=== PATIENT | female | born 1935 | race Caucasian/White ===

== ENCOUNTER → 2017-03-03 | Outpatient (CLI) | payer MEDICARE ==
[~2017-03-03] MED LIST: ASCO500T PO; ASPI1TAB PO; ASPI1TAB15 PO; BUSP5TA PO; CODCAP PO; COLA100C5 PO; COUM2.5T17 PO; COUM7.5T PO; CRAN500C2 PO; FERR32TA PO; GEMF600T PO; GLUC750T22 PO; GLUCTAB6 PO; IRBE300T10 PO; KRIL300C PO; LEVO112T2 PO; LIDO5TD TD; MAPA325T2 PO; MELO7.5T7 PO; METO1TAB7 PO; OMEP40CA2 PO; PEG1POW PO; PERC5TAB12 PO; POTA99TA PO; PRAV40TA2 PO; SENN1TAB2 PO; SERT25TA88 PO; SERT50TA PO; VITA100072 PO; WELLTAB38 PO
--- NOTE | 2017-03-03 11:00 | REPMRS ---
Patient History The patient states she has not had a clinical breast exam in over a year. Patient is postmenopausal. Family history of breast cancer in sister at age 78, breast cancer in sister at age 72, and unknown cancer in brother at age 67. Benign radio exam breast specimen of the left breast, April 04, 2016. Benign stereotatic loc for ea lesion of the left breast, April 04, 2016. Digital Mammo Screening Bilat: March 03, 2017 - Exam #: [id number] Bilateral CC and MLO view(s) were taken. Technologist: Ashley Garcia, Technologist Prior study comparison: March 08, 2016, left breast digital mammo diagnostic unilateral performed at [facility]. February 28, 2016, bilateral digital mammo screening bilat performed at [facility]. FINDINGS: There are scattered fibroglandular densities. There is a needle biopsy marker clip in the left breast. There is a moderate amount of residual fibroglandular tissue which is fairly symmetric. There is no interval development of dominant mass, architectural distortion, or clustered microcalcification typical of malignancy. There has been no change in the appearance of the mammogram from the prior studies. ASSESSMENT: BI-RADS/ACR category 2 mammogram. Benign finding(s). Recommendation Routine screening mammogram of both breasts in 1 year (for women over age 40). This mammogram was interpreted with the aid of an FDA-approved computer-aided dectection system. Electronically Signed By: Hector Mcfarland MD 03/03/17 1100
== END ==
LOC: M RAD 09:56
PROVIDERS: ATTEND Nurse Practitioner Adult Health
DX: Z12.31 Encounter for screening mammogram for malignant neoplasm of breast (principal)

== ENCOUNTER → 2017-03-10 | Outpatient (REF) | payer MEDICARE ==
[2017-03-10 14:08] LABS: BASO % 0.8 % (0.0-1.0); EOS # 0.1 K/mm3 (0.0-0.50); EOS % 1.4 % (0.0-3.0); LYMPH # 0.8 K/mm3 (1.5-4.5); MEAN CORPUSCULAR HGB CONC 33.5 g/dl (32.0-36.5); MEAN CORPUSCULAR VOLUME 92.6 fl (80.0-96.0); MONO # 0.3 K/mm3 (0.0-0.8); MONO % 5.6 % (0.0-5.0); NEUTROPHILS % 76.9 % (36.0-66.0); RED CELL DISTRIBUTION WIDTH 12.5 % (11.5-14.5); WHITE BLOOD COUNT 5.2 K/mm3 (4.0-10.0)
[2017-03-10 14:59] LABS: ALBUMIN/GLOBULIN RATIO 1.29 (1.00-1.93); ALKALINE PHOSPHATASE 58 U/L (45-117); ALT/SGPT 17 U/L (12-78); ANION GAP 7 MEQ/L (8-16); AST/SGOT 18 U/L (15-37); BILIRUBIN,TOTAL 0.5 MG/DL (0.2-1.0); BLOOD UREA NITROGEN 23 MG/DL (7-18); CALCIUM LEVEL 10.5 MG/DL (8.8-10.2); CARBON DIOXIDE LEVEL 29 MEQ/L (21-32); CHLORIDE LEVEL 101 MEQ/L (98-107); CHOLESTEROL LEVEL 146 MG/DL (<200); FREE T4 1.16 NG/DL (0.76-1.46); GLOMERULAR FILTRATION RATE > 60.0 (>32); GLUCOSE, FASTING 86 MG/DL (83-110); POTASSIUM SERUM 4.1 MEQ/L (3.5-5.1); SODIUM LEVEL 137 MEQ/L (136-145); TOTAL PROTEIN 7.1 GM/DL (6.4-8.2); TRIGLYCERIDES LEVEL 77 MG/DL (<150)
== END ==
LOC: M LABDRAW1 13:21
PROVIDERS: ATTEND Nurse Practitioner Adult Health
DX: Z51.81 Encounter for therapeutic drug level monitoring (principal); Z79.899 Other long term (current) drug therapy; E78.00 Pure hypercholesterolemia, unspecified; I49.9 Cardiac arrhythmia, unspecified; R55 Syncope and collapse; E55.9 Vitamin D deficiency, unspecified; E03.9 Hypothyroidism, unspecified; E78.1 Pure hyperglyceridemia

== ENCOUNTER 2017-03-12 06:36 | Inpatient (IN) | payer MEDICARE, BC ==
[~2017-03-12] VITALS: Ht 160 cm; Wt 61.1 kg
[~2017-03-12 06:36] MED LIST changes: -ASPI1TAB15 PO; -BUSP5TA PO; -GLUCTAB6 PO; -KRIL300C PO; -SERT25TA88 PO
[2017-03-12] MEDS ORDERED: MORPHINE 2 MG/ML 1ML SYRINGE IV ONE (07:30)
[2017-03-12] MEDS ORDERED: ONDANSETRON 4MG/2ML VIAL (J2405) IV ONE (07:30)
[2017-03-12 07:51] LABS: BASO % 0.5 % (0.0-1.0); EOS % 0.3 % (0.0-3.0); LARGE UNSTAINED CELL # 0.1 K/mm3 (0.0-0.4); LARGE UNSTAINED CELL % 1.2 % (0.0-4.0); LYMPH # 0.8 K/mm3 (1.5-4.5); LYMPH % 8.9 % (24.0-44.0); MEAN CORPUSCULAR HEMOGLOBIN 30.7 pg (27.0-33.0); MEAN CORPUSCULAR HGB CONC 34.6 g/dl (32.0-36.5); MEAN CORPUSCULAR VOLUME 88.7 fl (80.0-96.0); MONO # 0.5 K/mm3 (0.0-0.8); NEUTROPHILS % 83.1 % (36.0-66.0); PLATELET COUNT, AUTOMATED 241 k/mm3 (150-450); RED CELL DISTRIBUTION WIDTH 12.1 % (11.5-14.5); WHITE BLOOD COUNT 8.4 K/mm3 (4.0-10.0)
[2017-03-12 08:05] LABS: ANION GAP 8 MEQ/L (8-16); BLOOD UREA NITROGEN 26 MG/DL (7-18); CALCIUM LEVEL 10.4 MG/DL (8.8-10.2); CARBON DIOXIDE LEVEL 25 MEQ/L (21-32); CHLORIDE LEVEL 100 MEQ/L (98-107); CREATININE FOR GFR 0.94 MG/DL (0.55-1.02); GLOMERULAR FILTRATION RATE > 60.0 (>32); GLUCOSE, FASTING 93 MG/DL (83-110); POTASSIUM SERUM 3.8 MEQ/L (3.5-5.1); SODIUM LEVEL 133 MEQ/L (136-145)
--- NOTE | 2017-03-12 08:58 | REP ---
Lumbar spine five views: There are no comparison studies. There is diffuse demineralization. Vertebral body heights are normal. No compression deformities. There is disc space narrowing and degenerative disc disease at L1-2, L4-5 and L5 S1. There is a degenerative calcification within the intervertebral disc annulus anteriorly at L4-5. No spondylolysis is identified. There is grade 1 anterolisthesis of L4-5, likely degenerative. 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 There is mild lumbar scoliosis convex left. The pedicles and sacroiliac articulations are unremarkable. There is internal fixation of the left hip. There is questionably a calcification superimposed over the left kidney. Impression: Multilevel degenerative disc disease. Mild scoliosis. Degenerative grade 1 anterolisthesis of L4. Demineralization. No vertebral body compression deformities. There is question of a calcification superimposed over the left kidney. Signed by Pablito Bar MD 03/12/2017 08:48 A
[2017-03-12 09:10] LABS: ERYTHROCYTE SEDIMENTATION RATE 41 mm/hr (0-30)
[2017-03-12] MEDS ORDERED: MORPHINE 2 MG/ML 1ML SYRINGE IV PRN ×2 (12:30→18:45)
--- NOTE | 2017-03-12 16:44 | REP ---
MRI LUMBAR BEFORE AND AFTER THE ADMINISTRATION OF INTRAVENOUS GADOLINIUM. Gadolinium utilized: 12 mL of ProHance. HISTORY: Possible discitis. The patient has severe pain and difficulty ambulating. COMPARISON: 01/20/2012 There is disc space hydrational signal loss at every level, status quo with disc space height loss universally at L4-5 and L5-S1, status quo. More mild posterior disc space narrowing is seen at all other levels. The marrow signal is again seen to be within normal limits. There is no abnormal signal seen in the imaged portion of the spinal cord. At the L1-2 level, there is a broad-based annular bulge which is unchanged. The small right paracentral disc protrusion seen on the prior exam has dessicated. Degenerative facet joint changes are again seen bilaterally with thickening of the ligamentum flava and the factors in concert are again seen to cause mild central canal stenosis. There is no foraminal narrowing or acute disc extrusion. At the L2-3 level, there is a broad based annular bulge seen in conjunction with degenerative facet joint changes bilaterally and thickening of the ligamentum flava. The anterior surface of the thecal sac is flattened and straightened by the discogenic change and the factors in concert are causing mild central canal stenosis, status quo. There is no foraminal stenosis or disc extrusion. At the L3-4 level, there is a large asymmetric broad-based annular bulge with a prominent left posterolateral component which impinges upon the left foraminal L3 nerve. The right L3 foraminal nerve exits freely. Hypertrophic degenerative facet joint changes are seen bilaterally with thickening of the ligamentum flava and all factors in concert are again seen to cause moderate central canal stenosis which has increased somewhat from the prior exam. There is no evidence of an acute disc extrusion. At the L4-5 level, there is a broad-based annular bulge seen in conjunction with degenerative facet joint changes bilaterally and thickening of the ligamentum flava. The factors in concert are again seen to cause moderate central canal stenosis and right L4 foraminal nerve compression. The left L4 foraminal nerve is non-compressed. No acute disc extrusion has developed. Note is again made of a 4 mm spondylolisthesis of L4 upon L5, status quo. At the L5-S1 level, an asymmetric broad-based annular bulge is again noted which mildly compresses the anterior thecal sac causing a slight concave anterior deformity which has increased minimally from the prior exam. No acute disc extrusion has developed. Degenerative facet joint changes are present bilaterally with thickening of the ligamentum flava again seen to cause mild compression of the right L5 foraminal nerve. Note is made of T2 hypersignal and enhancement involving the soft tissues surrounding the L3-4 and L5 facet joints. There is a small amount of fluid within the L3-4 facet joints and a minimal amount of fluid in the L2-3 facet joints. The small amount of fluid has increased from the prior exam. There is no evidence of abnormal enhancement involving any of the discs and there is no abnormal paraspinal vertebral body enhancement. IMPRESSION: Multilevel discogenic changes and facet joint degenerative changes as described above and with evidence of posterior soft tissue edema of uncertain etiology which should be correlated clinically with appropriate followup if necessary. No well-defined abscess is noted. Signed by Bonilla Sorensen DO 03/12/2017 05:07 P
[2017-03-12] MEDS ORDERED: BUSP5TA PO (17:59)
[2017-03-12] MEDS ORDERED: GLUCTAB6 PO (17:59)
[2017-03-12] MEDS ORDERED: MELO7.5T7 PO (17:59)
[2017-03-12] MEDS ORDERED: ASPI1TAB15 PO (17:59)
[2017-03-12] MEDS ORDERED: POTA99TA PO (17:59)
[2017-03-12] MEDS ORDERED: SERT25TA88 PO (17:59)
[2017-03-12] MEDS ORDERED: METO1TAB7 PO (17:59)
[2017-03-12] MEDS ORDERED: IRBE300T10 PO (17:59)
[2017-03-12] MEDS ORDERED: NS 1,000 ML IV SCH (18:45)
[2017-03-12] MEDS ORDERED: ONDANSETRON 4MG/2ML VIAL (J2405) IV PRN (18:45)
--- NOTE | 2017-03-12 19:38 | HPEPDOC ---
Medical History and Physical Date of Admission Mar 12, 2017 at 18:38 History and Physical PRIMARY CARE PROVIDER: ATTENDING: Dr. Naseem Hua CHIEF COMPLAINT: Back pain HISTORY OF PRESENT ILLNESS: This 81-year-old female past medical history of hypertension, GERD, hypothyroidism, hyperlipidemia who presents with intractable back pain. Patient states that patient had developed right buttock and lumbar pain since last night. States it happened suddenly. No precipitating events. No trauma or falls. No fevers or chills. No lower extremity weakness or numbness. States she' s having difficulty lifting her right leg and maintaining it elevated secondary to the pain. Does note right buttock as well as lumbar pain however no radiculopathy down her lower extremities. Patient denies any prior episodes. In the ED patient had an MRI of the lumbar spine with results noted below. Dr. Rodriguez evaluated the patient in the ED, and has reviewed the images of the MRI of the lumbar spine with recommendations for admission for pain control and further workup. Pain management consultation for possible trigger point injections, as well as a CT-guided biopsy of the right L4 paraspinal lesion. He also notes that if no improvement is noted, neurosurgery will be considered for decompression and fusion. PAST MEDICAL HISTORY: As per HPI PAST SURGICAL HISTORY: History of left hip fracture status post repair May 2016, hysterectomy, tonsillectomy, foot surgery SOCIAL HISTORY: Denies tobacco, alcohol, illicit drug use. Lives with family FAMILY HISTORY: Noncontributory ALLERGIES: Please see below. REVIEW OF SYSTEMS: HEENT: Denies sore throat/headache CARDIOVASCULAR: Denies chest pain/palpitations RESPIRATORY: Denies shortness of breath/cough GASTROINTESTINAL: denies nausea/vomiting GENITOURINARY: Denies dysuria/urinary urgency. MUSCULOSKELETAL: Denies myalgias/arthralgias NEUROLOGICAL: Denies any focal weakness. Increased pain with raising RLE. HOME MEDICATIONS: Please see below. PHYSICAL EXAMINATION: Vitals: (see below) General: No acute distress, laying comfortably in bed. HEENT: Moist mucous membranes. Neck: No JVD or lymphadenopathy Cardiac: RRR, No murmurs Pulm: Clear to auscultation b/l. No wheezing, rhonchi Abd: NT/ND + BS Ext: No edema or cyanosis. Back - Tender to palpation R paraspinal region. Neuro: Strength 5/5 BUE. 5/5 strength LLE. 4/5 strength RLE. Negative Babinki. Sensation to fine touch/pinprick BLE intact. LABORATORY DATA: See below. IMAGING: MRI lumbar spine 03/12/17 There is disc space hydrational signal loss at every level, status quo with disc space height loss universally at L4-5 and L5-S1, status quo. More mild posterior disc space narrowing is seen at all other levels. The marrow signal is again seen to be within normal limits. There is no abnormal signal seen in the imaged portion of the spinal cord. At the L1-2 level, there is a broad-based annular bulge which is unchanged. The small right paracentral disc protrusion seen on the prior exam has dessicated. Degenerative facet joint changes are again seen bilaterally with thickening of the ligamentum flava and the factors in concert are again seen to cause mild central canal stenosis. There is no foraminal narrowing or acute disc extrusion. At the L2-3 level, there is a broad based annular bulge seen in conjunction with degenerative facet joint changes bilaterally and thickening of the ligamentum flava. The anterior surface of the thecal sac is flattened and straightened by the discogenic change and the factors in concert are causing mild central canal stenosis, status quo. There is no foraminal stenosis or disc extrusion. At the L3-4 level, there is a large asymmetric broad-based annular bulge with a prominent left posterolateral component which impinges upon the left foraminal L3 nerve. The right L3 foraminal nerve exits freely. Hypertrophic degenerative facet joint changes are seen bilaterally with thickening of the ligamentum flava and all factors in concert are again seen to cause moderate central canal stenosis which has increased somewhat from the prior exam. There is no evidence of an acute disc extrusion. At the L4-5 level, there is a broad-based annular bulge seen in conjunction with degenerative facet joint changes bilaterally and thickening of the ligamentum flava. The factors in concert are again seen to cause moderate central canal stenosis and right L4 foraminal nerve compression. The left L4 foraminal nerve is non-compressed. No acute disc extrusion has developed. Note is again made of a 4 mm spondylolisthesis of L4 upon L5, status quo. At the L5-S1 level, an asymmetric broad-based annular bulge is again noted which mildly compresses the anterior thecal sac causing a slight concave anterior deformity which has increased minimally from the prior exam. No acute disc extrusion has developed. Degenerative facet joint changes are present bilaterally with thickening of the ligamentum flava again seen to cause mild compression of the right L5 foraminal nerve. Note is made of T2 hypersignal and enhancement involving the soft tissues surrounding the L3-4 and L5 facet joints. There is a small amount of fluid within the L3-4 facet joints and a minimal amount of fluid in the L2-3 facet joints. The small amount of fluid has increased from the prior exam. There is no evidence of abnormal enhancement involving any of the discs and there is no abnormal paraspinal vertebral body enhancement. IMPRESSION: Multilevel discogenic changes and facet joint degenerative changes as described above and with evidence of posterior soft tissue edema of uncertain etiology which should be correlated clinically with appropriate followup if necessary. No well-defined abscess is noted. Lumbar X ray 03/12/17 Impression: Multilevel degenerative disc disease. Mild scoliosis. Degenerative grade 1 anterolisthesis of L4. Demineralization. No vertebral body compression deformities. There is question of a calcification superimposed over the left kidney. MICROBIOLOGY: Please see below. ASSESSMENT/PLAN: 1. Intractable back pain with MRI noting Lumbar spine with posterior soft tissue edema of unknown etiology as well as degenerative joint disease. Neurosurgery does not recommend steroids or antibiotics at this time. Patient does have mild elevations of her ESR/CRP. No leukocytosis. No fevers. Patient will be started on a pain regimen and pain management has been consulted. CT- guided biopsy has been ordered as recommended by neurosurgery. We'll follow closely with neurosurgery for further recommendations. Neuro checks every 4 hours. 2. History of GERD- continue home meds 3. History of hypertension- continue home meds 4. Hyperlipidemia- continue home meds 5. Mild hypercalcemia- we'll repeat in the a.m. Asymptomatic. Started on IV fluids. ? Need for skeletal survey given current lumbar pathology. DVT prophylaxis SCDs. Consider Lovenox after CT-guided biopsy is obtained. Patient will be followed by Dr. Naseem Hua starting 03/13/17 at 7 AM. Vital Signs Vital Signs Date Time Temp Pulse Resp B/P (MAP) Pulse Ox O2 Delivery O2 Flow Rate FiO2 03/12/17 15:11 18 03/12/17 15:09 93 03/12/17 14:53 98.1 84 Room Air 127/60 (82) Laboratory Data Labs 24H Laboratory Tests 2 03/12/17 07:39: White Blood Count 8.4, Red Blood Count 4.09, Hemoglobin 12.6, Hematocrit 36.3, Mean Corpuscular Volume 88.7, Mean Corpuscular Hemoglobin 30.7, Mean Corpuscular Hemoglobin Concent 34.6, Red Cell Distribution Width 12.1, Platelet Count 241, Neutrophils (%) (Auto) 83.1H, Lymphocytes (%) (Auto) 8.9L, Monocytes (%) (Auto) 6.0H, Eosinophils (%) (Auto) 0.3, Basophils (%) (Auto) 0.5, Neutrophils # (Auto) 7.0, Lymphocytes # (Auto) 0.8L, Monocytes # (Auto) 0.5, Eosinophils # (Auto) 0.0, Basophils # (Auto) 0.0, Large Unclassified Cells % 1.2 , Large Unclassified Cells # 0.1, Erythrocyte Sedimentation Rate 41H, Anion Gap 8, Glomerular Filtration Rate > 60.0, Blood Urea Nitrogen 26H, Creatinine 0.94, Sodium Level 133L, Potassium Level 3.8, Chloride Level 100, Carbon Dioxide Level 25, Calcium Level 10.4H, C-Reactive Protein, Quantitative 1.78H CBC/BMP Laboratory Tests 03/12/17 07:39 Red Blood Count 4.09, Mean Corpuscular Volume 88.7, Mean Corpuscular Hemoglobin 30.7, Mean Corpuscular Hemoglobin Concent 34.6, Red Cell Distribution Width 12.1 , Neutrophils (%) (Auto) 83.1 H, Lymphocytes (%) (Auto) 8.9 L, Monocytes (%) ( Auto) 6.0 H, Eosinophils (%) (Auto) 0.3, Basophils (%) (Auto) 0.5, Neutrophils # (Auto) 7.0, Lymphocytes # (Auto) 0.8 L, Monocytes # (Auto) 0.5, Eosinophils # (Auto) 0.0, Basophils # (Auto) 0.0, Calcium Level 10.4 H Home Medications Scheduled (Sertraline HCl) 25 Mg Tab, 25 MG PO QHS (Glucosamine Chondroitin) 1 Tab Tab, 1 TAB PO DAILY Ascorbic Acid (Ascorbic Acid) 500 Mg Tab, 500 MG PO DAILY Aspirin (Aspirin) 81 Mg Tab, 81 MG PO QHS Bupropion HCl (Wellbutrin Xl) 150 Mg Tab, 150 MG PO DAILY Buspirone HCl (Buspirone HCl) 5 Mg Tab, 5 MG PO BID Cod Liver Oil (Cod Liver Oil) 1 Cap Cap, 1 CAP PO DAILY Cranberry Extract (Cranberry) 500 Mg Cap, 500 MG PO DAILY Cyanocobalamin (Vitamin B12) 1,000 Mcg Tab, 1,000 MCG PO DAILY Gemfibrozil (Gemfibrozil) 600 Mg Tab, 600 MG PO QPM Irbesartan (Irbesartan) 300 Mg Tab, 300 MG PO DAILY Levothyroxine Sodium (Synthroid) 112 Mcg Tab, 112 MCG PO QAM Meloxicam (Meloxicam) 7.5 Mg Tab, 7.5 MG PO DAILY Metoprolol Succinate (Metoprolol Succinate ER) 50 Mg Tab, 50 MG PO QHS Omeprazole (Omeprazole) 40 Mg Cap, 40 MG PO DAILY Potassium (Potassium) 99 Mg Tab, 99 MG PO QPM Pravastatin Sod (Pravastatin Sodium) 40 Mg Tab, 40 MG PO QHS Allergies Coded Allergies: Magnesium (Verified Allergy, Severe, vomit, 03/12/17) Hydrocodone (Unverified Allergy, Unknown, HALLUCINATIONS, 03/12/17) Penicillins (Verified Allergy, Unknown, 11/23/12) Penicillins Cross Reactors (Verified Allergy, Unknown, 11/23/12) Sulfa Drugs (Verified Allergy, Unknown, 11/23/12) Sulfa Drugs Cross Reactors (Verified Allergy, Unknown, 11/23/12) Tetracycline (Verified Allergy, Unknown, 11/23/12) JUNG RIOS MD Mar 12, 2017 19:38
[2017-03-12 22:25] VITALS: BP 153/70
[2017-03-13] MEDS: SERTRALINE HCL 25 MG TABLET PO SCH ×2 (00:07→21:38)
[2017-03-13] MEDS: PERCOCET 5MG/325MG TAB PO PRN ×2 (00:07→09:48)
[2017-03-13] MEDS: ASPIRIN 81 MG ENTERIC TAB PO SCH ×2 (00:08→21:38)
[2017-03-13] MEDS: GEMFIBROZIL 600 MG TAB PO SCH ×2 (00:08→21:38)
[2017-03-13] MEDS: PRAVASTATIN 20 MG TAB PO SCH ×2 (00:08→21:37)
[2017-03-13] MEDS: METOPROLOL SUCC (TopROL XL) 50MG **XL** TAB PO SCH ×2 (00:08→21:38)
[2017-03-13] MEDS: busPIRone 5 MG TAB PO SCH ×3 (00:08→21:38)
[2017-03-13 02:00] VITALS: BP 124/61
[2017-03-13] MEDS: LEVOTHYROXINE 112MCG TABLET (0.112MG) PO SCH (05:53)
[2017-03-13 06:00] VITALS: BP 131/59
[2017-03-13 07:35] LABS: IONIZED CALCIUM 5.3 MG/DL (4.5-5.3)
[2017-03-13 07:40] LABS: MEAN CORPUSCULAR HEMOGLOBIN 30.2 pg (27.0-33.0); MEAN CORPUSCULAR HGB CONC 33.3 g/dl (32.0-36.5); MEAN CORPUSCULAR VOLUME 90.9 fl (80.0-96.0); RED CELL DISTRIBUTION WIDTH 12.2 % (11.5-14.5)
[2017-03-13 08:08] LABS: ALBUMIN 3.4 GM/DL (3.2-5.2); ALBUMIN/GLOBULIN RATIO 1.21 (1.00-1.93); ALKALINE PHOSPHATASE 56 U/L (45-117); ALT/SGPT 14 U/L (12-78); ANION GAP 7 MEQ/L (8-16); AST/SGOT 12 U/L (15-37); BILIRUBIN,TOTAL 0.6 MG/DL (0.2-1.0); BLOOD UREA NITROGEN 24 MG/DL (7-18); CALCIUM LEVEL 9.9 MG/DL (8.8-10.2); CARBON DIOXIDE LEVEL 28 MEQ/L (21-32); CHLORIDE LEVEL 100 MEQ/L (98-107); CREATININE FOR GFR 0.89 MG/DL (0.55-1.02); GLOMERULAR FILTRATION RATE > 60.0 (>32); GLUCOSE, FASTING 92 MG/DL (83-110); POTASSIUM SERUM 4.4 MEQ/L (3.5-5.1); SODIUM LEVEL 135 MEQ/L (136-145); TOTAL PROTEIN 6.2 GM/DL (6.4-8.2)
[2017-03-13] MEDS: OMEPRAZOLE 20 MG CAP PO SCH (09:46)
[2017-03-13] MEDS: CYANOCOBALAMIN 500 MCG TAB PO SCH (09:46)
[2017-03-13] MEDS: ASCORBIC ACID 500 MG TAB PO SCH (09:47)
[2017-03-13] MEDS: IRBESARTAN 150 MG TAB PO SCH (09:47)
[2017-03-13] MEDS: MELOXICAM (MOBIC) 7.5 MG TAB PO SCH (09:47)
[2017-03-13] MEDS: buPROPion **XL** TABLET 150MG (WELLBUTRIN XL) PO SCH (09:47)
--- NOTE | 2017-03-13 12:52 | IPN ---
DATE: 03/13/2017 SUBJECTIVE: Today, the patient tells me she feels significant better this morning. She tells me that she is able to get up and walk to the bathroom this morning, which she was unable to do yesterday. She tells me that she still has some soreness and pain in her low back into the right buttock, but it is significantly improved. She denies chest pain, paresthesias, bladder or bladder incontinence, weakness. OBJECTIVE: VITAL SIGNS: Temperature 97.6, pulse 50, respiratory rate 18, blood pressure 131/59, oxygen saturation 94% on room air. GENERAL: She is a frail elderly female laying flat in bed. She is accompanied by her daughter and her . She does not appear to be in any acute distress whatsoever. HEENT: Cranial nerves II through XII are grossly intact. She has moist mucous membranes. No elevation of central venous pressure. CARDIOVASCULAR EXAM: S1, S2 regular. RESPIRATORY EXAM: Clear. ABDOMINAL EXAM: Benign. EXTREMITIES: No clubbing, cyanosis, or edema. She is able to pass a straight leg test on both sides. She does have tenderness in her L5 midline area as well as her right sacroiliac joint. Her pain is reproducible to palpation. LABORATORY STUDIES: WBC 6.0, hemoglobin 11.6, platelet count 237. She has an ESR of 41. Chemistry panel: Sodium 135, potassium 4.4, chloride 100, bicarb 28, BUN 24, creatinine 0.8. Calcium is 9.9. Ionized calcium is within normal limits. CRP yesterday was 1.7. No microbiology has been drawn. Lumbar spine MRI reveals multilevel discogenic changes in the fossa joint. Degenerative change with evidence of posterior soft tissue edema of uncertain etiology. No ill defined abscess is noted. ASSESSMENT/PLAN: This is an 81-year-old female with low back pain and right SI joint pain. PROBLEMS: 1. Intractable back pain. The patient's back pain is no longer intractable. It started Friday evening with an ache in the right SI joint area and as of Friday was intractable. This morning easily controlled. She has not required any IV narcotics since yesterday afternoon. She has received two tablets of Percocet since midnight and her pain is well controlled. I have had the chance to speak with Dr. Rodriguez of neurosurgery who previously had recommended not using steroids or antibiotics. He did suggest pain management consult and CT guided biopsy. I cannot appreciate any clear well defined mass that would require surgical intervention and given that her symptoms are improved, we will proceed with biopsy, but I suspect that she may have some SI joint inflammation and may benefit from a steroid injection from the pain clinic. Consult has been placed. Will have the patient work with physical therapy, up and ambulate. Continue with meloxicam and Percocet as needed. 2. Mood disorder. Continue with Wellbutrin, buspirone, Zoloft. 3. B12 deficiency. Continue with supplementation. 4. Hypertension, controlled. Continue with irbesartan. The patient is on Toprol XL. 5. Gastroesophageal reflux disease (GERD). Continue with omeprazole. 6. Hypothyroidism. Continue with Synthroid. 7. Dyslipidemia. Continue with gemfibrozil and pravastatin. 8. Hypercalcemia, resolved. 9. Deep vein thrombosis (DVT) prophylaxis. Will consider following CT guided biopsy. For the time being, she is up and able to ambulated with sequential and thromboembolic deterrent stockings (TEDS). Will continue to follow this patient closely. At this time, I see no need for any operative intervention.
[2017-03-13 14:00] VITALS: BP 127/66
--- NOTE | 2017-03-13 20:32 | CR ---
DATE OF CONSULTATION: 03/13/2017 CHIEF COMPLAINT: Low back pain. HISTORY OF PRESENT ILLNESS: Wendy is a pleasant 81-year-old female who had acute onset of low back pain and right leg pain approximately 2 days ago and was admitted yesterday for intractable back pain. She is doing much better today. She has been up walking with family without much distress. She has only required a couple of doses of Percocet. Imaging studies of her lumbosacral (LS) spine are revealing, mainly arthritic changes. She has never had chronic low back pain or back pain issues in the past. Denies recent fever, illness, or weight loss. Denies bowel or bladder incontinence. Has supportive family. She is hoping to go home tomorrow. PAST MEDICAL HISTORY: 1. Hypertension. 2. Gastroesophageal reflux disease (GERD). 3. Hypothyroidism. 4. Hyperlipidemia. PAST SURGICAL HISTORY: 1. Left hip fracture status post repair May 2016. 2. Hysterectomy. 3. Tonsillectomy. 4. Foot surgery. SOCIAL HISTORY: Lives with her . Supportive family nearby. Denies use of alcohol, tobacco, or illicit drugs. FAMILY HISTORY: Noncontributory. ALLERGIES: HYDROCODONE, MAGNESIUM, PENICILLINS, PENICILLIN CROSS-REACTORS, SULFA DRUGS, SULFA DRUG CROSS-REACTORS, TETRACYCLINE. REVIEW OF SYSTEMS: An 11-point review of systems negative except for reports in history of present illness (HPI). PHYSICAL EXAMINATION: Awake, alert, pleasant. Normal affect. VITAL SIGNS: 97.8, 73, 20, blood pressure (BP) 127/66, oxygen saturation 99% on room air. CARDIAC: S1, S2. Normal rate and rhythm. RESPIRATORY: Lung sounds clear. Respirations nonlabored. Inspection of spine: Mild tenderness with palpation over the LS axis and lumbar facet area. Specific point tenderness noted over sacroiliac joint (SIJ) area with deep palpation. left greater than right. NEUROMUSCULAR: Able to move all four extremities. Normal sensation to light touch, upper and lower extremities. No edema. ASSESSMENT: 1. Lumbosacral spondylosis. 2. Sacroiliac joint pain. 3. Lumbar spinal stenosis. PLAN: Discussed with the patient and family options of injections for pain, mainly, to start with, sacroiliac joint injection. Potential risks and benefits were reviewed. At this point, the patient is doing much better and really does not want to take on any risks associated with the procedure, and she is aware that if this becomes a chronic issue for her, she could see us as an outpatient per referral of her primary care provider. Continue with efforts with physical therapy. Hopefully she will be able to be discharged soon. If you have any questions or concerns, please do not hesitate to contact us.
[2017-03-13 22:00] VITALS: BP 148/76
[2017-03-14 04:00] VITALS: BP 127/60
[2017-03-14] MEDS: LEVOTHYROXINE 112MCG TABLET (0.112MG) PO SCH (05:51)
[2017-03-14 06:29] LABS: MEAN CORPUSCULAR HEMOGLOBIN 30.9 pg (27.0-33.0); MEAN CORPUSCULAR HGB CONC 34.2 g/dl (32.0-36.5); MEAN CORPUSCULAR VOLUME 90.3 fl (80.0-96.0); RED CELL DISTRIBUTION WIDTH 12.2 % (11.5-14.5); WHITE BLOOD COUNT 8.4 K/mm3 (4.0-10.0)
[2017-03-14 06:41] LABS: ANION GAP 9 MEQ/L (8-16); BLOOD UREA NITROGEN 19 MG/DL (7-18); CALCIUM LEVEL 9.9 MG/DL (8.8-10.2); CARBON DIOXIDE LEVEL 27 MEQ/L (21-32); CHLORIDE LEVEL 100 MEQ/L (98-107); CREATININE FOR GFR 0.89 MG/DL (0.55-1.02); GLOMERULAR FILTRATION RATE > 60.0 (>32); GLUCOSE, FASTING 109 MG/DL (83-110); POTASSIUM SERUM 4.2 MEQ/L (3.5-5.1); SODIUM LEVEL 136 MEQ/L (136-145)
--- NOTE | 2017-03-14 08:31 | REP ---
Chest, single PA view, 08:08 a.m.: Comparison is 2014. There are no focal infiltrates. No pleural effusions. No masses. The lung caballero are clear. Cardiac size is normal. The paulo, mediastinum, and bony thorax are unremarkable. Impression: Negative single PA view of the chest. Signed by Pablito Bar MD 03/14/2017 08:23 A
[2017-03-14] MEDS: MELOXICAM (MOBIC) 7.5 MG TAB PO SCH (09:28)
[2017-03-14] MEDS: busPIRone 5 MG TAB PO SCH (09:28)
[2017-03-14 09:29] VITALS: BP 127/60
[2017-03-14] MEDS: CYANOCOBALAMIN 500 MCG TAB PO SCH (09:29)
[2017-03-14] MEDS: IRBESARTAN 150 MG TAB PO SCH (09:29)
[2017-03-14] MEDS: OMEPRAZOLE 20 MG CAP PO SCH (09:30)
[2017-03-14] MEDS: ASCORBIC ACID 500 MG TAB PO SCH (09:30)
[2017-03-14] MEDS: buPROPion **XL** TABLET 150MG (WELLBUTRIN XL) PO SCH (09:30)
[2017-03-14 10:00] VITALS: BP 132/67
[2017-03-14 14:00] VITALS: BP 126/63
--- NOTE | 2017-03-15 16:08 | DSES ---
DATE OF ADMISSION: 03/12/2017 DATE OF DISCHARGE: 03/14/2017 DISCHARGE DIAGNOSES: 1. Sacroiliac joint pain. 2. Lumbosacral spondylosis. 3. Acute on chronic back pain. 4. MRI abnormality. 5. Mood disorder. 6. B12 deficiency. 7. Hypertension. 8. Gastroesophageal reflux disease. 9. Hypothyroidism. 10. Dyslipidemia. CONSULTATIONS: 1. Xenia Gunter, pain clinic. 2. Dr. Rodriguez, neurosurgery. HOSPITAL COURSE: The patient is an 71-year-old female who went to bed Friday evening with some aching pain in her right sacroiliac region. She woke up on Friday with this pain but she was unable to walk. She presented to the emergency room. She was treated with non-steroidal anti-inflammatory drugs (NSAIDS), Percocet, intravenous (IV) morphine and physical therapy. Within 24 hours, her pain did significantly improve. She was reportedly seen by Dr. Rodriguez on the day of admission. A consult was placed to him formally, and I did have a chance to speak with him regarding her care. He felt as long as she was able to ambulate, no neurosurgical intervention was necessary. At the time of my dictation, there is still no documentation from neurosurgery available in the chart. The patient herself reports that her symptoms are markedly improved. She has been working with and cleared by physical therapy today. SUBJECTIVE: The patient feels great and would like to go home. She denies chest pain, shortness of breath, fever, chills, nausea, vomiting or diarrhea, saddle paresthesias, bladder or bowel incontinence. OBJECTIVE: VITAL SIGNS: Temperature 99, pulse 61, respiratory rate 20, blood pressure 127/60, oxygen saturation 94% on room air. GENERAL: She is a pleasant, frail elderly female who sits up to greet me in bed as I enter the room. She does not appear to be in any acute distress. HEENT: Cranial nerves II through XII are grossly intact. She is wearing hearing aids. She is wearing bifocal lenses. She has moist mucous membranes. No elevation of central venous pressure (CVP). CARDIOVASCULAR: S1, S2 regular. RESPIRATORY: Clear. ABDOMEN: Benign. EXTREMITIES: No clubbing, cyanosis or edema. Still has tenderness over her right sacroiliac joint; however, is markedly decreased even from yesterday's exam. LABORATORY DATA: WBC 8.4, hemoglobin 11.6, hematocrit 33.8, platelet count 250. Chemistry panel: Sodium 136, potassium 4.2, chloride 100, bicarbonate 27, BUN 19, creatinine 0.8. MICROBIOLOGY: Blood cultures are thus far negative. IMAGING: The patient did have a chest x-ray which was a negative PA view of the chest. She did have a lumbar spine MRI which revealed evidence of posterior soft tissue edema of uncertain etiology. No well-defined abscess noted. The patient also had a lumbar spine x-ray that revealed multilevel degenerative disc disease, mild scoliosis. Degenerative grade one anterolisthesis of L4. No vertebral body compression deformities. ASSESSMENT AND PLAN: This is an 81-year-old female with sacroiliac joint pain and degenerative disc disease. 1. Back pain secondary to sacroiliac (SI) joint pain and degenerative disc disease. The patient was admitted for intractable back pain, but it did resolve within 24 hours. Well localizing, easily reproducible at the right SI joint area. Pain management did see the patient, and their help is greatly appreciated. The patient was offered a joint injection; however, she felt as though her symptoms were improving and in weighing the risks and benefits, this was deferred. The patient. The patient was also seen by Dr. Rodriguez who, as mentioned above, recommended not using steroids or antibiotics, though he did suggest possibly a CT-guided biopsy, however, due to some posterior soft tissue edema noted on the radiology report. However, when discussed with radiology, there was no mass or clearly delineated lesion which was amenable for any potential biopsy. Given that her symptoms improved, I suspect that this likely had little to do with her presentation and pain. At this time, I would recommend she could repeat MRI of the lumbar spine without contrast in 4-6 weeks. No indication for any neurosurgical interventions at this time. The patient will be discharged with her home pain regimen, meloxicam. She is not requiring any significant narcotics in the 24 hours. 2. Mood disorder. Continue with Wellbutrin, buspirone and Zoloft. 3. B12 deficiency. Continue with supplementation. 4. Hypertension. Controlled with irbesartan and Toprol XL. 5. Gastroesophageal reflux disease. Continue with omeprazole. 6. Hypothyroidism. Continue with Synthroid. 7. Dyslipidemia. Continue with gemfibrozil and pravastatin. 8. Deep venous thrombosis (DVT) prophylaxis with sequentials, thromboembolism deterrent stockings (TEDs) and early ambulation. The patient has been cleared by physical therapy. DISPOSITION: At this time, the patient is being discharged home to the care of her family. She has been cleared by physical therapy. Her clinical status is resolved. She is to followup with her primary care provider (PCP) in seven days. Her activity is as tolerated. Her diet is as prior to admission. She has been advised to return to the emergency room (ER) if her symptoms worsen, and to consider a repeat outpatient MRI in 4-6 weeks. DISCHARGE MEDICATIONS: - ascorbic acid 500 mg as per the patient daily - aspirin 81 mg at bedtime - Wellbutrin XL 150 mg daily - buspirone 5 mg twice a day - cod liver oil as per the patient one capsule daily - cranberry extract as per the patient 500 mg daily - vitamin B12 1000 mcg daily - gemfibrozil 600 mg every evening - glucosamine chondroitin as per the patient one tablet daily - irbesartan 300 mg daily - Synthroid 112 mcg every morning - meloxicam 7.5 mg daily - metoprolol succinate 50 mg at bedtime - omeprazole 40 mg daily - potassium 99 mg every evening - pravastatin 40 mg at bedtime - sertraline 25 mg at bedtime Greater than 30 minutes were spent organizing disposition.
[2017-05-12] MEDS ORDERED: KRIL300C PO (17:33)
== END 2017-03-14 15:10 | disposition home or self-care (01) | DRG 552 ==
LOC: M ED 06:36 → EDBD 06:36 → M ED INP 18:38 → M MS5PR 22:20
PROVIDERS: ADMIT Internal Medicine; ATTEND Internal Medicine
DX: M53.3 Sacrococcygeal disorders, not elsewhere classified (principal); Z79.899 Other long term (current) drug therapy; E03.9 Hypothyroidism, unspecified; E78.5 Hyperlipidemia, unspecified; K21.9 Gastro-esophageal reflux disease without esophagitis; I10 Essential (primary) hypertension; M47.817 Spondylosis without myelopathy or radiculopathy, lumbosacral region; E53.8 Deficiency of other specified B group vitamins; F39 Unspecified mood [affective] disorder; Z79.82 Long term (current) use of aspirin; E83.52 Hypercalcemia; Z88.0 Allergy status to penicillin; Z88.5 Allergy status to narcotic agent; Z88.2 Allergy status to sulfonamides; Z88.8 Allergy status to other drugs, medicaments and biological substances

== ENCOUNTER → 2017-05-06 | Outpatient (CLI) | payer MEDICARE, BC ==
[~2017-05-06] MED LIST changes: +ASPI1TAB15 PO; +BUSP5TA PO; +GLUCTAB6 PO; +KRIL300C PO; +SERT25TA88 PO
--- NOTE | 2017-05-06 22:21 | ECGEPIP ---
Stationary ECG Study 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
== END ==
LOC: M EKG 10:27
PROVIDERS: ATTEND Nurse Practitioner Adult Health
DX: I77.9 Disorder of arteries and arterioles, unspecified (principal); I25.10 Atherosclerotic heart disease of native coronary artery without angina pectoris; R94.31 Abnormal electrocardiogram [ECG] [EKG]; R55 Syncope and collapse; R07.9 Chest pain, unspecified; I49.5 Sick sinus syndrome; I47.1 Supraventricular tachycardia; E78.00 Pure hypercholesterolemia, unspecified; E07.9 Disorder of thyroid, unspecified

== ENCOUNTER → 2017-05-06 | Outpatient (REF) | payer MEDICARE, BC ==
[2017-05-06 12:21] LABS: BASO % 0.6 % (0.0-1.0); EOS # 0.1 K/mm3 (0.0-0.50); EOS % 1.6 % (0.0-3.0); LYMPH # 0.6 K/mm3 (1.5-4.5); LYMPH % 12.1 % (24.0-44.0); MEAN CORPUSCULAR HEMOGLOBIN 31.2 pg (27.0-33.0); MEAN CORPUSCULAR HGB CONC 34.4 g/dl (32.0-36.5); MEAN CORPUSCULAR VOLUME 90.7 fl (80.0-96.0); MONO # 0.3 K/mm3 (0.0-0.8); MONO % 5.9 % (0.0-5.0); NEUTROPHILS # 3.8 K/mm3 (1.8-7.7); NEUTROPHILS % 78.2 % (36.0-66.0); RED CELL DISTRIBUTION WIDTH 12.5 % (11.5-14.5); WHITE BLOOD COUNT 4.9 K/mm3 (4.0-10.0)
[2017-05-06 12:44] LABS: ALBUMIN/GLOBULIN RATIO 1.43 (1.00-1.93); BILIRUBIN,TOTAL 0.4 MG/DL (0.2-1.0); CALCIUM LEVEL 9.6 MG/DL (8.8-10.2); CREATININE FOR GFR 0.96 MG/DL (0.55-1.02); FREE T4 1.01 NG/DL (0.76-1.46); GLOMERULAR FILTRATION RATE 59.1 (>32); POTASSIUM SERUM 4.5 MEQ/L (3.5-5.1); TOTAL PROTEIN 6.8 GM/DL (6.4-8.2)
== END ==
LOC: M LABDRAW1 10:21
PROVIDERS: ATTEND Nurse Practitioner Adult Health
DX: I47.1 Supraventricular tachycardia (principal); I49.5 Sick sinus syndrome; E78.00 Pure hypercholesterolemia, unspecified; E07.9 Disorder of thyroid, unspecified; I49.9 Cardiac arrhythmia, unspecified; R55 Syncope and collapse; R94.31 Abnormal electrocardiogram [ECG] [EKG]; Z51.81 Encounter for therapeutic drug level monitoring; Z79.899 Other long term (current) drug therapy; E55.9 Vitamin D deficiency, unspecified; I25.10 Atherosclerotic heart disease of native coronary artery without angina pectoris

== ENCOUNTER 2017-05-22 11:59 | Day surgery (SDC) | payer MEDICARE, BC ==
[~2017-05-22] VITALS: Ht 157.5 cm; Wt 61.2 kg
[~2017-05-22 11:59] MED LIST changes: +OFLOXACIN 0.3 % (OCUFLOX) OPTH SOL 5ML OS ONE; +PHENYLEPHRINE 2.5% OPHTH SOL 2ML OS ONE; +PROPARACAINE 0.5% OPHTH SOL 15ML OS ONE; +TROPICAMIDE 1% OPHTH SOLN 2ML OS ONE
[2017-05-22] MEDS ORDERED: DILUENT IV ONE ×2 (12:15→12:30)
[2017-05-22] MEDS ORDERED: MANNITOL IV ONE ×2 (12:15→12:30)
[2017-05-22] MEDS ORDERED: FILTER 1.2 MICRON EXT SET (ADULT TPN & MANNITOL) XX ONE (12:30)
[2017-05-22] MEDS ORDERED: fentaNYL 100 MCG/2 ML INJECTION (J3010) As Ordered ONE (13:01)
[2017-05-22] MEDS ORDERED: MIDAZOLAM INJ 2 MG/2 ML VIAL (J2250) As Ordered ONE (13:01)
[2017-05-22] MEDS ORDERED: POVIDONE-IODINE 5% OPHTH PREP SOL 30ML As Ordered ONE (13:10)
[2017-05-22] MEDS ORDERED: ACETYLCHOLINE OPHTH SOLN 1% 2ML (MIOCHOL-E) As Ordered ONE (13:10)
[2017-05-22] MEDS ORDERED: LIDOCAINE 0.75%/EPINEPHRINE 0.025% IN BSS 1ML SYR INTRACAMERAL (OR ONLY) As Ordered ONE (13:11)
[2017-05-22] MEDS ORDERED: CEFUROXIME 1MG/0.1ML INTRACAMERAL INJ As Ordered ONE (13:11)
[2017-05-22] MEDS ORDERED: DUOVISC (0.50ML VISCOAT/0.55ML PROVISC) OPHTH KIT As Ordered ONE (13:11)
[2017-05-22] MEDS ORDERED: BALANCED SALT IRRIGATION SOLUTION 500ML BAG (FOR OR EYE MACHINE) As Ordered ONE (13:11)
[2017-05-22 14:35] VITALS: BP 166/76
--- NOTE | 2017-05-23 09:25 | RO ---
DATE OF PROCEDURE: 05/22/2017 PREOPERATIVE DIAGNOSIS: Visually significant nuclear sclerotic cataract left eye. POSTOPERATIVE DIAGNOSIS: Visually significant nuclear sclerotic cataract left eye. PROCEDURE: Cataract extraction with use of phacoemulsification, and placement of intraocular lens, SN60WF, 30.0 diopter, left eye. SURGEON: Milad Holley DO DOVETAIL MACHINE OPERATOR: ANESTHESIA: Local with monitored anesthesia care (MAC). COMPLICATIONS: None. POSTOPERATIVE CONDITION: Stable. INDICATION FOR SURGERY: Blurred vision left eye affecting patient's activities of daily living. DESCRIPTION OF PROCEDURE: The patient was seen in the preoperative area and properly identified. The correct operative eye was identified and marked. Attention was turned to that eye. The patient received topical antibiotics in the preoperative area. The patient then received topical dilating drops consisting of Tropicamide and Phenylephrine. The patient was then transferred to the operating room. The correct side was re-identified. The patient received topical anesthetics and antibiotics on the surface of the eye. The eye was prepped and draped in a sterile fashion. The upper and lower eyelids were isolated with Tegaderm tape, and the lids were held open with an adjustable speculum. Using a sideport blade, a paracentesis incision was made. Intraocular preservative-free lidocaine was then injected into the anterior chamber. Viscoelastic was then injected into the anterior chamber through the paracentesis. Using a 2.4 mm sharp-tipped keratome, the anterior chamber was entered via a temporal clear corneal incision. A continuous curvilinear capsulorrhexis was created with the aid of a 26g cystotome and Utrata forceps. Hydrodissection was performed with balanced salt solution (BSS) on a blunt cannula until the nucleus was freely mobile. The crystalline lens was phacoemulsified and aspirated. Additional cohesive viscoelastic was placed into the capsular bag to deepen it. A SN60WF 30.0 diopter lens was placed into the capsular bag and confirmed by visualizing the continuous curvilinear capsulorrhexis. Additional irrigation and aspiration was used to remove cortical material and remaining viscoelastic. The clear corneal incision was hydrated with BSS on a blunt cannula. The lens was well positioned. The incisions were then tested for leaks and found to be negative. The eye was then palpated for appropriate pressure and adjusted accordingly with BSS. The eyelid speculum was carefully removed. A shield was placed. The patient tolerated the procedure well and was discharged to the recovery unit in a stable condition. LUIS
== END 2017-05-22 14:46 | disposition home or self-care (01) ==
LOC: M SDC 11:59
PROVIDERS: ATTEND Ophthalmology
DX: H25.12 Age-related nuclear cataract, left eye (principal); I10 Essential (primary) hypertension; E78.5 Hyperlipidemia, unspecified; E03.9 Hypothyroidism, unspecified; K21.9 Gastro-esophageal reflux disease without esophagitis; F32.9 Major depressive disorder, single episode, unspecified; F41.9 Anxiety disorder, unspecified; K57.32 Diverticulitis of large intestine without perforation or abscess without bleeding; Z88.0 Allergy status to penicillin; Z88.2 Allergy status to sulfonamides; Z88.8 Allergy status to other drugs, medicaments and biological substances; Z79.82 Long term (current) use of aspirin; Z79.899 Other long term (current) drug therapy
CPT/HCPCS: 66984; J2250; J3010; V2632

== ENCOUNTER 2017-06-12 09:55 | Day surgery (SDC) | payer MEDICARE, BC ==
[~2017-06-12] VITALS: Ht 154.9 cm; Wt 60.7 kg
[~2017-06-12 09:55] MED LIST changes: +ACETAMINOPHEN 325 MG TAB PO PRN; +OFLOXACIN 0.3 % (OCUFLOX) OPTH SOL 5ML OD ONE; -OFLOXACIN 0.3 % (OCUFLOX) OPTH SOL 5ML OS ONE; +PHENYLEPHRINE 2.5% OPHTH SOL 2ML OD ONE; -PHENYLEPHRINE 2.5% OPHTH SOL 2ML OS ONE; +PROPARACAINE 0.5% OPHTH SOL 15ML OD ONE; -PROPARACAINE 0.5% OPHTH SOL 15ML OS ONE; +TROPICAMIDE 1% OPHTH SOLN 2ML OD ONE; -TROPICAMIDE 1% OPHTH SOLN 2ML OS ONE
[2017-06-12] MEDS ORDERED: TRIMETHOBENZAMIDE 300 MG CAP PO PRN (10:15)
[2017-06-12] MEDS ORDERED: fentaNYL 100 MCG/2 ML INJECTION (J3010) As Ordered ONE (10:47)
[2017-06-12] MEDS ORDERED: MIDAZOLAM INJ 2 MG/2 ML VIAL (J2250) As Ordered ONE (10:48)
[2017-06-12] MEDS ORDERED: BALANCED SALT IRRIGATION SOL 500ML GLASS BOTTLE (FOR OR EYE COMPOUND) As Ordered ONE (11:03)
[2017-06-12] MEDS ORDERED: DUOVISC (0.50ML VISCOAT/0.55ML PROVISC) OPHTH KIT As Ordered ONE (11:03)
[2017-06-12] MEDS ORDERED: LIDOCAINE 0.75%/EPINEPHRINE 0.025% IN BSS 1ML SYR INTRACAMERAL (OR ONLY) As Ordered ONE (11:04)
[2017-06-12] MEDS ORDERED: ACETYLCHOLINE OPHTH SOLN 1% 2ML (MIOCHOL-E) As Ordered ONE (11:04)
[2017-06-12] MEDS ORDERED: POVIDONE-IODINE 5% OPHTH PREP SOL 30ML As Ordered ONE (11:08)
[2017-06-12] MEDS ORDERED: OFLOXACIN 0.3 % (OCUFLOX) OPTH SOL 5ML As Ordered ONE (11:15)
[2017-06-12 12:00] VITALS: BP 185/81
--- NOTE | 2017-06-16 18:37 | RO ---
DATE OF PROCEDURE: 06/12/2017 PREOPERATIVE DIAGNOSIS: Visually significant nuclear sclerotic cataract right eye. POSTOPERATIVE DIAGNOSIS: Visually significant nuclear sclerotic cataract right eye. PROCEDURE: Cataract extraction with use of phacoemulsification and placement of intraocular lens, AU00T0, 25.5, right eye. SURGEON: Milad Holley DO PLASTER PATTERNMAKER: ANESTHESIA: Local with monitored anesthesia care (MAC). COMPLICATIONS: None. POSTOPERATIVE CONDITION: Stable. INDICATION FOR SURGERY: Blurred vision right eye affecting patient's activities of daily living. DESCRIPTION OF PROCEDURE: The patient was seen in the preoperative area and properly identified. The correct operative eye was identified and marked. Attention was turned to that eye. The patient received topical antibiotics in the preoperative area. The patient then received topical dilating drops consisting of tropicamide and phenylephrine. The patient was then transferred to the operating room. The correct side was re-identified. The patient received topical anesthetics and antibiotics on the surface of the eye. The eye was prepped and draped in a sterile fashion. The upper and lower eyelids were isolated with Tegaderm tape, and the lids were held open with an adjustable speculum. Using a sideport blade, a paracentesis incision was made. Intraocular preservative-free lidocaine was then injected into the anterior chamber. Viscoelastic was then injected into the anterior chamber through the paracentesis. Using a 2.4 mm sharp-tipped keratome, the anterior chamber was entered via a temporal clear corneal incision. A continuous curvilinear capsulorrhexis was created with the aid of a 26-gauge cystotome and Utrata forceps. Hydrodissection was performed with balanced salt solution (BSS) on a blunt cannula until the nucleus was freely mobile. The crystalline lens was phacoemulsified and aspirated. Additional cohesive viscoelastic was placed into the capsular bag to deepen it. An AU00T0, 25.5 lens was placed into the capsular bag and confirmed by visualizing the continuous curvilinear capsulorrhexis. Additional irrigation and aspiration was used to remove cortical material and remaining viscoelastic. The clear corneal incision was hydrated with BSS on a blunt cannula. A small corneal abrasion was noted that was most likely secondary to patient squeezing excessively during the placement of the wire lid speculum. At that time, a collagen contact lens was placed over the cornea that was previously soaked in ofloxacin antibiotic drops. The wire lid speculum and Tegaderm were removed. A shield was placed. The patient was discharged to the post-anesthesia care unit (PACU) in stable condition. LUIS
== END 2017-06-12 12:05 | disposition home or self-care (01) ==
LOC: M SDC 09:55
PROVIDERS: ATTEND Ophthalmology
DX: H25.11 Age-related nuclear cataract, right eye (principal); I10 Essential (primary) hypertension; E78.5 Hyperlipidemia, unspecified; Z79.82 Long term (current) use of aspirin; Z79.899 Other long term (current) drug therapy; G47.30 Sleep apnea, unspecified; Z88.0 Allergy status to penicillin; Z88.2 Allergy status to sulfonamides; Z88.8 Allergy status to other drugs, medicaments and biological substances
CPT/HCPCS: 66984; J2250; J3010; V2632

== ENCOUNTER → 2018-01-06 | Outpatient (CLI) | payer MEDICARE, BC | LOC: M RAD 09:49 | DX: M25.561 Pain in right knee (principal); M25.562 Pain in left knee ==

== ENCOUNTER → 2018-01-19 | Outpatient (CLI) | payer MEDICARE, BC | LOC: M RAD 06:35 | DX: S00-T88 Injury, poisoning and certain other consequences of external causes (principal) | CPT/HCPCS: 93923 ==

== ENCOUNTER → 2018-02-02 | Outpatient (CLI) | payer MEDICARE, BC | LOC: M RAD 10:15 | DX: S72.002D Fracture of unspecified part of neck of left femur, subsequent encounter for closed fracture with routine healing (principal); X58.XXXD Exposure to other specified factors, subsequent encounter; Y92.9 Unspecified place or not applicable | CPT/HCPCS: 78315 ==

== ENCOUNTER → 2018-09-29 | Outpatient (REF) | payer MEDICARE, BC ==
[~2018-09-29] MED LIST changes: -ACETAMINOPHEN 325 MG TAB PO PRN; -CODCAP PO; +CODCAP4 PO; -GEMF600T PO; +GEMF600T5 PO; -OFLOXACIN 0.3 % (OCUFLOX) OPTH SOL 5ML OD ONE; -PHENYLEPHRINE 2.5% OPHTH SOL 2ML OD ONE; -PROPARACAINE 0.5% OPHTH SOL 15ML OD ONE; -TROPICAMIDE 1% OPHTH SOLN 2ML OD ONE
[2018-09-29 12:35] LABS: BASO % 0.9 % (0.0-1.0); EOS # 0.1 10^3/uL (0.0-0.50); EOS % 1.4 % (0.0-3.0); HEMOGLOBIN 10.9 g/dl (12.0-15.5); LYMPH # 0.6 10^3/uL (1.5-4.5); LYMPH % 13.6 % (24.0-44.0); MEAN CORPUSCULAR HEMOGLOBIN 31.2 pg (27.0-33.0); MEAN CORPUSCULAR VOLUME 94.6 fl (80.0-96.0); MONO # 0.3 10^3/uL (0.0-0.8); MONO % 7.8 % (0.0-5.0); NEUTROPHILS # 3.3 10^3/uL (1.8-7.7); NEUTROPHILS % 76.1 % (36.0-66.0); PLATELET COUNT, AUTOMATED 196 10^3/uL (150-450); RED BLOOD COUNT 3.49 10^6/uL (4.00-5.40); WHITE BLOOD COUNT 4.4 10^3/uL (4.0-10.0)
[2018-09-29 12:39] LABS: ALBUMIN 4.1 GM/DL (3.2-5.2); ALT/SGPT 16 U/L (12-78); BILIRUBIN,TOTAL 0.4 MG/DL (0.2-1.0); BLOOD UREA NITROGEN 22 MG/DL (7-18); CALCIUM LEVEL 10.1 MG/DL (8.8-10.2); CARBON DIOXIDE LEVEL 32 MEQ/L (21-32); CHLORIDE LEVEL 101 MEQ/L (98-107); CHOLESTEROL LEVEL 145 MG/DL (<200); CHOLESTEROL RISK RATIO 2.788 (<5); CREATININE FOR GFR 0.88 MG/DL (0.55-1.30); FREE T4 1.15 NG/DL (0.76-1.46); GLOMERULAR FILTRATION RATE > 60.0 (>32); GLUCOSE, FASTING 97 MG/DL (70-100); HDL CHOLESTEROL 52 MG/DL (>40); LDL CHOLESTEROL 74 MG/DL (<100); NON-HDL-C 93 MG/DL; POTASSIUM SERUM 4.2 MEQ/L (3.5-5.1); SODIUM LEVEL 138 MEQ/L (136-145); THYROID STIMULATING HORMONE 0.227 uIU/ML (0.358-3.740); TOTAL PROTEIN 6.5 GM/DL (6.4-8.2); TRIGLYCERIDES LEVEL 93 MG/DL (<150)
[2018-09-29 12:41] LABS: TOTAL 25(OH) VITAMIN D 44.3 NG/ML (30.0-100.0)
== END ==
LOC: M LABDRAW1 11:40
PROVIDERS: ATTEND Physician Assistant Medical
DX: R53.83 Other fatigue (principal); I10 Essential (primary) hypertension; E78.2 Mixed hyperlipidemia; E03.9 Hypothyroidism, unspecified

== ENCOUNTER 2018-11-27 11:32 | Emergency (ER) | payer MEDICARE, BC ==
[~2018-11-27] VITALS: Ht 160 cm; Wt 61.4 kg
[~2018-11-27 11:32] MED LIST changes: -ASPI1TAB PO; +ASPI81TA26 PO; -SENN1TAB2 PO; +SENN1TAB40 PO; +SERT-141 PO; -SERT50TA PO; +VITA100018 PO; -VITA100072 PO
--- NOTE | 2018-11-27 12:07 | REP ---
CT of the brain without IV contrast: There is right periorbital soft tissue edema. There is no subdural or epidural hematoma. There is no hemorrhage, edema, mass effect or midline shift. The ventricles are enlarged and the sulci are mildly enlarged compatible with diffuse volume loss. The cortical stripe is unremarkable. The visualized paranasal sinuses and mastoid air cells are clear. Impression: No subdural or epidural hematoma. No hemorrhage, mass effect or midline shift. Diffuse volume loss. No acute infarct. Electronically Signed by Pablito Bar MD 11/27/2018 11:59 A
--- NOTE | 2018-11-27 12:13 | REP ---
CT study of the cervical spine without contrast: History: Trauma. No comparison study. Technique: Helical scanning is acquired and overlapping 2 mm high resolution axial images were generated and reviewed at bone and soft tissue window settings. Coronal and sagittal multiplanar re-formations images are generated. CT findings: There is no evidence of cervical spine element fracture. No skull base fracture is seen. Cervical vertebral body heights are preserved. Alignment is normal. There is a levoconvex curvature in the cervical spine on coronal reformatted scans. There is fairly advanced osteoarthritic facet hypertrophy on the right and to a lesser extent on the left. The left C3-4 and C4-5 facet joints appear to be ankylosed. No bony destructive lesion is seen. No fracture or collapse is noted. No prevertebral soft tissue swelling is seen. No intraspinal abnormality. Mild vascular calcification is noted. There is no evidence of intraspinal or paraspinal hematoma. No extra vertebral abnormality is seen. Impression: Fairly advanced degenerative spondylosis changes. No traumatic abnormality noted. Otherwise negative CT study of the cervical spine without contrast. Electronically Signed by Yovany Mcfarland MD 11/27/2018 12:05 P
--- NOTE | 2018-11-27 12:23 | REP ---
MAXILLOFACIAL CT STUDY WITHOUT CONTRAST: HISTORY: Trauma. CT FINDINGS: There is a right pre-septal periorbital soft tissue swelling. No intraorbital hematoma is seen. No intraorbital abnormality is noted. Bony orbital margins are intact bilaterally. There is no evidence of orbital floor or medial wall orbital fracture. Zygomatic arches are intact bilaterally. No mandibular fracture is seen. There is some vascular calcification. No skull base fracture is noted. The nasal bone and inferior maxillary spine appear intact. IMPRESSION: There is right pre-septal periorbital soft tissue swelling. No fracture is seen. Otherwise negative. Electronically Signed by Yovany Mcfarland MD 11/27/2018 08:01 P
[2018-11-27 12:41] LABS: BASO % 0.6 % (0.0-1.0); EOS % 0.8 % (0.0-3.0); HEMATOCRIT 33.6 % (36.0-47.0); HEMOGLOBIN 11.4 g/dl (12.0-15.5); LYMPH # 0.7 10^3/uL (1.5-4.5); LYMPH % 15.4 % (24.0-44.0); MEAN CORPUSCULAR HEMOGLOBIN 30.8 pg (27.0-33.0); MEAN CORPUSCULAR HGB CONC 33.9 g/dl (32.0-36.5); MEAN CORPUSCULAR VOLUME 90.8 fl (80.0-96.0); MONO # 0.4 10^3/uL (0.0-0.8); MONO % 9.1 % (0.0-5.0); NEUTROPHILS # 3.6 10^3/uL (1.8-7.7); NEUTROPHILS % 73.9 % (36.0-66.0); PLATELET COUNT, AUTOMATED 160 10^3/uL (150-450); WHITE BLOOD COUNT 4.8 10^3/uL (4.0-10.0)
[2018-11-27 13:11] LABS: ALBUMIN 4.5 GM/DL (3.2-5.2); ALT/SGPT 16 U/L (12-78); BILIRUBIN,DIRECT 0.2 MG/DL (0.0-0.2); BILIRUBIN,TOTAL 0.5 MG/DL (0.2-1.0); BLOOD UREA NITROGEN 24 MG/DL (7-18); CALCIUM LEVEL 10.3 MG/DL (8.8-10.2); CARBON DIOXIDE LEVEL 22 MEQ/L (21-32); CHLORIDE LEVEL 104 MEQ/L (98-107); CPK CREATINE PHOSPHOKINASE 122 U/L (26-192); CREATININE FOR GFR 0.94 MG/DL (0.55-1.30); GLOMERULAR FILTRATION RATE > 60.0 (>32); GLUCOSE, FASTING 97 MG/DL (70-100); POTASSIUM SERUM 4.6 MEQ/L (3.5-5.1); SODIUM LEVEL 137 MEQ/L (136-145); THYROID STIMULATING HORMONE 0.585 uIU/ML (0.358-3.740); TROPONIN I < 0.02 NG/ML (< 0.10)
[2018-11-27] MEDS ORDERED: ONDANSETRON 4MG/2ML VIAL (J2405) IV ONE (13:30)
[2018-11-27 13:31] LABS: INR 0.98; PROTHROMBIN TIME 13.1 SECONDS (12.1-14.4)
[2018-11-27 13:32] LABS: PARTIAL THROMBOPLASTIN TIME 23.7 SECONDS (25.4-37.6)
[2018-11-27] MEDS ORDERED: NS 500 ML IV ONE (13:45)
[2018-11-27] MEDS ORDERED: CIPR-249 PO (15:11)
[2018-11-27 15:15] VITALS: BP 156/77
--- NOTE | 2018-11-27 21:58 | ECGEPIP ---
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
== END 2018-11-27 15:40 | disposition home or self-care (01) ==
LOC: M ED 11:32 → EDBD 11:32 → M ED 15:40
DX: S00.11XA Contusion of right eyelid and periocular area, initial encounter (principal); S06.0X0A Concussion without loss of consciousness, initial encounter; W18.39XA Other fall on same level, initial encounter; Y92.018 Other place in single-family (private) house as the place of occurrence of the external cause; N39.0 Urinary tract infection, site not specified; I10 Essential (primary) hypertension; E03.9 Hypothyroidism, unspecified; K21.9 Gastro-esophageal reflux disease without esophagitis; E78.5 Hyperlipidemia, unspecified; M51.9 Unspecified thoracic, thoracolumbar and lumbosacral intervertebral disc disorder
CPT/HCPCS: 70450; 70486; 72125; 80048; 80076; 81001; 82550; 82553; 84443; 84484; 85025; 85610; 85730; 87088; 87186; 93005; 93041; 94760; 96361; 96374; 97161; 99285; J2405

== ENCOUNTER 2019-04-01 20:52 | Emergency (ER) | payer MEDICARE, BC ==
[~2019-04-01] VITALS: Ht 160 cm; Wt 54.5 kg
[~2019-04-01 20:52] MED LIST changes: +CIPR-249 PO
[2019-04-01] MEDS ORDERED: COQ-100C5 PO (21:05)
[2019-04-01] MEDS ORDERED: TRAZ-163 PO (21:05)
[2019-04-01] MEDS ORDERED: CHILCHW27 PO (21:05)
[2019-04-01 21:47] LABS: BASO % 0.9 % (0.0-1.0); EOS # 0.1 10^3/uL (0.0-0.50); EOS % 1.7 % (0.0-3.0); HEMATOCRIT 30.6 % (36.0-47.0); LYMPH # 1.2 10^3/uL (1.5-4.5); LYMPH % 25.4 % (24.0-44.0); MEAN CORPUSCULAR HEMOGLOBIN 30.6 pg (27.0-33.0); MEAN CORPUSCULAR HGB CONC 32.7 g/dl (32.0-36.5); MEAN CORPUSCULAR VOLUME 93.6 fl (80.0-96.0); MONO # 0.5 10^3/uL (0.0-0.8); MONO % 9.7 % (0.0-5.0); NEUTROPHILS # 2.9 10^3/uL (1.8-7.7); NEUTROPHILS % 61.9 % (36.0-66.0); PLATELET COUNT, AUTOMATED 150 10^3/uL (150-450); RED BLOOD COUNT 3.27 10^6/uL (4.00-5.40); WHITE BLOOD COUNT 4.7 10^3/uL (4.0-10.0)
[2019-04-01 22:06] LABS: BLOOD UREA NITROGEN 23 MG/DL (7-18); CALCIUM LEVEL 8.8 MG/DL (8.8-10.2); CARBON DIOXIDE LEVEL 27 MEQ/L (21-32); CHLORIDE LEVEL 111 MEQ/L (98-107); CK-MB VALUE MASS 1.1 NG/ML (<3.6); CPK CREATINE PHOSPHOKINASE 65 U/L (26-192); CREATININE FOR GFR 0.96 MG/DL (0.55-1.30); FREE T4 1.19 NG/DL (0.76-1.46); GLOMERULAR FILTRATION RATE 58.9 (>32); GLUCOSE, FASTING 81 MG/DL (70-100); MB/CK RELATIVE INDEX 1.69 (< OR =4); POTASSIUM SERUM 3.4 MEQ/L (3.5-5.1); SODIUM LEVEL 144 MEQ/L (136-145); TROPONIN I < 0.02 NG/ML (< 0.10)
--- NOTE | 2019-04-01 22:41 | REPVR ---
EXAM: CT Head Without Contrast EXAM DATE/TIME: 04/01/2019 9:42 PM CLINICAL HISTORY: 83 years old, female; Syncope and collapse TECHNIQUE: Imaging protocol: Computed tomography images of the head without contrast. Radiation optimization: All CT scans at this facility use at least one of these dose optimization techniques: automated exposure control; mA and/or kV adjustment per patient size (includes targeted exams where dose is matched to clinical indication); or iterative reconstruction. COMPARISON: CT Head without contrast 11/27/2018 11:32 AM FINDINGS: Brain: No acute intracranial hemorrhage or mass effect. No discrete geographic area of hypoattenuation to suggest large vessel territorial infarct identified at this time. Mild to moderate generalized involutional and deep white matter microvascular ischemic changes. Ventricles: No ventriculomegaly. Bones/joints: No acute fracture. Sinuses: Visualized sinuses are unremarkable. No fluid levels. Mastoid air cells: Visualized mastoid air cells are well aerated. No mastoid effusion. Soft tissues: Unremarkable. IMPRESSION: No acute intracranial abnormality. Electronically signed by: German Benitez On 04/01/2019 22:40:59 PM
--- NOTE | 2019-04-01 22:45 | REPVR ---
EXAM: CT Cervical Spine Without Contrast EXAM DATE/TIME: 04/01/2019 9:42 PM CLINICAL HISTORY: 83 years old, female; Injury or trauma; Fall; Initial encounter; Blunt trauma; Other: Syncope TECHNIQUE: Imaging protocol: Computed tomography images of the cervical spine without contrast. Coronal and sagittal reformatted images were created and reviewed. Radiation optimization: All CT scans at this facility use at least one of these dose optimization techniques: automated exposure control; mA and/or kV adjustment per patient size (includes targeted exams where dose is matched to clinical indication); or iterative reconstruction. COMPARISON: CT Spine,cervical w/o contrast 11/27/2018 11:32 AM FINDINGS: Vertebrae: No grossly displaced fractures or subluxations. Grossly stable advanced multilevel degenerative changes characterized by varying degrees of disc space narrowing/desiccation, endplate osteophytosis and facet hypertrophy. Alignment is otherwise preserved. Discs/Spinal canal/Neural foramina: The bony spinal canal is grossly patent. Soft tissues: Unremarkable. Lungs: Lung apices are normal. IMPRESSION: No grossly displaced fractures or subluxations. Stable appearing multilevel degenerative changes. Electronically signed by: German Benitez On 04/01/2019 22:45:49 PM
[2019-04-02 00:22] VITALS: BP 186/77
[2019-04-02] MEDS ORDERED: TOPR25TA PO (00:24)
--- NOTE | 2019-04-02 07:19 | ECGEPIP ---
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
--- NOTE | 2019-04-02 09:03 | REP ---
Portable chest x-ray: Single view. History: Syncope. Comparison study: March 14, 2017. Findings: EKG monitoring electrodes overlie the chest. Heart is not felt to be enlarged. Lungs are well inflated and clear. Pulmonary vasculature is not increased. No significant bony abnormality. Impression: No active disease. Electronically Signed by Yovany Mcfarland MD 04/02/2019 08:55 A
== END 2019-04-02 00:51 | disposition home or self-care (01) ==
LOC: M ED 20:52
DX: R00.1 Bradycardia, unspecified (principal); I44.0 Atrioventricular block, first degree; K21.9 Gastro-esophageal reflux disease without esophagitis; I10 Essential (primary) hypertension; M51.9 Unspecified thoracic, thoracolumbar and lumbosacral intervertebral disc disorder; E78.5 Hyperlipidemia, unspecified; Z79.82 Long term (current) use of aspirin; Z79.899 Other long term (current) drug therapy; Z88.0 Allergy status to penicillin; Z88.2 Allergy status to sulfonamides; Z88.5 Allergy status to narcotic agent; Z88.8 Allergy status to other drugs, medicaments and biological substances; Z88.1 Allergy status to other antibiotic agents

== ENCOUNTER 2019-10-16 19:25 | Inpatient (IN) | payer MEDICARE, BC ==
[~2019-10-16] VITALS: Ht 160 cm; Wt 75.5 kg
[~2019-10-16 19:25] MED LIST changes: +CHILCHW27 PO; -CODCAP4 PO; +CODCAP5 PO; +COQ-100C5 PO; -IRBE300T10 PO; +IRBE300T7 PO; -OMEP40CA2 PO; +OMEP40CA97 PO; +SENN-53 PO; -SENN1TAB40 PO; +SERT25TA21 PO; -SERT25TA88 PO; +TOPR25TA PO; +TRAZ-257 PO
[2019-10-16 20:15] LABS: BASO # 0.1 10^3/uL (0.0-0.2); BASO % 0.6 % (0.0-1.0); EOS # 0.1 10^3/uL (0.0-0.5); EOS % 0.8 % (0.0-3.0); HEMATOCRIT 37.7 % (36.0-47.0); HEMOGLOBIN 12.9 g/dl (12.0-15.5); LYMPH % 12.4 % (24.0-44.0); MEAN CORPUSCULAR HEMOGLOBIN 30.7 pg (27.0-33.0); MEAN CORPUSCULAR HGB CONC 34.2 g/dl (32.0-36.5); MEAN CORPUSCULAR VOLUME 89.8 fl (80.0-96.0); MONO # 0.6 10^3/uL (0.0-0.8); MONO % 7.1 % (0.0-5.0); NEUTROPHILS # 6.2 10^3/uL (1.5-8.5); NEUTROPHILS % 78.6 % (36.0-66.0); PLATELET COUNT, AUTOMATED 183 10^3/uL (150-450); WHITE BLOOD COUNT 7.8 10^3/uL (4.0-10.0)
[2019-10-16] MEDS ORDERED: ROSU5TAB5 PO (20:29)
[2019-10-16 20:42] LABS: INFLUENZA A AMPLIFICATION NEGATIVE (NEGATIVE); INFLUENZA B AMPLIFICATION NEGATIVE (NEGATIVE)
[2019-10-16 20:51] LABS: BLOOD UREA NITROGEN 25 MG/DL (7-18); CALCIUM LEVEL 9.5 MG/DL (8.8-10.2); CARBON DIOXIDE LEVEL 27 MEQ/L (21-32); CHLORIDE LEVEL 99 MEQ/L (98-107); CK-MB VALUE MASS 1.6 NG/ML (<3.6); CPK CREATINE PHOSPHOKINASE 123 U/L (26-192); CREATININE FOR GFR 1.17 MG/DL (0.55-1.30); GLOMERULAR FILTRATION RATE 46.8 (>32); GLUCOSE, FASTING 119 MG/DL (70-100); MAGNESIUM LEVEL 2.3 MG/DL (1.8-2.4); POTASSIUM SERUM 4.1 MEQ/L (3.5-5.1); SODIUM LEVEL 134 MEQ/L (136-145); TROPONIN I < 0.02 NG/ML (< 0.10)
[2019-10-16] MEDS: DOCUSATE SODIUM 100 MG CAP PO SCH (21:00)
--- NOTE | 2019-10-16 21:08 | REPVR ---
PROCEDURE INFORMATION: Exam: CT Head Without Contrast Exam date and time: 10/16/2019 8:29 PM Age: 84 years old Clinical indication: Syncope and collapse TECHNIQUE: Imaging protocol: Computed tomography of the head without contrast. Radiation optimization: All CT scans at this facility use at least one of these dose optimization techniques: automated exposure control; mA and/or kV adjustment per patient size (includes targeted exams where dose is matched to clinical indication); or iterative reconstruction. COMPARISON: CT Head without contrast 04/01/2019 9:39 PM FINDINGS: Brain: There is moderate patchy cerebral white matter hypodensity, likely representing small vessel ischemic disease in a patient this age. The acuity of the white matter disease is indeterminate. The white-gillespie differentiation is preserved demonstrating no acute territorial type infarct. No acute intracranial hemorrhage is visualized. Midline shift: There is no midline shift. Ventricles: There is mild prominence of the ventricles and sulci, compatible with atrophy. Bones/joints: The calvarium demonstrates no evidence for a depressed fracture. Hyperostosis frontalis interna. Sinuses: Visualized sinuses are unremarkable. No fluid levels. Mastoid air cells: No mastoid effusion. Orbits: A right orbital lens implant is visualized. Soft tissues: Unremarkable. Vasculature: Intracranial atherosclerosis visualized. IMPRESSION: 1. No acute intracranial hemorrhage or acute territorial type infarct. 2. There is moderate patchy cerebral white matter hypodensity, likely representing small vessel ischemic disease in a patient this age. 3. Mild stable atrophy. Electronically signed by: Nolan Davis On 10/16/2019 21:07:55 PM
[2019-10-16 21:18] LABS: PROTHROMBIN TIME > 150.0 SECONDS (11.8-14.0)
[2019-10-16 21:21] LABS: PARTIAL THROMBOPLASTIN TIME > 240.0 SECONDS (25.0-38.4)
[2019-10-16 22:02] LABS: INR 1.06; PARTIAL THROMBOPLASTIN TIME 25.4 SECONDS (25.0-38.4); PROTHROMBIN TIME 13.5 SECONDS (11.8-14.0)
--- NOTE | 2019-10-16 22:16 | HPEPDOC ---
[facility] Medical History & Physical Date of Admission Oct 16, 2019 Date of Service: Oct 16, 2019 Primary Care Physician: Bonnie Chamorro Attending Physician: LUZ MARIA DUKE MD History and Physical TIME OF SERVICE: 10:50 AM CHIEF COMPLAINT: Loss of consciousness HISTORY OF PRESENT ILLNESS: The patient is a poor historian the majority of the history is obtained from the ER staff. This is an 84-year-old female who presented to the hospital for evaluation after having a syncopal episode after having a bowel movement. The patient denies having prodromal shortness of breath, palpitations, chest pain, fever, or chills. She denies missing any doses of her medications recently and ate breakfast and lunch prior to coming to the ER. According to the ER, RN the patient was initially weak, shaky and anxious on arrival. REVIEW OF SYSTEMS: 12 point review of systems negative except as listed in HPI PAST MEDICAL/ SURGICAL HISTORY: Chronic hypertension Hypothyroidism Dyslipidemia. Small vessel ischemic disease. B12 deficiency. Lumbar sacral spondylosis. She denies having CAD, CVA or DM SOCIAL HISTORY: She does not smoke. She lives with her . Her daughter lives with them FAMILY HISTORY: She denies having a family history of CAD ALLERGIES: Please see below. HOME MEDICATIONS: Please see below. PHYSICAL EXAMINATION: Vital Signs Date Time Temp Pulse Resp B/P (MAP) Pulse Ox O2 Delivery O2 Flow Rate FiO2 10/16/19 19:30 97.4 87 22 214/97 97 Room Air GEN: well-nourished / well developed/ NAD INTEGUMENT: not flushed/ not jaundice HEENT: NCAT / lips acyanotic /mucus membranes moist and pink CVS: RRR/NMRG/ radial pulses intact / no lower extremity edema LUNGS: able to speak full sentences without stopping to take a breath / clear to auscultation bilaterally on room air ABDOMEN: Contour (flat) / soft & not tender with palpation MSK/EXTREMITIES: range of motion intact in all 4 extremities NEURO: speech is not dysarthric / strength is 5/5 at upper extremities and 4/5 and lower extremities PSYCH: alert and oriented / able to understand and follow all commands LABORATORY DATA: IMAGING: CT head " IMPRESSION: 1. No acute intracranial hemorrhage or acute territorial type infarct. 2. There is moderate patchy cerebral white matter hypodensity, likely representing small vessel ischemic disease in a patient this age. 3. Mild stable atrophy. " Chest x-ray appears unremarkable but the final read is pending MICROBIOLOGY: Please see below. ASSESSMENT: Ms. Eli is an 84-year-old with a past medical history of HTN, small vessel ischemic disease, B12 deficiency, GERD, hypothyroidism, and dyslipidemia who is admitted for evaluation of syncope. PLAN: 1. Syncope It is currently unclear if this is cardiogenic vasovagal or neurogenic in nature. EKG showed first-degree AV block The troponin was unremarkable CT of the head showed small vessel ischemic disease Plan: Admit to medical floor/Telemetry / f/u orthostats /pending CTA head and neck, the daytime team and consider ordering MRI of the brain and/or echo / trend troponins/follow up BMP/fall precautions/ 2. Uncontrolled HTN - Plan: c/w Irbesartan & add amlodipine / stop Ibuprofen 3. BLE weakness - Plan: PT eval to determine if she is a candidate for home PT and or cane 4. Small vessel ischemic disease likely 2/2 uncontrolled HTN - Plan: control BP c/w ASA and rosuvastatin 5. Hypothyroidism - Plan: c/w Levothyroxine 6. Dyslipidemia - Plan: rosuvastatin DVT PROPHYLAXIS: Lovenox DISPOSITION: Home after more than 2 midnight's stay Home Medications Scheduled Acetaminophen (Acetaminophen) 325 Mg Tablet, 325 MG PO BID TAKES AT NOON AND HS Bupropion HCl (Wellbutrin Xl) 150 Mg Tab, 150 MG PO QHS Ergocalciferol (Vitamin D2) (Vitamin D2) 400 Unit Tablet, 400 UNIT PO DAILY Ibuprofen (Advil) 100 Mg Tablet, 200 MG PO BID Irbesartan (Irbesartan) 150 Mg Tablet, 150 MG PO QHS Levothyroxine Sodium (Levothyroxine Sodium) 112 Mcg Tab, 112 MCG PO QAM Magnesium (Magnesium) 250 Mg Tablet, 250 MG PO DAILY Mirtazapine (Mirtazapine) 7.5 Mg Tablet, 7.5 MG PO QHS Omeprazole (Omeprazole) 40 Mg Cap, 40 MG PO QHS Rosuvastatin Calcium (Rosuvastatin Calcium) 5 Mg Tablet, 5 MG PO DAILY Sertraline Hcl (Sertraline HCl) 50 Mg Tablet, 75 MG PO DAILY Ubidecarenone (Coq-10) 100 Mg Capsule, 100 MG PO DAILY Miscellaneous Medications Multivitamin with Iron (Children's Vitamins with Iron) 1 Each Tab.chew, 1 CHW PO Allergies Coded Allergies: Penicillins (Verified Allergy, Unknown, 04/01/19) Sulfa (Sulfonamide Antibiotics) (Verified Allergy, Unknown, 04/01/19) tetracycline (Verified Allergy, Unknown, 04/01/19) hydrocodone (Verified Adverse Reaction, Intermediate, hallucinations, 04/01/19) magnesium sulfate (Verified Adverse Reaction, Mild, vomiting, 04/01/19) A-FIB/CHADSVASC A-FIB History Current/History of A-Fib/PAF?: No Current PO Anticoag Therapy: No LUZ MARIA DUKE MD Oct 16, 2019 22:16
[2019-10-16] MEDS ORDERED: ISOVUE-370 76% 100ML VIAL (Q9967) As Ordered ONE (22:33)
[2019-10-16 22:42] LABS: NT-PRO BNP 242 PG/ML (<450)
[2019-10-16] MEDS ORDERED: HM M250T PO (22:52)
[2019-10-16] MEDS ORDERED: VITA400T15 PO (22:52)
[2019-10-16] MEDS ORDERED: ACET1TAB55 PO (22:56)
[2019-10-16] MEDS ORDERED: ADVI100T PO (22:56)
[2019-10-16] MEDS ORDERED: IRBE150T7 PO (23:12)
[2019-10-16] MEDS ORDERED: SERT-141 PO (23:12)
[2019-10-16] MEDS ORDERED: MIRT1TAB PO (23:12)
--- NOTE | 2019-10-16 23:25 | REPVR ---
PROCEDURE INFORMATION: Exam: CT Angiography Neck With Contrast Exam date and time: 10/16/2019 10:49 PM Age: 84 years old Clinical indication: Syncope and collapse TECHNIQUE: Imaging protocol: Computed tomography angiography of the neck with intravenous contrast. 3D rendering: MIP and/or 3D reconstructed images were created by the technologist. Radiation optimization: All CT scans at this facility use at least one of these dose optimization techniques: automated exposure control; mA and/or kV adjustment per patient size (includes targeted exams where dose is matched to clinical indication); or iterative reconstruction. Contrast material: ISOVUE 370; Contrast volume: 100 ml; Contrast route: IV; COMPARISON: No relevant prior studies available. FINDINGS: VASCULATURE: Right common carotid artery: No significant stenosis. No dissection or occlusion. Right internal carotid artery: Mild atherosclerosis of the proximal right internal carotid artery, without stenosis using NASCET criteria. Irregular contour of the mid internal carotid artery, suggestive of fibromuscular dysplasia. Right external carotid artery: No occlusion or significant stenosis. Right vertebral artery: No significant stenosis. No dissection or occlusion. Left common carotid artery: No significant stenosis. No dissection or occlusion. Left internal carotid artery: Increased tortuosity of the left internal carotid artery. Mild atherosclerosis of the proximal left internal carotid artery, without stenosis using NASCET criteria. Irregular contour of the mid internal carotid artery, suggestive of fibromuscular dysplasia. Left external carotid artery: No occlusion or significant stenosis. Left vertebral artery: No significant stenosis. No dissection or occlusion. Subclavian arteries: Venous enhancement and artifact limit evaluation of the right subclavian artery. Atherosclerosis and mild stenosis of the proximal left subclavian artery. NECK: Hypopharynx: There is near effacement of the right pyriform sinus. Thyroid: Nonspecific hypodensity of the thyroid gland. Bones/joints: Spondylosis visualized within the cervical and upper thoracic spine. Grade 1 anterolisthesis of C4 on C5 and C7 on T1. Slight anterolisthesis of C5 on C6. Soft tissues: No significant soft tissue swelling. IMPRESSION: 1. There is irregular contour of the bilateral mid internal carotid arteries, suggestive of fibromuscular dysplasia. 2. Atherosclerosis and mild stenosis of the proximal left subclavian artery. 3. There is near effacement of the right pyriform sinus. Clinical correlation is recommended. 4. Additional findings described above. COMMENTS: 1. Using NASCET method for measuring degree of carotid artery stenosis: Mild is less than 50% stenosis. Moderate is 50-69% stenosis. Severe is 70-94% stenosis. Near occlusion is 95-99% stenosis. 2. Consistent with the [employer]'s Incidental Findings Committee white paper (J Am Carlos Alberto Radiol 2015): In patients aged 35 years and older with an incidental thyroid nodule equal to or greater than 1.[address], MRI or extrathyroidal US, further evaluation with dedicated thyroid US is recommended for patients with normal life expectancy and without comorbidities. For smaller nodules without suspicious features, no further evaluation or follow up is recommended. Electronically signed by: Nolan Davis On 10/16/2019 23:25:21 PM
[2019-10-16 23:30] VITALS: BP 141/74
--- NOTE | 2019-10-16 23:33 | REPVR ---
PROCEDURE INFORMATION: Exam: CT Angiography Head With Contrast Exam date and time: 10/16/2019 10:49 PM Age: 84 years old Clinical indication: Syncope and collapse TECHNIQUE: Imaging protocol: Computed tomography angiography of the head with intravenous contrast. 3D rendering: MIP and/or 3D reconstructed images were created by the technologist. Radiation optimization: All CT scans at this facility use at least one of these dose optimization techniques: automated exposure control; mA and/or kV adjustment per patient size (includes targeted exams where dose is matched to clinical indication); or iterative reconstruction. Contrast material: ISOVUE 370; Contrast volume: 100 ml; Contrast route: IV; COMPARISON: CT Head without contrast 10/16/2019 8:25 PM FINDINGS: Right internal carotid artery: Intracranial segment is patent with no significant stenosis. No aneurysm. Right anterior cerebral artery: No occlusion or significant stenosis. No aneurysm. Right middle cerebral artery: No occlusion or significant stenosis. No aneurysm. Right posterior cerebral artery: No occlusion or significant stenosis. No aneurysm. Right vertebral artery: No occlusion or significant stenosis. No aneurysm. Left internal carotid artery: Minimal atherosclerosis of the left internal carotid artery, without significant stenosis or occlusion. No aneurysm. Left anterior cerebral artery: No occlusion or significant stenosis. No aneurysm. Left middle cerebral artery: No occlusion or significant stenosis. No aneurysm. Left posterior cerebral artery: Persistence of the origin of the left posterior cerebral artery. 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 No significant stenosis or occlusion of the remaining left SUBGRADE TESTER. No aneurysm. Left vertebral artery: No occlusion or significant stenosis. No aneurysm. Basilar artery: No occlusion or significant stenosis. No aneurysm. IMPRESSION: 1. No significant arterial stenosis or occlusion on this CTA head. 2. Additional findings described above. Electronically signed by: Nolan Davis On 10/16/2019 23:32:49 PM
[2019-10-17] MEDS: MIRTAZAPINE 7.5MG PER 1/2 TABLET PO SCH ×2 (00:15→20:28)
[2019-10-17] MEDS: OMEPRAZOLE 20 MG CAP PO SCH ×2 (01:22→20:27)
[2019-10-17] MEDS: buPROPion **XL** TABLET 150MG (WELLBUTRIN XL) PO SCH ×2 (01:22→20:27)
[2019-10-17] MEDS: IRBESARTAN 150 MG TAB PO SCH ×2 (01:24→20:28)
[2019-10-17 01:39] VITALS: BP_SYST 157; BP_SYST 170; BP_SYST 172; BP_DIAS 67; BP_DIAS 77; BP_DIAS 82
[2019-10-17 04:00] VITALS: BP_SYST 142; BP_SYST 144; BP_SYST 149; BP_DIAS 73; BP_DIAS 81; BP_DIAS 85
[2019-10-17] MEDS: ACETAMINOPHEN TAB 650MG DOSE (2X325MG) PO PRN ×2 (07:51→20:28)
[2019-10-17 08:00] VITALS: BP_SYST 153; BP_SYST 174; BP_SYST 181; BP_DIAS 83; BP_DIAS 84; BP_DIAS 88
[2019-10-17] MEDS ORDERED: NS 1,000 ML IV SCH (09:30)
[2019-10-17] MEDS: LEVOTHYROXINE 112MCG TABLET (0.112MG) PO SCH (09:52)
[2019-10-17] MEDS: ROSUVASTATIN 10 MG TAB (CRESTOR) PO SCH (09:52)
[2019-10-17] MEDS: VITAMIN D (CHOLECALCIFEROL) 400 INTERNATIONAL UNITS TAB PO SCH (09:52)
[2019-10-17] MEDS: DOCUSATE SODIUM 100 MG CAP PO SCH ×2 (09:53→20:27)
[2019-10-17] MEDS: SERTRALINE HCL 50 MG TAB PO SCH (09:53)
[2019-10-17] MEDS: ENOXAPARIN 30 MG/0.3 ML SYR (J1650) SC SCH (09:54)
[2019-10-17 10:00] LABS: BASO % 0.5 % (0.0-1.0); EOS % 0.7 % (0.0-3.0); HEMATOCRIT 35.4 % (36.0-47.0); HEMOGLOBIN 11.9 g/dl (12.0-15.5); LYMPH # 0.6 10^3/uL (1.5-5.0); LYMPH % 10.9 % (24.0-44.0); MEAN CORPUSCULAR HEMOGLOBIN 30.4 pg (27.0-33.0); MEAN CORPUSCULAR HGB CONC 33.6 g/dl (32.0-36.5); MEAN CORPUSCULAR VOLUME 90.5 fl (80.0-96.0); MONO # 0.5 10^3/uL (0.0-0.8); NEUTROPHILS # 4.5 10^3/uL (1.5-8.5); NEUTROPHILS % 79.5 % (36.0-66.0); PLATELET COUNT, AUTOMATED 172 10^3/uL (150-450); RED BLOOD COUNT 3.91 10^6/uL (4.00-5.40); WHITE BLOOD COUNT 5.6 10^3/uL (4.0-10.0)
[2019-10-17 10:23] LABS: CALCIUM LEVEL 9.1 MG/DL (8.8-10.2); CREATININE FOR GFR 1.04 MG/DL (0.55-1.30); GLOMERULAR FILTRATION RATE 53.6 (>32); MAGNESIUM LEVEL 2.3 MG/DL (1.8-2.4)
--- NOTE | 2019-10-17 10:28 | REP ---
CHEST, SINGLE VIEW: Single view of the chest is performed. There is no acute infiltrate. Heart is normal in size. There is some tortuosity of the thoracic aorta. The mediastinal silhouette is unchanged. There are degenerative changes of the spine. IMPRESSION: No active pulmonary disease. Electronically Signed by Pablito Phan MD 10/17/2019 06:33 P
--- NOTE | 2019-10-17 11:26 | IPNPDOC ---
Text Note Date of Service The patient was seen on 10/17/19. NOTE Subjective: Patient is an 84-year-old female with a PMHx HTN, DLP, Hypothyroidism, B12 deficiency, Lumbar Sacral spondylosis who presented to the emergency room after she had passed out at home while having a bowel movement. Patient reports that her daughter is usually home taking care of her. However, she was there at the the event. Patient reported that she was anxious. The patient denies having prodromal shortness of breath, palpitations, chest pain, fever, or chills. She denies missing any doses of her medications recently and ate breakfast and lunch prior to coming to the ER. According to the ER, RN the patient was initially weak, shaky and anxious on arrival. Upon arrival to emergency room, patient was found to have a significantly elevated blood pressure with systolics greater than 200. Patient was admitted to hospital service for further evaluation and treatment. Patient was seen and examined at the bedside. Currently, patient was that she's experiencing a mild headache. She denies any nausea, vomiting, chest pain, shortness breath, palpitations, cough, abdominal pain, diarrhea, or urinary discomfort. Patient is already work with physical therapy today and has been functioning well; they've reported that she is at her baseline level of activity currently. Objective: Vitals (See below) General: Lying in bed, no acute distress, comfortable, AAOx3 HEENT: NC, AT CVS: +S1S2 Lungs: Fair air entry b/l, -w/r/r Abdomen: Soft, ND, NT Extremities: - Edema, - Calf tenderness Assessment and plan: Syncope - likely 2/2 vasovagal episode, possibly 2/2 HTN - Patient reported that she was anxious at the time of the event and was on the toilet - Denies having prodromal shortness of breath, palpitations, chest pain, fever, or chills - CT head : 1. No acute intracranial hemorrhage or acute territorial type infarct. 2. There is moderate patchy cerebral white matter hypodensity, likely representing small vessel ischemic disease in a patient this age. 3. Mild stable atrophy. - CTA Neck : 1. There is irregular contour of the bilateral mid internal carotid arteries, suggestive of fibromuscular dysplasia. 2. Atherosclerosis and mild stenosis of the proximal left subclavian artery. 3. There is near effacement of the right pyriform sinus. Clinical correlation is recommended. 4. Additional findings described above. - CTA Chest : 1. No significant arterial stenosis or occlusion on this CTA head. 2. Additional findings described above. - CXR : No active pulmonary disease. - Will check MRI brain - c/w ASA and Rosuvastatin - Will optimize BP control (See below) - c/w PT and OT Hypertensive urgency - possibly 2/2 non-comliance, possibly 2/2 anxiety, possi louis 2/2 NSAID use - Presented to the ER with significantly elevated BP (SBPs >200) - Reported mild headache - Imaging noted above - s/p NSAIDs - Will c/w Irbesartan from outpatient setting; Have added Amlodipine in the morning DLP - c/w Rosuvastatin Hypothyroidism - c/w Levothyroxine GI prophylaxis - c/w DVT prophylaxis - c/w Lovenox Disposition: - Anticipate DC tomorrow VS,Anatoly, I+O VS, Daxe, I+O Laboratory Tests 10/16/19 19:59 10/16/19 20:11 10/17/19 09:38 Vital Signs Date Time Temp Pulse Resp B/P (MAP) Pulse Ox O2 Delivery O2 Flow Rate FiO2 10/17/19 09:53 78 153/88 10/17/19 04:00 98.8 17 96 Room Air I&O- Last 24 Hours up to 6 AM 10/17/19 06:00 Intake Total 150 ml Output Total 600 ml Balance -450 ml DI SOLARES MD Oct 17, 2019 11:26
[2019-10-17] MEDS: ACYCLOVIR 200 MG CAPSULE PO SCH ×3 (11:44→20:27)
[2019-10-17 12:00] VITALS: BP_SYST 165; BP_SYST 189; BP_SYST 191; BP_DIAS 77; BP_DIAS 86; BP_DIAS 87
--- NOTE | 2019-10-17 12:14 | REPVR ---
PROCEDURE INFORMATION: Exam: MR Head Without Contrast Exam date and time: 10/17/2019 10:51 AM Age: 84 years old Clinical indication: Syncope and collapse; Patient HX: PT states frequent falls and syncopal episodes, nki, no prior mris TECHNIQUE: Imaging protocol: MR of the head without contrast. COMPARISON: CT Head without contrast 10/16/2019 8:25 PM FINDINGS: Brain: There is hyperintense signal in the white matter consistent with chronic microvascular disease. DWI image 25 demonstrates a 5 mm focus of restricted diffusion in the right frontal white matter. This is consistent with an acute to subacute lacunar infarct, confirmed on ADC. No cortical infarct. Gradient echo images demonstrate no evidence of hemorrhage. There is no extra-axial collection. There is no mass. There are no abnormal flow voids. Ventricles: There is no hydrocephalus. Bones/joints: Unremarkable. Soft tissues: Unremarkable. Sinuses: Normal as visualized. No acute sinusitis. Mastoid air cells: Normal as visualized. No mastoid effusion. Orbits: Unremarkable. IMPRESSION: 1. There is chronic microvascular disease. 2. 5 mm acute to subacute right frontal white matter lacunar infarct. Electronically signed by: Dennis Lepe On 10/17/2019 12:14:23 PM
[2019-10-17] MEDS ORDERED: ASPIRIN 325 MG TAB PO ONE (12:45)
--- NOTE | 2019-10-17 14:00 | REPVR ---
PROCEDURE INFORMATION: Exam: MR Angiogram Head Without Contrast, Arteries Exam date and time: 10/17/2019 1:05 PM Age: 84 years old Clinical indication: Syncope and collapse; Patient HX: PT states frequent falls and syncopal episodes, nki, mri brain on pacs from 1 hour ago, ; additional info: R frontal stroke TECHNIQUE: Imaging protocol: MR angiogram head without contrast. Exam focused on the arteries. 3D rendering: MIP and/or 3D reconstructed images were created by the technologist. COMPARISON: MRI-Brain without Contrast 10/17/2019 10:[address] ANGIO HEAD 10/16/2019 10:47:38 PM FINDINGS: Right internal carotid artery: Unremarkable. Intracranial segment is patent with no significant stenosis. No aneurysm. Right anterior cerebral artery: Unremarkable. No occlusion or significant stenosis. No aneurysm. Right middle cerebral artery: Unremarkable. No occlusion or significant stenosis. No aneurysm. Right posterior cerebral artery: Unremarkable. No occlusion or significant stenosis. No aneurysm. Right vertebral artery: Unremarkable. No occlusion or significant stenosis. No aneurysm. Left internal carotid artery: Unremarkable. Intracranial segment is patent with no significant stenosis. No aneurysm. Left anterior cerebral artery: Unremarkable. No occlusion or significant stenosis. No aneurysm. Left middle cerebral artery: Unremarkable. No occlusion or significant stenosis. No aneurysm. Left posterior cerebral artery: Unremarkable. No occlusion or significant stenosis. No aneurysm. Left vertebral artery: Unremarkable. No occlusion or significant stenosis. No aneurysm. Basilar artery: Unremarkable. No occlusion or significant stenosis. No aneurysm. IMPRESSION: No major proximal vessel branch occlusion seen. Electronically signed by: Shu Pittman On 10/17/2019 14:00:13 PM
[2019-10-17 14:46] LABS: CK-MB VALUE MASS 1.6 NG/ML (<3.6); CPK CREATINE PHOSPHOKINASE 181 U/L (26-192); MB/CK RELATIVE INDEX 0.88 (< OR =4); TROPONIN I < 0.02 NG/ML (< 0.10)
[2019-10-17 16:00] VITALS: BP 150/72
[2019-10-17] MEDS ORDERED: amLODIPine 5 MG TAB PO ONE (16:00)
[2019-10-17] MEDS ORDERED: SLF 3 ML SYR IV PRN (16:15)
[2019-10-17 20:00] VITALS: BP 150/72
[2019-10-17] MEDS: SLF 3 ML SYR IV SCH (20:28)
--- NOTE | 2019-10-17 20:29 | ECGEPIP ---
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
[2019-10-18] VITALS: BP 150/70
[2019-10-18 04:00] VITALS: BP 141/74
[2019-10-18] MEDS: SLF 3 ML SYR IV SCH ×2 (06:03→12:44)
[2019-10-18 08:00] VITALS: BP 157/87
[2019-10-18] MEDS: DOCUSATE SODIUM 100 MG CAP PO SCH (08:05)
[2019-10-18] MEDS: ACYCLOVIR 200 MG CAPSULE PO SCH (08:05)
[2019-10-18] MEDS: ROSUVASTATIN 10 MG TAB (CRESTOR) PO SCH (08:05)
[2019-10-18] MEDS: LEVOTHYROXINE 112MCG TABLET (0.112MG) PO SCH (08:05)
[2019-10-18] MEDS: VITAMIN D (CHOLECALCIFEROL) 400 INTERNATIONAL UNITS TAB PO SCH (08:05)
[2019-10-18 08:06] VITALS: BP 157/87
[2019-10-18] MEDS: ENOXAPARIN 30 MG/0.3 ML SYR (J1650) SC SCH (08:06)
[2019-10-18] MEDS: ACETAMINOPHEN TAB 650MG DOSE (2X325MG) PO PRN (08:06)
[2019-10-18] MEDS: SERTRALINE HCL 50 MG TAB PO SCH (08:06)
[2019-10-18] MEDS ORDERED: ASPIRIN 81 MG ENTERIC TAB PO SCH (09:00)
[2019-10-18 09:48] LABS: HEMATOCRIT 37.4 % (36.0-47.0); HEMOGLOBIN 11.7 g/dl (12.0-15.5); MEAN CORPUSCULAR HEMOGLOBIN 30.5 pg (27.0-33.0); MEAN CORPUSCULAR HGB CONC 31.3 g/dl (32.0-36.5); MEAN CORPUSCULAR VOLUME 97.7 fl (80.0-96.0); PLATELET COUNT, AUTOMATED 147 10^3/uL (150-450); RED BLOOD COUNT 3.83 10^6/uL (4.00-5.40)
[2019-10-18 10:13] LABS: CREATININE FOR GFR 0.98 MG/DL (0.55-1.30); GLOMERULAR FILTRATION RATE 57.4 (>32); POTASSIUM SERUM 4.4 MEQ/L (3.5-5.1)
[2019-10-18 10:30] VITALS: BP_SYST 127; BP_SYST 139; BP_SYST 156; BP_DIAS 66; BP_DIAS 72; BP_DIAS 74
--- NOTE | 2019-10-18 10:32 | CR ---
DATE OF CONSULTATION: 10/18/2019 REFERRING PROVIDER: Dr. Alex Benitez REASON FOR CONSULTATION: Acute versus subacute stroke. HISTORY OF PRESENT ILLNESS: The patient is an 84-year-old female with past medical history significant for past episodes of syncope. The patient had an episode where she collapsed and fainted while having a bowel movement on the toilet. The patient ended up coming out of it without any postictal phase. The patient was brought to the hospital. She was quite tremulous, anxious and shaky. Head CT initially was negative. MRI of the brain revealed acute versus subacute small right 5 mm focus of frontal lobe ischemia. The patient does not have any deficits from the stroke. She was placed on aspirin. She will remain on 81 mg aspirin daily. The patient also uses Crestor 5 mg daily. During the hospitalization, she will have an echocardiogram and carotid ultrasound. MR angiography was completed of the head which revealed mid intracranial artery, possible fibromuscular dysplasia. The patient does not have any prior history of strokes. PAST MEDICAL HISTORY: Chronic hypertension, hypothyroidism, dyslipidemia, small vessel ischemic disease of brain, B12 deficiency, lumbosacral spondylosis, recurring episodes of syncope. SOCIAL HISTORY: The patient denies use of any tobacco, alcohol or illicit drugs. FAMILY HISTORY: Noncontributory. ALLERGIES: SULFA, PENICILLIN, TETRACYCLINE, HYDROCODONE, MAGNESIUM. HOME MEDICATIONS: Acetaminophen, buproprion, ergoclciferol, ibuprofen, irbesartan, levothyroxine, mirtazapine, omeprazole, rosuvastatin, sertraline, Coenzyme Q10, multivitamin. PHYSICAL EXAMINATION: Blood pressure is 157/87, pulse rate 63, respiratory rate is 18, temperature is 98.1 degrees Fahrenheit, oxygenation 99% on room air. The patient is awake, alert, oriented to person, place and time. Speech, language, comprehension and repetition are intact. Pupils are 2.5 mm, round, reactive to light - both are postsurgical. Sensation V1, V2, and V3 is intact to light touch. No facial asymmetry to activation. Palate elevates symmetrically. Tongue is midline. No weakness of sternocleidomastoids bilaterally. Hearing is subjectively present to finger rub. There is no pronator drift. Strength is 5/5 including bilateral deltoids, biceps, iliopsoas, quadriceps, anterior tibialis. Deep tendon reflexes are reduced in the lower extremities and 2s in the upper extremities. Sensory is intact to light touch in all four extremities. Coordination: Normal [id number] without any signs of gross ataxia or dysmetria. Romberg testing is negative. ASSESSMENT: Incidental acute versus subacute small cerebral infarction in the right frontal lobe in the setting of hypertensive emergency with blood pressures on admission as high as 228/107. PLAN: 1. Agree with aspirin 81 mg daily and Crestor 5 mg daily to optimize hypertension. Physical therapy (PT) and occupational therapy (OT) evaluations. No intervention needed for irregular internal carotid artery aneurysms without any measurable stenosis. History obtained from both the patient and the patient's daughter. The patient to follow up in the [facility] in 6-8 weeks. 2. Episode of vasovagal syncope. Recommend wearing compression stockings at all times.
[2019-10-18] MEDS ORDERED: ACYC400T PO (11:28)
[2019-10-18] MEDS ORDERED: AMLO5TAB6 PO (11:28)
[2019-10-18] MEDS ORDERED: ASPI81TAEC PO (11:28)
[2019-10-18 12:00] VITALS: BP 143/77
--- NOTE | 2019-10-18 13:52 | DS.PDOC ---
Discharge Summary General Date of Admission Oct 16, 2019 at 22:16 Date of Discharge October 18, 2019 Discharge Summary DISCHARGE DIAGNOSIS / SECONDARY DIAGNOSIS: Hypertensive Emergency w/ subacute R frontal infarct. Syncope Dyslipidemia Hypothyroidism Lip lesion, HSV panel still pending. PROCEDURES PERFORMED DURING STAY: None. CONSULTANTS: Dr. Antonio, neurology. HOSPITAL COURSE: This is an 84 year old female who presented to the ED for evaluation of a syncopal episode after a bowel movement. According to ER staff patient was weak, shaky and anxious on arrival but during admission patient denied chest pain, shortness of breath, palpations, fever or chills. She had not missed any doses of her medication and had eaten both lunch and dinner that day. On admission patients systolic blood pressure was >200 and she was admitted to the hospitalist service for further evaluation. Initial head ct, chest xray, ct angiography, neck cta, and brain MRA were all negative. Brain MRI showed a 5 mm acute to subacute right frontal white matter lacunar infarct. Patient was treated with Aspirin, Rosuvastatin, Irbesartan and Amlodipine and neurology was consulted. Patient cleared PT and her blood pressure stabilized and she was discharged. She will follow up with her PCP in 5-7 days. She will also follow up with [facility] outpatient in 6-8 weeks. DISCHARGE MEDICATIONS: Please see below. ALLERGIES: Please see below. SUBJECTIVE: Patient was seen and examined this morning bedside. She has a mild headache but otherwise feels better today. Patient denies chest pain, shortness of breath, cough, nausea, vomiting, fevers, chills, abdominal pain, diarrhea and constipation. OBJECTIVE: PHYSICAL EXAMINATION: VITAL SIGNS: Please see below. GENERAL: Pleasant 84 year old female sitting on the side of her bed, in no acute distress. HEENT: Normocephalic, atraumatic, moist mucus membrnaes, EOMI, erythematous small lesion on R side of mouth. CARDIOVASCULAR: Normal S1 S2 regular rate and rhythm with no murmurs, gallops or rubs. RESPIRATORY: Clear to auscultation bilaterally with no wheezes, rhonchi or rales. ABDOMINAL: Bowel sounds present abdomen soft and nontender. EXTREMITIES: No lower extremity edema. NEUROLOGICAL: AOx3, CN II-XII intact, spontaneously moves all 4 extremities, no facial droop, no gross focal deficits. PSYCHOLOGICAL: Appropriate. LABORATORY DATA: Please see below. IMAGING STUDIES: Chest XRay 10/16/19 impression: No active pulmonary disease. Head CT 10/16/19- impression: 1. No acute intracranial hemorrhage or acute territorial type infarct. 2. There is moderate patchy cerebral white matter hypodensity, likely representing small vessel ischemic disease in a patient this age. 3. Mild stable atrophy. CT angiography 10/16/19- impression: 1. No significant arterial stenosis or occlusion on this CTA head. 2. Additional findings described above. Neck CTA 10/16/19- impression: 1.There is irregular contour of the bilateral mid internal carotid arteries, suggestive of fibromuscular dysplasia. 2. Atherosclerosis and mild stenosis of the proximal left subclavian artery. 3. There is near effacement of the right pyriform sinus. Clinical correlation is recommended. 4. Additional findings described above. MRI Brain 10/17/19- impression: 1.There is chronic microvascular disease. 2. 5 mm acute to subacute right frontal white matter lacunar infarct. MRA Brain 10/17/19- impression: No major proximal vessel branch occlusion seen. ECHOCARDIOGRAM: Pending. DVT prophylaxis ordered: Lovenox DISPOSITION: Home. DISCHARGE CONDITION: Improved and Stable. FOLLOW UP: 1. Follow up with PCP in 5-7 days. 2. Follow up with [facility] outpatient in 6-8 weeks. 3. If symptoms return or worsen please call your PCP or return to the ED. ACTIVITY: As prior to admission. DIET: As prior to admission. TIME SPENT ON DISCHARGE: 50 minutes. Vital Signs/I&Os Vital Signs Date Time Temp Pulse Resp B/P (MAP) Pulse Ox O2 Delivery O2 Flow Rate FiO2 10/18/19 12:00 98.3 61 18 143/77 (99) 98 Room Air I&O- Last 24 Hours up to 6 AM 10/18/19 05:59 Intake Total 890 ml Output Total 100 ml Balance 790 ml Laboratory Data Labs 24H Laboratory Tests 2 10/17/19 14:05: Total Creatine Kinase 181, Creatine Kinase MB 1.6, Creatine Kinase MB Relative Index 0.88, Troponin I < 0.02 10/18/19 09:22: Nucleated Red Blood Cells % (auto) 0.0, Anion Gap 6L, Glomerular Filtration Rate 57.4, Calcium Level 9.0 CBC/BMP Laboratory Tests 10/18/19 09:22 Discharge Medications Scheduled Acetaminophen (Acetaminophen) 325 Mg Tablet, 325 MG PO BID, (Reported) TAKES AT NOON AND HS Acyclovir (Acyclovir) 400 Mg Tablet, 1 TAB PO TID Amlodipine Besylate (Amlodipine Besylate) 5 Mg Tablet, 1 TAB PO DAILY Aspirin (Aspirin EC) 81 Mg Tablet.dr, 81 MG PO DAILY Bupropion HCl (Wellbutrin Xl) 150 Mg Tab, 150 MG PO QHS, (Reported) Ergocalciferol (Vitamin D2) (Vitamin D2) 400 Unit Tablet, 400 UNIT PO DAILY, (Reported) Irbesartan (Irbesartan) 150 Mg Tablet, 150 MG PO QHS, (Reported) Levothyroxine Sodium (Levothyroxine Sodium) 112 Mcg Tab, 112 MCG PO QAM, (Reported) Magnesium (Magnesium) 250 Mg Tablet, 250 MG PO DAILY, (Reported) Mirtazapine (Mirtazapine) 7.5 Mg Tablet, 7.5 MG PO QHS, (Reported) Omeprazole (Omeprazole) 40 Mg Cap, 40 MG PO QHS, (Reported) Rosuvastatin Calcium (Rosuvastatin Calcium) 5 Mg Tablet, 5 MG PO DAILY, (Reporte d) Sertraline Hcl (Sertraline HCl) 50 Mg Tablet, 75 MG PO DAILY, (Reported) Ubidecarenone (Coq-10) 100 Mg Capsule, 100 MG PO DAILY, (Reported) Miscellaneous Medications Multivitamin with Iron (Children's Vitamins with Iron) 1 Each Tab.chew, 1 CHW PO, (Reported) Allergies Coded Allergies: Penicillins (Verified Allergy, Unknown, 04/01/19) Sulfa (Sulfonamide Antibiotics) (Verified Allergy, Unknown, 04/01/19) tetracycline (Verified Allergy, Unknown, 04/01/19) hydrocodone (Verified Adverse Reaction, Intermediate, hallucinations, 04/01/19) magnesium sulfate (Verified Adverse Reaction, Mild, vomiting, 04/01/19) GME ATTESTATION GME ATTESTATION My faculty preceptor for this patient encounter was physically present during the encounter and was fully available. All aspects of the patient interview, examination, medical decision making process, and medical care plan development were reviewed and approved by the faculty preceptor. The faculty preceptor is aware and concurs with the plan as stated in the body of this note and will attest to such by his/her cosignature. ATTENDING NOTE I, Alex Solares, have independently examined this patient and performed my own physical exam, as well as reviewed the documentation and edited where necessary. I have discussed in detail with the resident / student the findings and plan of treatment as documented by the resident / student and edited their note. I agree with their findings and treatment plan and have edited their documentation. I will continue to follow the patient during this hospital stay. Time spent on discharge 35 minutes CHARLA FERGUSON OMS-3 Oct 18, 2019 13:52 ALEX SOLARES MD Oct 18, 2019 14:40
[2019-10-21 00:06] LABS: HSV TYPE I IgM AB <1:10 titer (<1:10); HSV TYPE II IgG SPECIFIC <0.91 index (0.00-0.90); HSV TYPE II IgM ABY <1:10 titer (<1:10)
== END 2019-10-18 14:10 | disposition home or self-care (01) | DRG 304 ==
LOC: M ED 19:25 → M PCU 22:16 → ENRESERVDT 22:42 → ENRESERVTM 22:42 → M ED 23:25
PROVIDERS: ADMIT Internal Medicine; ATTEND Internal Medicine
DX: I16.1 Hypertensive emergency (principal); I63.9 Cerebral infarction, unspecified; R55 Syncope and collapse; E78.5 Hyperlipidemia, unspecified; E03.9 Hypothyroidism, unspecified; Z79.82 Long term (current) use of aspirin; Z79.899 Other long term (current) drug therapy; Z88.0 Allergy status to penicillin; Z88.2 Allergy status to sulfonamides; Z88.5 Allergy status to narcotic agent; Z88.8 Allergy status to other drugs, medicaments and biological substances; E53.8 Deficiency of other specified B group vitamins; M47.816 Spondylosis without myelopathy or radiculopathy, lumbar region; I44.0 Atrioventricular block, first degree

== ENCOUNTER → 2019-10-26 | Outpatient (CLI) | payer MEDICARE, BC ==
[~2019-10-26] MED LIST changes: +ACET1TAB55 PO; +ACYC400T PO; +ADVI100T PO; +AMLO5TAB6 PO; +ASPI81TAEC PO; +HM M250T PO; +IRBE150T7 PO; +MIRT1TAB PO; +ROSU5TAB5 PO; +VITA400T15 PO
--- NOTE | 2019-10-26 13:29 | REP ---
CT brain without contrast: History: Headache. Comparison head CT study October 16, 2019. CT findings: Digital preliminary design drafter chief radiograph is unremarkable. Vascular calcification is noted in the distal internal carotid arteries. Visualized paranasal sinuses are clear. Bone window settings show no bony calvarial defect. There is mild small vessel change in the periventricular white matter of the frontal lobes. Minimal generalized atrophy is present. There is no evidence of intracranial hemorrhage. No infarct, mass, extra-axial fluid collection, or midline shift is seen. No change from comparison CT study is observed. Impression: Vascular calcification and minimal diffuse atrophy. Small vessel changes. No acute intracranial abnormality. Electronically Signed by Yovany Mcfarland MD 10/26/2019 03:44 P
== END ==
LOC: M RAD 12:16
PROVIDERS: ATTEND Nurse Practitioner Adult Health
DX: R51 Headache (principal)

== ENCOUNTER → 2019-12-22 | Outpatient (REF) | payer MEDICARE, BC ==
[~2019-12-22] MED LIST changes: -MAPA325T2 PO; +MAPA325T8 PO
== END ==
LOC: M LAB REF 16:13
PROVIDERS: ATTEND Nurse Practitioner Adult Health
DX: M10.061 Idiopathic gout, right knee (principal)

== ENCOUNTER 2020-03-09 10:34 | Emergency (ER) | payer MEDICARE, BC ==
[~2020-03-09] VITALS: Ht 160 cm; Wt 58.4 kg
[~2020-03-09 10:34] MED LIST changes: +AMLO1TAB24 PO; -AMLO5TAB6 PO; +ASPI-546 PO; -ASPI1TAB15 PO; -CHILCHW27 PO; +CHILCHW28 PO; -COUM7.5T PO; +COUM7.5T6 PO
[2020-03-09] MEDS ORDERED: NS 1,000 ML IV SCH (11:02)
[2020-03-09 11:27] LABS: BASO % 0.6 % (0.0-1.0); EOS # 0.1 10^3/uL (0.0-0.5); EOS % 1.1 % (0.0-3.0); HEMATOCRIT 38.1 % (36.0-47.0); HEMOGLOBIN 12.5 g/dl (12.0-15.5); LYMPH # 0.9 10^3/uL (1.5-5.0); LYMPH % 13.7 % (24.0-44.0); MEAN CORPUSCULAR HEMOGLOBIN 31.5 pg (27.0-33.0); MEAN CORPUSCULAR HGB CONC 32.8 g/dl (32.0-36.5); MONO # 0.6 10^3/uL (0.0-0.8); MONO % 9.7 % (0.0-5.0); NEUTROPHILS # 4.7 10^3/uL (1.5-8.5); NEUTROPHILS % 74.4 % (36.0-66.0); PLATELET COUNT, AUTOMATED 226 10^3/uL (150-450); RED BLOOD COUNT 3.97 10^6/uL (4.00-5.40); WHITE BLOOD COUNT 6.3 10^3/uL (4.0-10.0)
[2020-03-09 11:42] LABS: INR 0.91
[2020-03-09 11:44] VITALS: BP 172/78
[2020-03-09 11:50] LABS: ALBUMIN 4.8 GM/DL (3.2-5.2); BILIRUBIN,DIRECT 0.1 MG/DL (0.0-0.2); BILIRUBIN,TOTAL 0.5 MG/DL (0.2-1.0); CALCIUM LEVEL 9.8 MG/DL (8.8-10.2); CREATININE FOR GFR 1.04 MG/DL (0.55-1.30); GLOMERULAR FILTRATION RATE 53.6 (>32); POTASSIUM SERUM 4.4 MEQ/L (3.5-5.1); TOTAL PROTEIN 7.7 GM/DL (6.4-8.2)
== END 2020-03-09 12:50 | disposition home or self-care (01) ==
LOC: M ED 10:34
DX: R10.9 Unspecified abdominal pain (principal); I10 Essential (primary) hypertension; E78.5 Hyperlipidemia, unspecified; E07.9 Disorder of thyroid, unspecified; Z86.73 Personal history of transient ischemic attack (TIA), and cerebral infarction without residual deficits; Z79.82 Long term (current) use of aspirin; Z79.899 Other long term (current) drug therapy; Z88.0 Allergy status to penicillin; Z88.2 Allergy status to sulfonamides; Z88.5 Allergy status to narcotic agent; Z88.8 Allergy status to other drugs, medicaments and biological substances; Z88.1 Allergy status to other antibiotic agents

== ENCOUNTER → 2020-07-19 | Outpatient (CLI) | payer MEDICARE, BC ==
[~2020-07-19] MED LIST changes: +ADVI200C8 PO
== END ==
LOC: M LABSMTC 09:39
PROVIDERS: ATTEND Anesthesiology
DX: Z01.812 Encounter for preprocedural laboratory examination (principal); Z20.828 Contact with and (suspected) exposure to other viral communicable diseases

== ENCOUNTER 2020-07-24 06:14 | Day surgery (SDC) | payer MEDICARE, BC ==
[~2020-07-24] VITALS: Ht 154.9 cm; Wt 59.4 kg
[2020-07-24] MEDS ORDERED: CLINDAMYCIN 600 MG in IV 1 EA IV ONE (07:00)
[2020-07-24] MEDS ORDERED: LR 1,000 ML IV ONE (07:00)
[2020-07-24] MEDS ORDERED: MIDAZOLAM INJ 2MG/2ML VIAL (J2250 PER 1MG) As Ordered ONE (07:03)
[2020-07-24] MEDS ORDERED: fentaNYL 100 MCG/2 ML INJECTION (J3010) As Ordered ONE (07:05)
[2020-07-24] MEDS ORDERED: dexameTHASONE 4 MG/ML 1ML VIAL (J1100 PER 1MG) As Ordered ONE (07:07)
[2020-07-24] MEDS ORDERED: CLINDAMYCIN 600 MG/50 ML PREMIX BAG As Ordered ONE (07:14)
[2020-07-24] MEDS ORDERED: CLINDAMYCIN INJ 900MG/6ML VIAL As Ordered ONE (07:15)
[2020-07-24] MEDS ORDERED: KETAMINE HCL 200 MG/20 ML VIAL As Ordered ONE (07:34)
[2020-07-24] MEDS ORDERED: ONDANSETRON 4MG/2ML VIAL As Ordered ONE (07:51)
[2020-07-24] MEDS ORDERED: METOCLOPRAMIDE INJ 10MG/2ML VIAL (J2765 PER 1) As Ordered ONE (08:12)
[2020-07-24] MEDS ORDERED: fentaNYL 100 MCG/2 ML INJECTION (J3010) IV PRN (09:30)
[2020-07-24] MEDS ORDERED: LR 1,000 ML IV SCH ×2 (09:30→09:45)
[2020-07-24] MEDS ORDERED: ONDANSETRON 4MG/2ML VIAL IV PRN (09:30)
[2020-07-24] MEDS ORDERED: oxyCODONE 5MG TAB PO PRN (09:30)
--- NOTE | 2020-07-24 09:34 | RO ---
OPERATIVE NOTE DATE OF OPERATION: 07/24/2020 PREOPERATIVE DIAGNOSIS: Retained painful hardware, left hip. POSTOPERATIVE DIAGNOSIS: Retained painful hardware, left hip. PROCEDURE: Removal of three 7.3 mm cannulated screws with two washers, left hip. SURGEON: Yifan Pelayo M.D. KERFER MACHINE OPERATOR: None. ANESTHESIA: Spinal anesthetic. COMPLICATIONS: None. ESTIMATED BLOOD LOSS: Less than 20 mL. FINDINGS: The screws were well-fixed and difficult to remove. DESCRIPTION OF PROCEDURE: After antibiotics were given intravenously preoperatively, a successful spinal anesthetic was induced. She was placed on a regular table with a bump under the left hip. The left hip area was then carefully prepped and draped in the usual sterile fashion. Then after appropriate time-out, the previous incision in the skin was made and Bovee cautery was used to coagulate crossing vessels down to the tensor fascia, which was then divided in line with the skin incision. This exposed the underlying vastus lateralis tendons. The screws were actually out of plane compared to the incision; so this required manipulation of the left in rotation, flexion, and abduction to allow us to access the screws. However, I still could not get the screwdriver into the screw heads. Thus, a secondary small stab incision was made more posterior. I made a small incision with a scalpel just superficially in the skin and then, I used a small hemostat to penetrate through the tensor fascia exiting into the depth of the wound right over the screw heads. Once that plane had been established, a screwdriver was able to be placed into the region where the screw heads were. I first attempted to remove the inferior and anterior screw. The screwdriver was introduced and the screw started to back out; however, once it got to the shank thread junction, the screw would no longer back out. Thus, I had to use a pair of pliers with significant extraction force combined with the screwdriver to eventually try to get the screw removed; however, it still would not move and thus, I had to make the Bovee cautery cut down to the bone actually to expose the underlying washer and then, I had to elevate the washer up over the shank of the screwdriver and thus, after that, the screw would start back out again. It was as if the washer held tight by the soft tissues were not allowing the screw to back out; but once that had happened, the screw did back out, and I was able to extract the washer. I then addressed the next screw, which was the superior and the posterior screw. This screw was very difficult to turn in counterclockwise fashion because it was very well fixed into her bone, but the screw did back out up until again the screw thread shaft interface and then would not back out further. Thus at this point, we turned our attention to the more superior anterior screw to get that out of our way so we could access the other posterior screw. This screw was removed without difficulty. I did have to dissect down to the bone again to identify the washer and then remove the washer. Then, we turned our attention back to the posterior screw, we then removed that, and it came out quite easily. It was noteworthy that there was no washer associated with this posterior screw. We copiously irrigated out the wounds. I then closed the tensor fascia rent that I had to make in order to expose the screw heads and the washers back with a #1 interrupted PDS suture. I then irrigated between layers and closed the tensor fascia with several interrupted #1 PDS sutures. Irrigated again and then closed the deep subdermal sutures with interrupted 2-0 PDS sutures. Skin was closed with juju covered by Optifoam and dry sterile bulky dressing. She was then turned supine and transferred to the recovery room in stable condition. There were no intraoperative complications.
[2020-07-24] MEDS ORDERED: NORCO, ANEXSIA 5/325MG TABLET (HYDROcodone/ACETAMINOPHEN) PO PRN ×2 (09:45)
[2020-07-24] MEDS ORDERED: MORPHINE 2 MG/ML 1ML VIAL (J2270) IV PRN (09:45)
[2020-07-24 13:30] VITALS: BP 140/71
== END 2020-07-24 13:49 | disposition home or self-care (01) ==
LOC: M SDC 06:14
PROVIDERS: ATTEND Orthopaedic Surgery
DX: T84.84XA Pain due to internal orthopedic prosthetic devices, implants and grafts, initial encounter (principal); M25.552 Pain in left hip; I10 Essential (primary) hypertension; E78.00 Pure hypercholesterolemia, unspecified; E03.9 Hypothyroidism, unspecified; K21.9 Gastro-esophageal reflux disease without esophagitis; D64.9 Anemia, unspecified; K57.92 Diverticulitis of intestine, part unspecified, without perforation or abscess without bleeding; F41.9 Anxiety disorder, unspecified; F32.9 Major depressive disorder, single episode, unspecified; Z88.0 Allergy status to penicillin; Z88.2 Allergy status to sulfonamides; Z88.8 Allergy status to other drugs, medicaments and biological substances; Z88.5 Allergy status to narcotic agent; Z79.899 Other long term (current) drug therapy
CPT/HCPCS: 20680; J1100; J2250; J2405; J2765; J3010

== ENCOUNTER → 2020-09-19 | Outpatient (REF) | payer MEDICARE, BC | LOC: M LAB REF 16:06 | PROVIDERS: ATTEND Nurse Practitioner Adult Health | DX: D64.9 Anemia, unspecified (principal) ==

== ENCOUNTER → 2021-03-28 | Outpatient (REF) | payer MEDICARE, BC ==
[~2021-03-28] MED LIST changes: +ACYC1TAB PO; -ACYC400T PO; +ASPI-569 PO; -ASPI81TAEC PO; +OMEP40CA4 PO; -OMEP40CA97 PO; -PEG1POW PO; +POLY17PO18 PO
== END ==
LOC: M LAB REF 13:28
PROVIDERS: ATTEND Nurse Practitioner Adult Health
DX: 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 chronic kidney disease, or unspecified chronic kidney disease (principal)

== ENCOUNTER 2021-07-09 23:06 | Emergency (ER) | payer MEDICARE, BC ==
[~2021-07-09] VITALS: Ht 152.4 cm; Wt 54.5 kg
--- OUTSIDE RECORDS SUMMARY | 2021-07-09 23:15 | CCD | Continuity of Care Document ---
Author Author Wendy GORDON PA Organization Unknown Address [address] [place] [address], [address] [place] [address] Phone [phone] Care Team Providers Care Catalog Librarian Name Role Phone Ayleen Cabrera DENITRATOR AUTM [phone] Bonnie Thomas ANP AUTM [phone] Problems Active Problems Provider Date Essential hypertension Onset: 06/12/2016 Pure hypercholesterolemia Onset: 016 Social History Type Date Description Comments Sex Unknown ETOH Use Denies alcohol use Tobacco Use Start: Unknown Denies Smoking Allergies, Adverse Reactions, Alerts Active Allergies Criticality Reaction | Severity Comments Date Penicillin Unable to assess criticality 06/12/2016 Tetracycline Unable to assess criticality 06/12/2016 Sulfamethoxazole Unable to assess criticality 06/12/2016 Magnesium Unable to assess criticality 06/12/2016 Hydrocodone Unable to assess criticality 06/12/2016 Medications Active Medications SIG Qnty Indications Ordering Provide r Date Hydrocodone Bitartrate/Acetaminophen 5-325mg Tablets 1 tab by mouth every 6 hours prn/pain af ter surgery(Please DO Not Fill Until 07/24/2020) 30tabs DRoque Felder MD 2019 Euflexxa 20mg/2ML Soln Prefill Syr cheryl emile knee #2 klf/hd 11/22/20 emile knee #2 11/22/2020 KLF/Ag emile knee #3 KLF/Ag 11/29/2020. Sebastian Callahan MD 04/28/2020 Hydrocortisone Cream 10% (Aquasonic Base ) 10% Cream as directed by physical therapy 4Oz M17.0 Sebastian Callahan MD 06/10/[address] 1 by mouth every day Unknown Cranberry 500mg Capsules Unknown Vitamin B12 1000mcg Tablets ER Unknown Cod Liver Oil Capsules Unknown Vitamin C 500mg Capsules 1 by mouth twice a day Unknown Glucosamine Chondroitin 1500 Complex 1500Com Capsules Unknown Pravastatin Sodium 40mg Tablets take one tablet by mouth every day at bedtime Unknown Toprol XL 50mg Tablets ER 24HR twice a day Unknown Gemfibrozil 600mg Tablets Unknown Omeprazole 40mg Capsules DR 1 by mouth every day Unknown Potassium 99mg Tablets 1 by mouth every day Unknown Sertraline HCL 50mg Tablets 1 by mouth every day Unknown Bupropion HCL ER (SR) 150mg Tablets ER 12HR Unknown Meloxicam 7.5mg Tablets 1 by mouth every day Unknown Avapro 300mg Tablets 1 by mouth every day Unknown Levothyroxine Sodium 112mcg Tablet s 1 by mouth every day Unknown Immunizations Description No Information Available Vital Signs Date Vital Result Comment 11/13/2020 8:20am Body Temperature 96.8 F Height 61.5 inches 5'1.50" Weight 123.50 lb BMI (Body Mass Index) 23.0 kg/m2 09/19/2020 2:54pm Body Temperature 97.1 F Results Description No Information Available Procedures Date Code Description Status 03/12/2021 39987 X-Ray Knee Complete W/Obliques & Tunnel And/Or Standing Views Completed 03/12/202119457 Inject/Drain Joint/Bursa Major C ompleted 03/12/2021 35440 Office/Outpatient Established Mo d MDM 30-39 Min Completed 01/26/2021 74775 Office/Outpatient Established Lo w MDM 20-29 Min Completed 12/28/2020 04942 Manual Therapy Each 15 Minutes C ompleted 12/25/2020 14681 Manual Therapy Each 15 Minutes C ompleted 12/25/2020 94230 Therapeutic Procedure, Each 15 M inutes Completed 12/21/2020 93202 Office/Outpatient Established Lo w MDM 20-29 Min Completed 12/21/2020 36619 Ultrasound, Each 15 Min, Constan t Attendance Completed 12/21/2020 82105 X-Ray Femur Minimum 2 Views Comp leted 12/18/2020 66694 Manual Therapy Each 15 Minutes C ompleted 12/18/2020 10906 Therapeutic Procedure, Each 15 M inutes Completed 12/14/2020 92675 Therapeutic Procedure, Each 15 M inutes Completed 12/14/2020 54784 Manual Therapy Each 15 Minutes C ompleted 12/11/2020 10813 Manual Therapy Each 15 Minutes C ompleted 12/11/2020 89073 Therapeutic Procedure, Each 15 M inutes Completed 12/01/2020 75686 Manual Therapy Each 15 Minutes C ompleted 12/01/2020 78520 Therapeutic Procedure, Each 15 M inutes Completed 11/29/2020 18394 Inject/Drain Joint/Bursa Major C ompleted 11/27/2020 47310 Manual Therapy Each 15 Minutes C ompleted 11/27/2020 61730 Therapeutic Procedure, Each 15 M inutes Completed 11/22/2020 45585 Inject/Drain Joint/Bursa Major C ompleted 11/21/2020 20768 Physical Therapy Eval - Low Comp lexity Completed 11/13/2020 42536 Inject/Drain Joint/Bursa Major C ompleted 11/08/2020 11347 Office/Outpatient Established Lo w MDM 20-29 Min Completed 11/08/2020 13037 X-Ray Hip Unilateral With Pelvis 2-3 Views Completed Medical Devices Description No Information Available Encounters Type Date Location Provider Dx Diagnosis Office Visit 03/12/2021 10:30a ELIZABETH Stout M17.0 Bilateral primary osteoarthritis of knee M70.62 Trochanteric bursitis, left hip Office Visit 01/26/2021 10:45a ELIZABETH Stout S70.02xD Contusion of left hip, subsequent encounter M70.62 Trochanteric bursitis, left hip Office Visit 12/21/2020 11:00a Nayely Felder MD S7 0.02xA Contusion of left hip, initial encounter Z87.81 Personal history of (healed) traumatic fracture Office Visit 11/08/2020 1:00p Nayely Felder, MD Z4 7.89 Encounter for other orthopedic aftercare Assessments Date Code Description Provider 03/12/2021 M17.0 Bilateral primary osteoarthritis of knee ELIZABETH Donnelly 03/12/2021 M70.62 Trochanteric bursitis, left hip ELIZABETH Donnelly 01/26/2021 S70.02xD Contusion of left hip, subsequen t encounter ELIZABETH Donnelly 01/26/2021 M70.62 Trochanteric bursitis, left hip ELIZABETH Donnelly 12/28/2020 Z47.89 Encounter for other orthopedic a ftercare Danamarie Ortolano, [employer]ISS[employer] OFFICER 12/25/2020 Z47.89 Encounter for other orthopedic a ftercare Chapito Pollack PT, DPT 12/21/2020 S70.02xA Contusion of left hip, initial e ncounter Yifan Felder MD 12/21/2020 Z87.81 Personal history of (healed) tra umatic fracture Yifan Felder MD 12/21/2020 Z47.89 Encounter for other orthopedic a ftercare Rosario Scee P.T.A. 12/18/2020 Z47.89 Encounter for other orthopedic a ftercare Danamarie Ortolano, COMMISS[employer] FIRE OFFICER 12/14/2020 Z47.89 Encounter for other orthopedic a ftercare Danamarie Ortolano, COMMISSIONED FIRE OFFICER 12/11/2020 Z47.89 Encounter for other orthopedic a ftercare Danamarie Ortolano, COMMISS[employer]ED FIRE OFFICER 12/01/2020 Z47.89 Encounter for other orthopedic a ftercare Chapito Pollack, PT, DPT 11/29/2020 M17.0 Bilateral primary osteoarthritis of knee Ena L. SHARON DillardC 11/27/2020 Z47.89 Encounter for other orthopedic a ftercare Rosario Scee P.T.A. 11/22/2020 M17.0 Bilateral primary osteoarthritis of knee Ena L. SHARON DillardC 11/21/2020 Z47.89 Encounter for other orthopedic a ftercare Chapito Pollack, PT, DPT 11/13/2020 M17.0 Bilateral primary osteoarthritis of knee Ena Dillard PA-C 11/08/2020 Z47.89 Encounter for other orthopedic a moose Felder MD Plan of Treatment Future Appointment(s):* 05/04/2021 4:30 pm - ELIZABETH Donnelly at [place] 03/12/2021 - ELIZABETH Donnelly* M17.0 Bilateral primary osteoarthritis of knee * Follow up:* in 12 weeks for emile knee recheck with iid * M70.62 Trochanteric bursitis, left hip Functional Status Description No Information Available Mental Status Description No Information Available Referrals Refer to Dr Reason for Referral Status Appt Date Abelardo Gordon Pac 03/12/21 Gel-One Emile Knee, pe r medicare no auth req based on medical necessity, seconday bcbr is supplementary no auth req, passed to saranya to order sw. Created [address] [place] [phone] Ena Dillard PA-C Bilateral knee Euflexxa- No authorization req. Patient is here already. Created [address] [place] [phone] Asha Felder MD PT BASED ON MED. [facility] TO PT DEPT. NT C reated [facility], [address] [place] [phone]
--- OUTSIDE RECORDS SUMMARY | 2021-07-09 23:15 | CCD | Continuity of Care Document ---
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 Sebastian Callahan MD [...] Information Available Procedures Date Code Description Status 05/29/2021 Inject/Drain Joint/Bursa Major C ompleted 05/29/2021 15754 Office/Outpatient Established Lo w MDM 20-29 Min Completed 03/12/2021 73753 Office/Outpatient Established Mo d MDM 30-39 Min Completed 03/12/2021 21614 X-Ray Knee Complete W/Obliques & Tunnel And/Or Standing Views Completed 03/12/2021 Inject/Drain Joint/Bursa Major C ompleted 01/26/2021 88029 Office/Outpatient Established Lo w MDM 20-29 Min Completed 12/28/2020 90843 Manual Therapy Each 15 Minutes C ompleted 12/25/2020 47856 Manual Therapy Each 15 Minutes C ompleted 12/25/2020 37489 Therapeutic Procedure, Each 15 M inutes Completed 12/21/2020 31016 Ultrasound, Each 15 Min, Constan t Attendance Completed 12/21/2020 02774 X-Ray Femur Minimum 2 Views Comp leted 12/21/2020 26482 Office/Outpatient Established Lo w MDM 20-29 Min Completed 12/18/2020 03602 Manual Therapy Each 15 Minutes C ompleted 12/18/2020 51141 Therapeutic Procedure, Each 15 M inutes Completed 12/14/2020 63100 Manual Therapy Each 15 Minutes C ompleted 12/14/2020 68080 Therapeutic Procedure, Each 15 M inutes Completed 12/11/2020 89323 Manual Therapy Each 15 Minutes C ompleted 12/11/2020 78460 Therapeutic Procedure, Each 15 M inutes Completed 12/01/2020 88777 Manual Therapy Each 15 Minutes C ompleted 12/01/2020 01864 Therapeutic Procedure, Each 15 M inutes Completed 11/29/2020 03633 Inject/Drain Joint/Bursa Major C ompleted Medical Devices Description No Information Available Encounters Type Date Location Provider Dx Diagnosis Office Visit 05/29/2021 9[facility]a [facility] M17.0 Bilateral primary osteoarthritis of knee M25.461 Effusion, right knee Office Visit 03/12/2021 10:30a [facility] M17.0 Bilateral primary osteoarthritis of knee M70.62 Trochanteric bursitis, left hip Office Visit 01/26/2021 10:45a [facility] S70.02xD Contusion of left hip, subsequent encounter M70.62 Trochanteric bursitis, left hip Office Visit 12/21/2020 11:00a Nayely Felder MD S7 0.02xA Contusion of left hip, initial encounter Z87.81 Personal history of (healed) traumatic fracture Assessments Date Code Description Provider 05/29/2021 M17.0 Bilateral primary osteoarthritis of knee ELIZABETH Donnelly 05/29/2021 M25.461 Effusion, right knee ELIZABETH Dao 03/12/2021 M17.0 Bilateral primary osteoarthritis of knee ELIZABETH Donnelly 03/12/2021 M70.62 Trochanteric bursitis, left hip ELIZABETH Donnelly 01/26/2021 S70.02xD Contusion of left hip, subsequen t encounter ELIZABETH Donnelly 01/26/2021 M70.62 Trochanteric bursitis, left hip ELIZABETH Donnelly 12/28/2020 Z47.89 Encounter for other orthopedic a ftercare Danamarie Ortolano, RUG MEASURER 12/25/2020 Z47.89 Encounter for other orthopedic a ftercare Chapito Pollack, PT, DPT 12/21/2020 S70.02xA Contusion of left hip, initial e ncounter Yifan Felder MD 12/21/2020 Z87.81 Personal history of (healed) tra umatic fracture Yifan Felder MD 12/21/2020 Z47.89 Encounter for other orthopedic a ftercare Rosario Scee P.T.A. 12/18/2020 Z47.89 Encounter for other orthopedic a ftercare Danamarie Ortolano, RUG MEASURER 12/14/2020 Z47.89 Encounter for other orthopedic a ftercare Danamarie Ortolano, RUG MEASURER 12/11/2020 Z47.89 Encounter for other orthopedic a ftercare Danamarie Ortolano, RUG MEASURER 12/01/2020 Z47.89 Encounter for other orthopedic a ftercare Chapito Pollack, PT, DPT 11/29/2020 M17.0 Bilateral primary osteoarthritis of knee Ena iDllard PA-C Plan of Treatment Future Appointment(s):* 06/06/2021 11:00 am - ELIZABETH Donnelly at [facility] 05/29/2021 - ELIZABETH Donnelly* M17.0 Bilateral primary osteoarthritis of knee * Follow up:* in 12 weeks for genevieve shot with IID. * M25.461 Effusion, right knee Functional Status Description No Information Available Mental Status Description No Information Available Referrals Refer to Dr Reason for Referral Status Appt Date Abelardo Gordon Pac 03/12/21 Gel-One Ludy Knee, pe r medicare no auth req based on medical necessity, seconday bcbr is supplementary no auth req, passed to saranya to order sw. Created [facility] [address] [place] [address] [phone]
--- OUTSIDE RECORDS SUMMARY | 2021-07-09 23:15 | CCD ---
Continuity of Care Document (CCD) Created on: 06/14/2021 Wendy Eli External Reference #: [id number] : [id number] Sex: Female Author Author Wendy YAÑEZ DPM-PC Organization Unknown Address [address] [place] [address] Phone [phone] Care Team Providers Care Otc Clerk Name Role Phone LeandraJuan Jose Jr. AUTM Problems Active Problems Provider Date Essential hypertension Meera Yañez DPM-pc Onset: 019 Hypercholesterolemia Meera Yañez DPM-pc Onset: 9 Dystrophia unguium Meera Yañez DPM-pc Onset: 10/05/2019 Atherosclerosis of arteries of the extremities Meera thompson DPM-pc Onset: 10/05/2019 Pain in limb Meera Yañez DPM-pc Onset: 10/05/2019 Corns and callosities Meera Yañez DPM-pc Onset: 07/06/20 19 Acquired deformity of toe Meera Yañez DPM-pc Onset: 06/18 Hammer toe Meera Yañez DPM-pc Onset: 07/06/2019 Peripheral vascular disease Meera Yañez DPM-pc Onset: Social History Type Date Description Comments Sex Unknown Tobacco Use Start: Unknown Never Smoked Cigarettes Tobacco Use Start: Unknown Never Smoked Cigars Tobacco Use Start: Unknown Never Smoked A Pipe Smoking Status Reviewed: 03/14/21 Never Smoked A Pipe Tobacco Use Start: Unknown Never Used Smokeless Tobacco Tobacco Use Start: Unknown Patient has never smoked Allergies and adverse reactions Active Allergies Criticality Reaction | Severity Comments Date Penicillin Unable to assess criticality 07/06/2019 Tetracycline Unable to assess criticality 07/06/2019 Sorensen Milk Of Magnesia Unable to assess criticality 07/06/2019 Hydrocodone Unable to assess criticality 07/06/2019 Calcium Sulfate Unable to assess criticality 07/06/2019 Medications Active Medications SIG Qnty Indications Ordering Provide r Date Levothyroxine Sodium 112mcg Tablet s 1 by mouth every day Unknown Meloxicam 7.5mg Tablets 1 by mouth every day Unknown Sertraline HCL 50mg Tablets 1 and 1/2 by mouth every day Unknown Bupropion Hydrochloride ER (SR) 150mg Tablets ER 12HR 1 by mouth twice a day Unknown Omeprazole 40mg Capsules DR 1 by mouth every day Unknown Irbesartan 150mg Tablets 1 by mouth every day Unknown Mirtazapine 7.5mg Tablets 1 tab by mouth every day at bedtime Unknown Vitamin C 500mg Capsules 1 by mouth every day Unknown Vitamin D 1000Unit Tablets 1 by mouth every day Unknown Magnesium 250mg Tablets 1 tab with a meal orally once a day Unknown Coq-10 100mg Capsules ER Unknown Daily Eulalio Multivitamin/Iron Tabl ets 1 by mouth every day Unknown Advil 200mg Capsules 3 tab by mouth three times a day Unknown Rosuvastatin Calcium 5mg Tablets TK 1 T PO qd Unknown Metoprolol Succinate ER 50mg Tablets ER 24HR TK One T PO Once A Day Unknown Immunizations Description No Information Available Vital Signs Date Vital Result Comment 2020 9:48am Weight 130.00 lb Weight 58.968 kg 10/05/2019 10:34am Weight 120.00 lb Weight 54.432 kg Height 63 inches 5'3" BMI (Body Mass Index) 21.3 kg/m2 BSA (Body Surface Area) 1.56 m2 Results Description No Information Available Procedures Date Code Description Status 03/14/2021 77507 Pare Hyperkeratotic Lesion, 2-4 Completed Medical Devices Description No Information Available Encounters Description No Information Available Assessments Date Code Description Provider 03/14/2021 I70.203 Unspecified atherosc lerosis of [place] arteries of extremities, bilateral legs Mallory Nugent 03/14/2021 M20.40 Other hammer toe(s) (acquired), unspecified foot Mallory Nugent 03/14/2021 L84 Corns and callosities Mallory Smith 03/14/2021 L60.3 Nail dystrophy Mallory Nugent Plan of Treatment Future Appointment(s):* 09/17/2021 11:00 am - Mallory Nugent at [facility] Podiatry Functional Status Description No Information Available Mental Status Description No Information Available Referrals Description No Information Available
--- OUTSIDE RECORDS SUMMARY | 2021-07-09 23:15 | CCD | Continuity of Care Document ---
Author Author Wendy Honeycutt Organization Unknown Address [address] [facility] [address] [place] [address] Phone [phone] Care Team Providers Care Auto Rental Clerk Name Role Phone Bonnie Thomas AUTM [phone] Corteny Chavez AUTM [phone] Milad Holley DO AUTM [phone] [facility] AUTM [phone] Problems Active Problems Provider Date Essential hypertension ZULEYKA Honeycutt Onset: 12/22/2019 Senile asthenia ZULEYKA Honeycutt Onset: 12/22/2019 Pure hypercholesterolemia ZULEYKA Honeycutt Onset: 020 Hypothyroidism ZULEYKA Honeycutt Onset: 12/22/2019 Nervous system symptoms ZULEYKA Honeycutt Onset: 0 Cerebral artery occlusion ZULEYKA Honeycutt Onset: 020 Social History Type Date Description Comments Sex Unknown ETOH Use Denies alcohol use Tobacco Use Start: Unknown Patient has never smoked Allergies and adverse reactions Active Allergies Criticality Reaction | Severity Comments Date Penicillin Unable to assess criticality 05/25/2019 Tetracycline Unable to assess criticality rash 05/25/2019 Sulfa Unable to assess criticality rash 05/25/2019 Sorensen Milk Of Magnesia Unable to assess criticality 05/25/2019 Hydrocodone Unable to assess criticality dizziness/vo miting 05/25/2019 Medications Active Medications SIG Qnty Indications Ordering Provide r Date Shingrix 50mcg/0.5ML Suspension Re c 0.5ml intramuscular repeat in 2-6 months .5ml ZULEYKA Honeycutt 03/28/2021 Bupropion Hydrochloride ER (XL) 300mg Tablets ER 24HR 1 by mouth every day 90tabs [facility]/2020 Mirtazapine 7.5mg Tablets take 1 tablet by mouth at bedtime 90tabs Bonnie Syed [facility] 12/20/2020 Amlodipine Besylate 10mg Tablets 1 by mouth every day 90tabs [facility]/20/2020 Vitamin D3 Maximum Strength 125mcg (5000 Ut) Capsules one daily Bonnie Syed [facility] 12/20/2020 Sertraline HCL 100mg Tablets 1 by mouth every day 90tabs [facility] 04/18/2020 Diclofenac Sodium 3% Gel apply 1 gram to right knee four times daily for pain 100gm Bonnie Syed [facility] 12/22/2019 Rosuvastatin Calcium 5mg Tablets Take 1 Tablet By Mouth Every Day 90tabs [facility] 09/01 Levothyroxine Sodium 112mcg Tablet s 1 by mouth every day 90tabs [facility] 05/25/[address] Take 1 Capsule By Mouth Every Day 90caps [facility] 05/25/2019 Magnesium 250mg Tablets 1 by mouth every night at bedtime Unknown Co Q-10 100mg Capsules 1 by mouth every day Unknown Multivitamin Adult Tablets 1 by mouth every day Unknown Aspirin [address] 1 by mouth every day Unknown Tylenol 8 Hour 650mg Tablets ER 2 by mouth every day as needed Unknown Medications Administered in Office Medication SIG Qnty Indications Ordering Provider Date Covid-19 vaccine, Unspecified Inj ection Unknown 11/14/2020 Covid-19 vaccine, Unspecified Inj ection Unknown 10/17/2020 Administration Of Flu Vaccine Inj [facility]ction [facility]11/2020 Immunizations CPT Code Status Date Vaccine Lot # [id number] Given 03/28/2021 Pneumovax 23 [id number] Given 07/11/2020 Influenza Vaccin e Quadrivalent Preser/Antibiotic Free Im Use [id number] U-PneuC Given 08/17/2019 Prevnar 13 U-Flu Given 08/17/2019 Influenza,Unspecified Vital Signs Date Vital Result Comment 05/30/2021 9:43am BP Systolic 134 mmHg BP Diastolic 70 mmHg Heart Rate 74 /min Height 61 inches 5'1" Weight 118.00 lb O2 % BldC Oximetry 95 % BMI (Body Mass Index) 22.3 kg/m2 03/28/2021 10:10am BP Systolic 130 mmHg BP Diastolic 70 mmHg Heart Rate 66 /min Height 61 inches 5'1" Weight 118.12 lb O2 % BldC Oximetry 98 % RM Air BMI (Body Mass Index) 22.3 kg/m2 Results Test Acquired Date Facility Test Result H/L Range Note Laboratory test finding 03/28/2021 [facility] [address] [place] [address] [phone] Uric Acid 3.6 mg/dL Normal 2.6-6.0 Complete Blood Count 03/28/2021 [facility] Novelty Chain Maker: [place] [address] [phone] WBC 6.9 x10*3/UL 4.1 - 10.9 1 RBC 3.83 x10*6/UL Low 4.20 - 6.30 Hemoglobin 11.8 g/dL Low 12.0 - 18.0 Hematocrit 34.9 % Low 37.0 - 51.0 MCV 91.1 fL 80.0 - 97.0 MCH 30.8 pg 26.0 - 32.0 MCHC 33.8 g/dL 31.0 - 38.0 RDW 13.0 % 11.6 - 13.7 PLT 245 x10*3/UL 140 - 440 MPV 6.9 FL Low 7.8 - 11.0 Lymph % 13.0 % 10.0 - 58.5 Mid % 4.5 % 1.7 - 9.3 Neut % 82.5 % 37.0 - 92.0 Lymph # 0.9 x10*3/UL 0.6 - 4.1 Mid # 0.3 x10*3/UL 0.1 - 0.6 Neut # 5.7 x10*3/UL 2.0 - 7.8 Basic Metabolic Panel 03/28/2021 [facility] Novelty Chain Maker: [place] [address] [phone] Glucose 84 mg/dL 74 - 99 2 BUN 26 mg/dL High 7 - 18 Creatinine 1.1 mg/dL 0.6 - 1.3 Sodium 139 mEq/L 136 - 145 Potassium 4.7 mEq/L 3.5 - 5.1 Chloride 100 mEq/L 98 - 107 Carbon Dioxide 32 mEq/L 21 - 32 Calcium 9.9 mg/dL 8.5 - 10.1 GFR 47 mL/min Low >60 GFR 57 mL/min Low >60 3 Lipid Profile 03/28/2021 [facility] , Novelty Chain Maker: Dr Juan Jose Mobley [place], [place] [id number] [phone] Cholesterol 179 mg/dL 131 - 200 Triglycerides 101 mg/dL 30 - 150 HDL Cholesterol 73 mg/dL High 35 - 60 LDL (Calculated) 86 CALC 50 - 159 Laboratory test finding 03/28/2021 [facility], Novelty Chain Maker: [place] [address] [phone] Thyroid Stimulating Hormone 1.38 uIU/mL 0.3 6 - 3.74 Comprehensive Chem Profile 12/20/2020 [facility], Novelty Chain Maker: [place] [address] [phone] Glucose 98 mg/dL 74 - 99 4 BUN 18 mg/dL 7 - 18 Creatinine 0.9 mg/dL 0.6 - 1.3 Sodium 138 mEq/L 136 - 145 Potassium 4.5 mEq/L 3.5 - 5.1 Chloride 98 mEq/L 98 - 107 Carbon Dioxide 31 mEq/L 21 - 32 Calcium 9.7 mg/dL 8.5 - 10.1 Alk. Phosphatase 61 mg/dL 46 - 116 Total Bilirubin 0.4 mg/dL 0.2 - 1.0 Ast (Sgot) 23 U/L 15 - 37 Alt (SGPT) 24 U/L 12 - 78 Albumin 4.9 g/dL 3.4 - 5.0 Total Protein 7.5 g/dL 6.4 - 8.2 A/G Ratio 1.88 CALC 1.00 - 1.90 GFR 59 mL/min Low >60 GFR >= 60 mL/min >60 5 1 NOTE: CBC VERIFIED 2 100-125 mg/dL PRE-DIABET ES/FASTING >126 mg/dL DIABETES/FASTING 3 CHRONIC KIDNEY DISEASE STAGI NG PER NKF STAGE I & II GFR >= 60 NORMAL TO MILDLY DECREASED STAGE III GFR 30-59 MODERATELY DECREASED STAGE IV GFR 15-29 SEVERELY DECREASED STAGE V GFR <15 VERY LITTLE GFR LEFT ESRD GFR <15 ON CHIEF SECURITY OFFICER 4 100-125 mg/dL PRE-DIABET ES/FASTING >126 mg/dL DIABETES/FASTING 5 CHRONIC KIDNEY DISEASE STAGI NG PER NKF STAGE I & II GFR >= 60 NORMAL TO MILDLY DECREASED STAGE III GFR 30-59 MODERATELY DECREASED STAGE IV GFR 15-29 SEVERELY DECREASED STAGE V GFR <15 VERY LITTLE GFR LEFT ESRD GFR <15 ON CHIEF SECURITY OFFICER Procedures Date Code Description Status 05/30/2021 05652 Office/Outpatient Established Lo w MDM 20-29 Min Completed 04/04/2021 95191 Chronic Care MGMT 20 Mins Clinical Staff Time Per Calendar Month Completed 03/28/2021 53083 Office/Outpatient Established Mo d MDM 30-39 Min Completed 03/02/2021 78875 Chronic Care MGMT 20 Mins Clinical Staff Time Per Calendar Month Completed 01/22/2021 15021 Chronic Care MGMT 20 Mins Clinical Staff Time Per Calendar Month Completed 01/22/2021 01382 Chronic Care Management Services Ea Addl 20 Min Completed 12/20/2020 76073 Office/Outpatient Established Mo d MDM 30-39 Min Completed 12/18/2020 20150 Chronic Care MGMT 20 Mins Clinical Staff Time Per Calendar Month Completed 12/18/2020 31623 Chronic Care Management Services Ea Addl 20 Min Completed 03/03/2017 [id number] Mammogram Completed Medical Devices Description No Information Available Encounters Type Date Location Provider Dx Diagnosis Office Visit 05/30/2021 9:40a [facility] 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/unsp chr kdny N18.31 Chronic kidney disease, stag e 3a E03.9 Hypothyroidism, unspecified E78.00 Pure hypercholesterolemia, u nspecified I87.2 Venous insufficiency (chroni c) (peripheral) Assessments Date Code Description Provider 05/30/2021 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 chronic kidney disease, or unspecified chronic kidney disease Bonnie Syed [facility] 05/30/2021 N18.31 Chronic kidney disease, stage 3a MINH HoneycuttP 05/30/2021 E03.9 Hypothyroidism, unspecified ZULEYKA Honeycutt 05/30/2021 G30.1 Alzheimer's disease with late on set Bonnie Syed [facility] 05/30/2021 F02.81 Dementia in other di seases classified elsewhere with behavioral disturbance ZULEYKA Honeycutt 04/04/2021 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 chronic kidney disease, or unspecified chronic kidney disease Juan Jose Mobley MD 04/04/2021 E03.9 Hypothyroidism, unspecified Carlos Alberto slime Mobley MD 04/04/2021 N18.31 Chronic kidney disease, stage 3a Juan Jose Mobley MD 03/28/2021 G30.1 Alzheimer's disease with late on set ZULEYKA Honeycutt 03/28/2021 F02.81 Dementia in other di seases classified elsewhere with behavioral disturbance ZULEYKA Honeycutt 03/28/2021 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 chronic kidney disease, or unspecified chronic kidney disease Bonnie Syed [facility] 03/28/2021 N18.31 Chronic kidney disease, stage 3a Bonnie Gabbie [place], [facility] 03/28/2021 E03.9 Hypothyroidism, unspecified Bonnie Gabbie [place], [facility] 03/28/2021 E78.00 Pure hypercholesterolemia, unspe cified Bonnie Gabbie [place], [facility] 03/28/2021 I87.2 Venous insufficiency (chronic) ( peripheral) Bonnie Syed, [facility] 03/28/2021 D64.9 Anemia, unspecified Bonnie Gabbie [place], [facility] 03/28/2021 Z23 Encounter for immunization Bonnie Dyson, [facility] 03/28/2021 Z13.89 Encounter for screening for othe r disorder Bonnie Cartwright [place], [facility] 03/02/2021 G30.1 Alzheimer's disease with late on set Juan Jose Mobley MD 03/02/2021 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 chronic kidney disease, or unspecified chronic kidney disease Juan Jose Mobley MD 03/02/2021 N18.31 Chronic kidney disease, stage 3a Juan Jose Mobley MD 01/22/2021 E03.9 Hypothyroidism, unspecified Carlos Alberto slime Mobley MD 01/22/2021 N18.31 Chronic kidney disease, stage 3a Juan Jose Mobley MD 01/22/2021 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 chronic kidney disease, or unspecified chronic kidney disease Juan Jose Mobley MD 12/20/2020 G30.1 Alzheimer's disease with late on set Bonnie Syed, [facility] 12/20/2020 F02.81 Dementia in other di seases classified elsewhere with behavioral disturbance Bonnie Syed, [facility] 12/20/2020 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 chronic kidney disease, or unspecified chronic kidney disease Bonnie Gabbie [place], [facility] 12/20/2020 N18.31 Chronic kidney disease, stage 3a Bonnie Gabbie [place], [facility] 12/20/2020 E03.9 Hypothyroidism, unspecified Bonnie Gabbie [place], [facility] 12/20/2020 E78.00 Pure hypercholesterolemia, unspe cified Bonnie Gabbie [place], [facility] 12/20/2020 I87.2 Venous insufficiency (chronic) ( peripheral) ZULEYKA Honeycutt 12/18/2020 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 chronic kidney disease, or unspecified chronic kidney disease Juan Jose Mobley MD 12/18/2020 N18.31 Chronic kidney disease, stage 3a Juan Jose Mobley MD 12/18/2020 E03.9 Hypothyroidism, unspecified Carlos Alberto slime Mobley MD Plan of Treatment Future Appointment(s):* 09/05/2021 10:40 am - ZULEYKA Honeycutt at [facility] 05/30/2021 - ZULEYKA Honeycutt* 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 chronic kidney disease, or unspecified chronic kidney disease* Comments:* blood pressure controlled on current treatment plan which includes amlodipine 10 mg daily. * N18.31 Chronic kidney disease, stage 3a* Comments:* Last BMP acceptable. Will check BMP next visit. * E03.9 Hypothyroidism, unspecified* Comments:* Clinically euthyroid. 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 No mention of problems today. She now has a caregiver (non family member) in the daytime. She seems to respond more favorably to her. 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 [facility] Discussed possibly getting the immunization at [facility]. Functional Status Description No Information Available Mental Status Description No Information Available Referrals Description No Information Available
--- OUTSIDE RECORDS SUMMARY | 2021-07-09 23:15 | CCD | Continuity of Care Document ---
Author Author Wendy GORDON PA Organization Unknown Address [address] [place] [address], [address] [place] [address] Phone [phone] Care Team Providers Care Elevator Operator Service Name Role Phone Ayleen Cabrera Stella PARASITOLOGY TEACHER AUTM [phone] Bonnie Thomas ANP AUTM [phone] Problems Active Problems Provider Date Essential hypertension [...] SIG Qnty Indications Ordering Provide r Date Gel-One 30mg/3ML Prsy bilateral knee 06/06/21 Iid/TF Sukhjinder Dillard MD 06/06/2021 Hydrocodone Bitartrate/Acetaminophen 5-325mg Tablets 1 tab by mouth every 6 hours prn/pain af ter surgery(Please DO Not Fill Until 07/24/2020) 30tabs D. Luis Enrique Felder MD 2019 Euflexxa 20mg/2ML Soln Prefill [...] 05/29/2021 Inject/Drain Joint/Bursa Major C ompleted 05/29/2021 93356 Office/Outpatient Established Lo w MDM 20-29 Min Completed 03/12/2021 72932 Office/Outpatient Established Mo d MDM 30-39 Min Completed 03/12/2021 03930 X-Ray Knee Complete W/Obliques & Tunnel And/Or Standing Views Completed 03/12/2021 Inject/Drain Joint/Bursa Major C ompleted 01/26/2021 71355 Office/Outpatient Established Lo w MDM 20-29 Min Completed 12/28/2020 48352 Manual Therapy Each 15 Minutes C ompleted 12/25/2020 97214 Manual Therapy Each 15 Minutes C ompleted 12/25/2020 50414 Therapeutic Procedure, Each 15 M inutes Completed 12/21/2020 41818 Office/Outpatient Established Lo w MDM 20-29 Min Completed 12/21/2020 14386 X-Ray Femur Minimum 2 Views Comp leted 12/21/2020 36602 Ultrasound, Each 15 Min, Constan t Attendance Completed 12/18/2020 97210 Manual Therapy Each 15 Minutes C ompleted 12/18/2020 01465 Therapeutic Procedure, Each 15 M inutes Completed 12/14/2020 26776 Manual Therapy Each 15 Minutes C ompleted 12/14/2020 57695 Therapeutic Procedure, Each 15 M inutes Completed 12/11/2020 21228 Manual Therapy Each 15 Minutes C ompleted 12/11/2020 64511 Therapeutic Procedure, Each 15 M inutes Completed Medical Devices Description No Information Available Encounters Type Date Location Provider Dx Diagnosis [facility] [place] M17.0 Bilateral primary osteoarthritis of knee M25.461 Effusion, right knee Office Visit 03/12/2021 10:30a ELIZABETH Stout M17.0 Bilateral primary osteoarthritis of knee M70.62 Trochanteric bursitis, left hip Office Visit 01/26/2021 10:45a ELIZABETH Stout S70.02xD Contusion of left hip, subsequent encounter M70.62 Trochanteric bursitis, left hip Office Visit 12/21/2020 11:00a Nayely Felder MD S7 0.02xA Contusion of left hip, initial encounter Z87.81 Personal history of (healed) traumatic fracture Assessments Date Code Description Provider 06/06/2021 M17.0 Bilateral primary osteoarthritis of knee ELIZABETH Donnelly 05/29/2021 M17.0 Bilateral primary osteoarthritis of knee ELIZABETH Donnelly 05/29/2021 M25.461 Effusion, right knee Abelardo IELIZABETH Jung 03/12/2021 M17.0 Bilateral primary osteoarthritis of knee ELIZABETH Donnelly 03/12/2021 M70.62 Trochanteric bursitis, left hip ELIZABETH Donnelly 01/26/2021 S70.02xD Contusion of left hip, subsequen t encounter ELIZABETH Donnelly 01/26/2021 M70.62 Trochanteric bursitis, left hip ELIZABETH Donnelly 12/28/2020 Z47.89 Encounter for other orthopedic a ftercare Danamarie Ortolano, MANAGER MATERIAL 12/25/2020 Z47.89 Encounter for other orthopedic a ftercare Chapito Pollack, PT, DPT 12/21/2020 S70.02xA Contusion of left hip, initial e ncounter Yifan Felder MD 12/21/2020 Z87.81 Personal history of (healed) tra umatic fracture Yifan Felder MD 12/21/2020 Z47.89 Encounter for other orthopedic a ftercare Rosario Scee P.T.A. 12/18/2020 Z47.89 Encounter for other orthopedic a ftercare Danamarie Ortolano, MANAGER MATERIAL 12/14/2020 Z47.89 Encounter for other orthopedic a ftercare Danamarie Ortolano, MANAGER MATERIAL 12/11/2020 Z47.89 Encounter for other orthopedic a ftercare Danamarie Ortolano, MANAGER MATERIAL Plan of Treatment 05/29/2021 - ELIZABETH Donnelly* M17.0 Bilateral primary osteoarthritis of knee * Follow up:* in 12 weeks for genevieve shot with IID. * M25.461 Effusion, right knee Functional Status Description No Information Available Mental Status Description No Information Available Referrals Refer to Dr Reason for Referral Status Appt Date Abelardo Gordon I, Pac 03/12/21 Gel-One Ludy Knee, pe r medicare no auth req based on medical necessity, seconday bcbr is supplementary no auth req, passed to saranya to order sw. Created [address] [place] [address] [place] [id number] [phone]
--- OUTSIDE RECORDS SUMMARY | 2021-07-09 23:15 | CCD | Continuity of Care Document ---
Author Author Wendy Honeycutt Organization Unknown Address [address] [facility] [address] [place] [address] Phone [phone] Care Team Providers Care Trimmer Machine Name Role Phone Bonnie Thomas AUTM [phone] Cortney Chavez AUTM [phone] Milad Holley DO AUTM [phone] [facility] Physica AUTM [phone] Problems Active Problems Provider Date Essential hypertension [...] 1 by mouth every day 90tabs [facility] Mirtazapine 7.5mg Tablets take 1 tablet by mouth at bedtime 90tabs Bonnie Syed [facility] 12/20/2020 Amlodipine Besylate 10mg Tablets 1 by mouth every day 90tabs [facility] 12/20/2020 Vitamin D3 Maximum Strength 125mcg (5000 Ut) Capsules one daily Bonnie Syed [facility] 12/20/2020 Sertraline HCL 100mg Tablets 1 by mouth every day 90tabs [facility] 04/18/2020 Diclofenac Sodium 3% Gel apply 1 gram to right knee four times daily for pain 100gm Bonnie Syed [facility] 12/22/2019 Rosuvastatin Calcium 5mg Tablets Take 1 Tablet By Mouth Every Day 90tabs [facility] 09/01 Levothyroxine Sodium 112mcg Tablet s 1 by mouth every day 90tabs [facility] 05/25/[address] Take 1 Capsule By Mouth Every Day 90caps [facility] 05/25/2019 Magnesium 250mg Tablets 1 by mouth [...] Administration Of Flu Vaccine Inj ection [facility] 07/11/2020 Immunizations CPT Code Status Date Vaccine Lot # [id number] Given 03/28/2021 Pneumovax 23 [id number] Given 07/11/2020 Influenza Vaccin e Quadrivalent Preser/Antibiotic Free Im Use [id number] U-PneuC Given 08/17/2019 Prevnar 13 U-Flu Given [...] H/L Range Note Laboratory test finding 03/28/2021 [facility] [address] [place] [address] [phone] Uric Acid 3.6 mg/dL Normal 2.6-6.0 Complete Blood Count 03/28/2021 [facility] Bill Hiker: [place] [address] [phone] WBC 6.9 x10*3/UL 4.1 - 10.9 1 [...] 2.0 - 7.8 Basic Metabolic Panel 03/28/2021 [facility] Bill Hiker: [place] [address] [phone] Glucose 84 mg/dL 74 - 99 2 [...] mL/min Low >60 3 Lipid Profile 03/28/2021 [facility] , Bill Hiker: Dr Juan Jose Mobley [place], [place] [id number] [phone] Cholesterol 179 mg/dL 131 - 200 Triglycerides 101 mg/dL 30 - 150 HDL Cholesterol 73 mg/dL High 35 - 60 LDL (Calculated) 86 CALC 50 - 159 Laboratory test finding 03/28/2021 [facility], Bill Hiker: [place] [address] [phone] Thyroid Stimulating Hormone 1.38 uIU/mL 0.3 6 - 3.74 Comprehensive Chem Profile 12/20/2020 [facility], Bill Hiker: [place] [address] [phone] Glucose 98 mg/dL 74 - 99 4 [...] LITTLE GFR LEFT ESRD GFR <15 ON THIMBLE PRESS OPERATOR 4 100-125 mg/dL PRE-DIABET ES/FASTING >126 mg/dL DIABETES/FASTING 5 CHRONIC KIDNEY DISEASE STAGI NG PER NKF STAGE I & II GFR >= 60 NORMAL TO MILDLY DECREASED STAGE III GFR 30-59 MODERATELY DECREASED STAGE IV GFR 15-29 SEVERELY DECREASED STAGE V GFR <15 VERY LITTLE GFR LEFT ESRD GFR <15 ON THIMBLE PRESS OPERATOR Procedures Date Code Description Status 05/30/2021 30929 Office/Outpatient Established Lo w MDM 20-29 Min Completed 05/04/2021 31342 Chronic Care MGMT 20 Mins Clinical Staff Time Per Calendar Month Completed 05/04/2021 35069 Chronic Care Management Services Ea Addl 20 Min Completed 04/04/2021 86082 Chronic Care MGMT 20 Mins Clinical Staff Time Per Calendar Month Completed 03/28/2021 69538 Office/Outpatient Established Mo d MDM 30-39 Min Completed 03/02/2021 87994 Chronic Care MGMT 20 Mins Clinical Staff Time Per Calendar Month Completed 01/22/2021 31578 Chronic Care MGMT 20 Mins Clinical Staff Time Per Calendar Month Completed 01/22/2021 52585 Chronic Care Management Services Ea Addl 20 Min Completed 12/20/2020 16457 Office/Outpatient Established Mo d MDM 30-39 Min Completed 12/18/2020 98926 Chronic Care MGMT 20 Mins Clinical Staff Time Per Calendar Month Completed 12/18/2020 91988 Chronic Care Management Services Ea Addl 20 Min Completed 03/03/2017 [id number] Mammogram Completed Medical Devices Description No Information Available Encounters Type Date Location Provider Dx Diagnosis Office Visit 05/30/2021 9:40a [facility] 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 Bonnie Mlcean, MID TEACHER G30.1 Alzheimer's disease with late onset F02.81 Dementia in oth diseases 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 Bonnie Perla ne, MID TEACHER G30.1 Alzheimer's disease with late onset F02.81 Dementia in oth diseases 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 chronic kidney disease, or unspecified chronic kidney disease Bonnie Syed, [facility] 05/30/2021 N18.31 Chronic kidney disease, stage 3a Nikita Mobley, DO 05/30/2021 N18.31 Chronic kidney disease, stage 3a Bonnie Syed, [facility] 05/30/2021 E03.9 Hypothyroidism, unspecified Chri cat Mobley, DO 05/30/2021 E03.9 Hypothyroidism, unspecified Bonnie Syed, [facility] 05/30/2021 G30.1 Alzheimer's disease with late on set Nikita Mobley, DO 05/30/2021 G30.1 Alzheimer's disease with late on set Bonnie Syed, [facility] 05/30/2021 F02.81 Dementia in other di seases classified elsewhere with behavioral disturbance Nikita Mobley, DO 05/30/2021 F02.81 Dementia in other di seases classified elsewhere with behavioral disturbance Bonnie Syed, [facility] 05/04/2021 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 chronic kidney disease, or unspecified chronic kidney disease Juan Jose Mobley MD 05/04/2021 E03.9 Hypothyroidism, unspecified Carlos Alberto slime Mobley MD 05/04/2021 G30.1 Alzheimer's disease with late on set Juan Jose Mobley MD 04/04/2021 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 chronic kidney disease, or unspecified chronic kidney disease Juan Jose Mobley MD 04/04/2021 E03.9 Hypothyroidism, unspecified Carlos Alberto slime Mobley MD 04/04/2021 N18.31 Chronic kidney disease, stage 3a Juan Jose Mobley MD 03/28/2021 G30.1 Alzheimer's disease with late on set Bonnie Syed, [facility] 03/28/2021 F02.81 Dementia in other di banneres classified elsewhere with behavioral disturbance Bonnie Syed, [facility] 03/28/2021 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 chronic kidney disease, or unspecified chronic kidney disease Bonnie Syed, [facility] 03/28/2021 N18.31 Chronic kidney disease, stage 3a Bonnie Syed, [facility] 03/28/2021 E03.9 Hypothyroidism, unspecified Bonnie Syed, [facility] 03/28/2021 E78.00 Pure hypercholesterolemia, unspe cified Bonnie Syed, [facility] 03/28/2021 I87.2 Venous insufficiency (chronic) ( peripheral) Bonnie Syed, [facility] 03/28/2021 D64.9 Anemia, unspecified Bonnie Syed, [facility] 03/28/2021 Z23 Encounter for immunization Bonnie Dyson, [facility] 03/28/2021 Z13.89 Encounter for screening for othe r disorder Bonnie Syed, [facility] 03/02/2021 G30.1 Alzheimer's disease with late on [...] disease with late on set ZULEYKA Honeycutt 12/20/2020 F02.81 Dementia in other di seases classified elsewhere with behavioral disturbance ZULEYKA Honeycutt 12/20/2020 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 chronic kidney disease, or unspecified chronic kidney disease ZULEYKA Honeycutt 12/20/2020 N18.31 Chronic kidney disease, stage 3a ZULEYKA Honeycutt 12/20/2020 E03.9 Hypothyroidism, unspecified ZULEYKA Honeycutt 12/20/2020 E78.00 Pure hypercholesterolemia, unspe cified MINH HoneycuttP 12/20/2020 I87.2 Venous insufficiency (chronic) ( peripheral) ZULEYKA Honeycutt 12/18/2020 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 05/30/2021 - ZULEYKA Honeycutt* I12.9 [...] She has not had Shingrix yet. Apparently, [facility] closed [facility] the weekend. Discussed possibly getting the immunization at [facility]. Functional Status Description No Information Available Mental Status Description No Information Available Referrals Description No Information Available
--- OUTSIDE RECORDS SUMMARY | 2021-07-09 23:15 | CCD | Continuity of Care Document ---
Author Author Wendy Honeycutt Organization Unknown Address [address] [facility] [address] [place] [address] Phone [phone] Care Team Providers Care Pipe Stripper Name Role Phone Bonnie Thomas AUTM [phone] Cortney Chavez AUTM [phone] Milad Holley DO AUTM [phone] [facility] Physica AUTM [phone] Problems Active Problems Provider Date Essential hypertension [...] 1 by mouth every day 90tabs [facility]2020 Mirtazapine 7.5mg Tablets take 1 tablet by mouth at bedtime 90tabs Bonnie Syed [facility] 12/20/2020 Amlodipine Besylate 10mg Tablets 1 by mouth every day 90tabs [facility] 12/20/2020 Vitamin D3 Maximum Strength 125mcg (5000 Ut) Capsules one daily Bonnie Syed [facility] 12/20/2020 Sertraline HCL 100mg Tablets 1 by mouth every day 90tabs [facility] 04/18/2020 Diclofenac Sodium 3% Gel apply 1 gram to right knee four times daily for pain 100gm Bonnie Syed [facility] 12/22/2019 Rosuvastatin Calcium 5mg Tablets Take 1 Tablet By Mouth Every Day 90tabs [facility] 09/01 Levothyroxine Sodium 112mcg Tablet s 1 by mouth every day 90tabs [facility] 05/25/[address] Take 1 Capsule By Mouth Every Day 90caps [facility] 05/25/2019 Magnesium 250mg Tablets 1 by mouth [...] Administration Of Flu Vaccine Inj [facility]ction [facility] 07/11/2020 Immunizations CPT Code Status Date Vaccine Lot # [id number] Given 03/28/2021 Pneumovax 23 [id number] Given 07/11/2020 Influenza Vaccin e Quadrivalent Preser/Antibiotic Free Im Use [id number] U-PneuC Given 08/17/2019 Prevnar 13 U-Flu Given [...] H/L Range Note Laboratory test finding 03/28/2021 [facility] [address] [place] [address] [phone] Uric Acid 3.6 mg/dL Normal 2.6-6.0 Complete Blood Count 03/28/2021 [facility] Milk Sampler: [place] [address] [phone] WBC 6.9 x10*3/UL 4.1 - 10.9 1 [...] 2.0 - 7.8 Basic Metabolic Panel 03/28/2021 [facility] Milk Sampler: [place] [address] [phone] Glucose 84 mg/dL 74 - 99 2 [...] mL/min Low >60 3 Lipid Profile 03/28/2021 [facility] , Milk Sampler: Dr Juan Jose Mobley [place], [place] [id number] [phone] Cholesterol 179 mg/dL 131 - 200 Triglycerides 101 mg/dL 30 - 150 HDL Cholesterol 73 mg/dL High 35 - 60 LDL (Calculated) 86 CALC 50 - 159 Laboratory test finding 03/28/2021 [facility], Milk Sampler: [place] [address] [phone] Thyroid Stimulating Hormone 1.38 uIU/mL 0.3 6 - 3.74 Comprehensive Chem Profile 12/20/2020 [facility], Milk Sampler: [place] [address] [phone] Glucose 98 mg/dL 74 - 99 4 [...] LITTLE GFR LEFT ESRD GFR <15 ON REINFORCING STEEL PLACER 4 100-125 mg/dL PRE-DIABET ES/FASTING >126 mg/dL DIABETES/FASTING 5 CHRONIC KIDNEY DISEASE STAGI NG PER NKF STAGE I & II GFR >= 60 NORMAL TO MILDLY DECREASED STAGE III GFR 30-59 MODERATELY DECREASED STAGE IV GFR 15-29 SEVERELY DECREASED STAGE V GFR <15 VERY LITTLE GFR LEFT ESRD GFR <15 ON REINFORCING STEEL PLACER Procedures Date Code Description Status 05/30/2021 88119 Office/Outpatient Established Lo w MDM 20-29 Min Completed 04/04/2021 54582 Chronic Care MGMT 20 Mins Clinical Staff Time Per Calendar Month Completed 03/28/2021 61907 Office/Outpatient Established Mo d MDM 30-39 Min Completed 03/02/2021 86740 Chronic Care MGMT 20 Mins Clinical Staff Time Per Calendar Month Completed 01/22/2021 64350 Chronic Care MGMT 20 Mins Clinical Staff Time Per Calendar Month Completed 01/22/2021 94207 Chronic Care Management Services Ea Addl 20 Min Completed 12/20/2020 50292 Office/Outpatient Established Mo d MDM 30-39 Min Completed 12/18/2020 52386 Chronic Care MGMT 20 Mins Clinical Staff Time Per Calendar Month Completed 12/18/2020 36647 Chronic Care Management Services Ea Addl 20 Min Completed 03/03/2017 [id number] Mammogram Completed Medical Devices Description No Information Available Encounters Type Date Location Provider Dx Diagnosis Office Visit 05/30/2021 9:40a [facility] 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 Bonnie Perla ne, SENIOR [employer]ITAL MARK[employer] SPECIALIST G30.1 Alzheimer's disease with late onset F02.81 Dementia in oth diseases [facility] elswhr w behavioral disturb I12.9 Hypertensive chronic kidney disease w stg 1-4/unsp chr kdny N18.31 Chronic kidney disease, stag e 3a E03.9 Hypothyroidism, unspecified E78.00 Pure hypercholesterolemia, u nspecified I87.2 Venous insufficiency (chroni c) (peripheral) D64.9 Anemia, unspecified Z23 Encounter for immunization Z13.89 Encounter for screening for other disorder Office Visit 12/20/2020 11:00a [facility] Bonnie Mclean, [facility] G30.1 Alzheimer's disease with late onset F02.81 [...] or unspecified chronic kidney disease Bonnie Syed [facility] 05/30/2021 N18.31 Chronic kidney disease, stage 3a MINH HoneycuttP 05/30/2021 E03.9 Hypothyroidism, unspecified ZULEYKA Honeycutt 05/30/2021 G30.1 Alzheimer's disease with late on set Bonnie Syed [facility] 05/30/2021 F02.81 Dementia in other di [...] or unspecified chronic kidney disease Bonnie Syed [facility] 03/28/2021 N18.31 Chronic kidney disease, stage 3a Bonnie Gabbie Boston, [facility] 03/28/2021 E03.9 Hypothyroidism, unspecified Bonnie Gabbie Boston, [facility] 03/28/2021 E78.00 Pure hypercholesterolemia, unspe cified Bonnie Gabbie Boston, [facility] 03/28/2021 I87.2 Venous insufficiency (chronic) ( peripheral) Bonnie Syed, [facility] 03/28/2021 D64.9 Anemia, unspecified Bonnie Gabbie Dyson, [facility] 03/28/2021 Z23 Encounter for immunization Bonnie Dyson, [facility] 03/28/2021 Z13.89 Encounter for screening for othe r disorder Bonnie Cartwright Kiel, [facility] 03/02/2021 G30.1 Alzheimer's disease with late [...] 01/22/2021 N18.31 Chronic kidney disease, stage 3a Jaun Jose Mobley MD 01/22/2021 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 chronic kidney disease, or unspecified chronic kidney disease Juan Jose Mobley MD 12/20/2020 G30.1 Alzheimer's disease with late on set Bonnie Syed, [facility] 12/20/2020 F02.81 Dementia in other di seases classified elsewhere with behavioral disturbance Bonnie Syed, [facility] 12/20/2020 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 chronic kidney disease, or unspecified chronic kidney disease Bonnie Gabbie Boston, [facility] 12/20/2020 N18.31 Chronic kidney disease, stage 3a Bonnie Gabbie Boston, [facility] 12/20/2020 E03.9 Hypothyroidism, unspecified Bonnie Gabbie Boston, [facility] 12/20/2020 E78.00 Pure hypercholesterolemia, unspe cified Bonnie Gabbie Boston, [facility] 12/20/2020 I87.2 Venous insufficiency (chronic) ( peripheral) [...] 09/05/2021 10:40 am - ZULEYKA Honeycutt at [facility] 05/30/2021 - ZULEYKA Honeycutt* I12.9 [...] She has not had Shingrix yet. Apparently, [facility]. Discussed possibly getting the immunization at [facility]. Functional Status Description No Information Available Mental Status Description No Information Available Referrals Description No Information Available
--- OUTSIDE RECORDS SUMMARY | 2021-07-09 23:15 | CCD | Continuity of Care Document ---
Author Author Wendy Honeycutt Organization Unknown Address [address] [facility] [address] [place] [address] Phone [phone] Care Team Providers Care Customer Sales Distributor Name Role Phone Bonnie Thomas AUTM [phone] Cortney Chavez AUTM [phone] Milad Holley DO AUTM [phone] [facility] AUTM [phone] Problems Active Problems Provider Date Essential hypertension [...] 1 by mouth every day [facility] Mirtazapine 7.5mg Tablets take 1 tablet by mouth at bedtime 90tabs Bonnie Syed [facility] 12/20/2020 Amlodipine Besylate 10mg Tablets 1 by mouth every day 90tabs [facility]/2020 Vitamin D3 Maximum Strength 125mcg (5000 Ut) Capsules one daily Bonnie Syed [facility] 12/20/2020 Sertraline HCL 100mg Tablets 1 by mouth every day 90tabs [facility] 04/18/2020 Diclofenac Sodium 3% Gel apply 1 gram to right knee four times daily for pain 100gm Bonnie Syed [facility] 12/22/2019 Rosuvastatin Calcium 5mg Tablets Take 1 Tablet By Mouth Every Day 90tabs [facility] 09/01 Levothyroxine Sodium 112mcg Tablet s 1 by mouth every day 90tabs [facility] 05/25/[address] Take 1 Capsule By Mouth Every Day 90caps [facility] 05/25/2019 Magnesium 250mg Tablets 1 by [...] Administration Of Flu Vaccine Inj ection [facility] 07[facility]2020 Immunizations CPT Code Status Date Vaccine Lot # [id number] Given 03/28/2021 Pneumovax 23 [id number] Given 07/11/2020 Influenza Vaccin e Quadrivalent Preser/Antibiotic Free Im Use [id number] U-PneuC Given 08/17/2019 Prevnar 13 U-Flu Given [...] H/L Range Note Laboratory test finding 03/28/2021 [facility] [address] [place] [address] [phone] Uric Acid 3.6 mg/dL Normal 2.6-6.0 Complete Blood Count 03/28/2021 [facility] Process Supervisor: [place] [address] [phone] WBC 6.9 x10*3/UL 4.1 - 10.9 1 [...] 2.0 - 7.8 Basic Metabolic Panel 03/28/2021 [facility] Process Supervisor: [place] [address] [phone] Glucose 84 mg/dL 74 - 99 2 [...] mL/min Low >60 3 Lipid Profile 03/28/2021 [facility] , Process Supervisor: Dr Juan Jose Mobley [place], [place] [id number] [phone] Cholesterol 179 mg/dL 131 - 200 Triglycerides 101 mg/dL 30 - 150 HDL Cholesterol 73 mg/dL High 35 - 60 LDL (Calculated) 86 CALC 50 - 159 Laboratory test finding 03/28/2021 [facility] Supervisor: [place] [address] [phone] Thyroid Stimulating Hormone 1.38 uIU/mL 0.3 6 - 3.74 Comprehensive Chem Profile 12/20/2020 [facility] Supervisor: [place] [address] [phone] Glucose 98 mg/dL 74 - 99 4 [...] LITTLE GFR LEFT ESRD GFR <15 ON SITE WORKER 4 100-125 mg/dL PRE-DIABET ES/FASTING >126 mg/dL DIABETES/FASTING 5 CHRONIC KIDNEY DISEASE STAGI NG PER NKF STAGE I & II GFR >= 60 NORMAL TO MILDLY DECREASED STAGE III GFR 30-59 MODERATELY DECREASED STAGE IV GFR 15-29 SEVERELY DECREASED STAGE V GFR <15 VERY LITTLE GFR LEFT ESRD GFR <15 ON SITE WORKER Procedures Date Code Description Status 05/30/2021 65677 Office/Outpatient Established Lo w MDM 20-29 Min Completed 04/04/2021 90983 Chronic Care MGMT 20 Mins Clinical Staff Time Per Calendar Month Completed 03/28/2021 70925 Office/Outpatient Established Mo d MDM 30-39 Min Completed 03/02/2021 07354 Chronic Care MGMT 20 Mins Clinical Staff Time Per Calendar Month Completed 01/22/2021 08025 Chronic Care MGMT 20 Mins Clinical Staff Time Per Calendar Month Completed 01/22/2021 65937 Chronic Care Management Services Ea Addl 20 Min Completed 12/20/2020 45224 Office/Outpatient Established Mo d MDM 30-39 Min Completed 12/18/2020 90409 Chronic Care MGMT 20 Mins Clinical Staff Time Per Calendar Month Completed 12/18/2020 48537 Chronic Care Management Services Ea Addl 20 Min Completed 03/03/2017 [id number] Mammogram Completed Medical Devices Description No Information Available Encounters Type Date Location Provider Dx Diagnosis Office Visit 05/30/2021 9:40a [facility] 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 Bonnie Mclean, [facility] G30.1 Alzheimer's disease with late onset [...] or unspecified chronic kidney disease Bonnie Syed [facility] 05/30/2021 N18.31 Chronic kidney disease, stage 3a MINH HoneycuttP 05/30/2021 E03.9 Hypothyroidism, unspecified ZULEYKA Honeycutt 05/30/2021 G30.1 Alzheimer's disease with late on set Bonnie Syed [facility] 05/30/2021 F02.81 Dementia in other di [...] or unspecified chronic kidney disease Bonnie Syed [facility] 03/28/2021 N18.31 Chronic kidney disease, stage 3a Bonnie Gabbie Comstock, [facility] 03/28/2021 E03.9 Hypothyroidism, unspecified Bonnie Gabbie Comstock, [facility] 03/28/2021 E78.00 Pure hypercholesterolemia, unspe cified Bonnie Gabbie Comstock, [facility] 03/28/2021 I87.2 Venous insufficiency (chronic) ( peripheral) Bonnie Syed, [facility] 03/28/2021 D64.9 Anemia, unspecified Bonnie Gabbie Dyson, [facility] 03/28/2021 Z23 Encounter for immunization Bonnie Dyson, [facility] 03/28/2021 Z13.89 Encounter for screening for othe r disorder Bonnie Cartwright Kiel, [facility] 03/02/2021 G30.1 Alzheimer's disease with late [...] disease with late on set Bonnie Syed, [facility] 12/20/2020 F02.81 Dementia in other di seases classified elsewhere with behavioral disturbance Bonnie Syed, [facility] 12/20/2020 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 chronic kidney disease, or unspecified chronic kidney disease Bonnie Gabbie Comstock, [facility] 12/20/2020 N18.31 Chronic kidney disease, stage 3a Bonnie Gabbie Comstock, [facility] 12/20/2020 E03.9 Hypothyroidism, unspecified Bonnie Gabbie Comstock, [facility] 12/20/2020 E78.00 Pure hypercholesterolemia, unspe cified Bonnie Gabbie Comstock, [facility] 12/20/2020 I87.2 Venous insufficiency (chronic) ( [...] 09/05/2021 10:40 am - ZULEYKA Honeycutt at [facility] 05/30/2021 - ZULEYKA Honeycutt* I12.9 [...] She has not had Shingrix yet. Apparently, [facility]. Discussed possibly getting the immunization at [facility]. Functional Status Description No Information Available Mental Status Description No Information Available Referrals Description No Information Available
--- OUTSIDE RECORDS SUMMARY | 2021-07-09 23:15 | CCD | Continuity of Care Document ---
Author Author Wendy GORDON PA Organization Unknown Address [address] [place] [address], [address] [place] [address] Phone [phone] Care Team Providers Care Equal Opportunity Representative Name Role Phone Ayleen Cabrera Stella POLICY ADVISER AUTM [phone] Bonnie Thomas ANP AUTM [phone] Problems Active Problems Provider Date Essential hypertension [...] Information Available Procedures Date Code Description Status 06/06/2021 Inject/Drain Joint/Bursa Major C ompleted 05/29/2021 66357 Office/Outpatient Established Lo w MDM 20-29 Min Completed 05/29/2021 Inject/Drain Joint/Bursa Major C ompleted 03/12/2021 95531 Office/Outpatient Established Mo d MDM 30-39 Min Completed 03/12/2021 57641 X-Ray Knee Complete W/Obliques & Tunnel And/Or Standing Views Completed 03/12/2021 Inject/Drain Joint/Bursa Major C ompleted 01/26/2021 50703 Office/Outpatient Established Lo w MDM 20-29 Min Completed 12/28/2020 23448 Manual Therapy Each 15 Minutes C ompleted 12/25/2020 33038 Therapeutic Procedure, Each 15 M inutes Completed 12/25/2020 95856 Manual Therapy Each 15 Minutes C ompleted 12/21/2020 42332 Office/Outpatient Established Lo w MDM 20-29 Min Completed 12/21/2020 92378 Ultrasound, Each 15 Min, Constan t Attendance Completed 12/21/2020 35585 X-Ray Femur Minimum 2 Views Comp leted 12/18/2020 81747 Manual Therapy Each 15 Minutes C ompleted 12/18/2020 12553 Therapeutic Procedure, Each 15 M inutes Completed 12/14/2020 72233 Manual Therapy Each 15 Minutes C ompleted 12/14/2020 03257 Therapeutic Procedure, Each 15 M inutes Completed 12/11/2020 77812 Manual Therapy Each 15 Minutes C ompleted 12/11/2020 47786 Therapeutic Procedure, Each 15 M inutes Completed Medical Devices Description No Information Available Encounters Type Date Location Provider Dx Diagnosis Office Visit 06/06/2021 11:00a ELIZABETH Stout M17.0 Bilateral primary osteoarthritis of knee Office Visit 05/29/2021 9:30a ELIZABETH Stout M17.0 Bilateral primary osteoarthritis of knee M25.461 [...] for other orthopedic a ftercare Danamarie Ortolano, [employer] CAPTAIN 12/25/2020 Z47.89 Encounter for other orthopedic a ftercare Chapito Pollack, PT, DPT 12/21/2020 S70.02xA Contusion of left hip, initial e ncounter Yifan Felder MD 12/21/2020 Z87.81 Personal history of (healed) tra umatic fracture Yifan Felder MD 12/21/2020 Z47.89 Encounter for other orthopedic a ftercare Rosario Scee P.T.A. 12/18/2020 Z47.89 Encounter for other orthopedic a ftercare Danamarie Ortolano, PILOT CAPTAIN 12/14/2020 Z47.89 Encounter for other orthopedic a ftercare Danamarie Ortolano, PILOT CAPTAIN 12/11/2020 Z47.89 Encounter for other orthopedic a ftercare Danamarie Ortolano, PILOT CAPTAIN Plan of Treatment 05/29/2021 - ELIZABETH Donnelly* M17.0 Bilateral primary osteoarthritis of knee * Follow up:* in 12 weeks for genevieve shot with IID. * M25.461 Effusion, right knee Functional Status Description No Information Available Mental Status Description No Information Available Referrals Refer to Dr Reason for Referral Status Appt Date Abelardo Gordon I Pac 03/12/21 Gel-One Ludy Knee, pe r medicare no auth req based on medical necessity, seconday bcbr is supplementary no auth req, passed to saranya to order sw. Created [address] [facility] [address] [place] [address] [phone]
--- OUTSIDE RECORDS SUMMARY | 2021-07-09 23:16 | CCD ---
Author Author [facility] Organization [facility] Address Unknown Phone Unavailable Care Team Providers Care Health Safety Specialist Name Role Phone LePine, M Bonnie NAIL WELTER Unavailable Unavailable LePine, M Bonnie NAIL WELTER Unavailable Unavailable LePine, M Bonnie NAIL WELTER Unavailable Unavailable LePine, M Bonnie NAIL WELTER Unavailable Unavailable LePine, M Bonnie NAIL WELTER Unavailable Unavailable LePine, M Bonnie NAIL WELTER Unavailable Unavailable LePine, M Bonnie NAIL WELTER Unavailable Unavailable LePine, M Bonnie NAIL WELTER Unavailable Unavailable LePine, M Bonnie NAIL WELTER Unavailable Unavailable LePine, M Bonnie NAIL WELTER Unavailable Unavailable LePine, M Bonnie NAIL WELTER Unavailable Unavailable LePine, M Bonnie NAIL WELTER Unavailable Unavailable LePine, M Bonnie NAIL WELTER Unavailable Unavailable LePine, M Bonnie NAIL WELTER Unavailable Unavailable LePine, M Bonnie NAIL WELTER Unavailable Unavailable LePine, M Bonnie NAIL WELTER Unavailable Unavailable LePine, M Bonnie NAIL WELTER Unavailable Unavailable LePine, M Bonnie NAIL WELTER Unavailable Unavailable LePine, M Bonnie NAIL WELTER Unavailable Unavailable LePine, M Bonnie NAIL WELTER Unavailable Unavailable LePine, M Bonnie NAIL WELTER Unavailable Unavailable LePine, M Bonnie NAIL WELTER Unavailable Unavailable LePine, M Bonnie NAIL WELTER Unavailable Unavailable LePine, M Bonnie NAIL WELTER Unavailable Unavailable LePine, M Bonnie NAIL WELTER Unavailable Unavailable LePine, M Bonnie NAIL WELTER Unavailable Unavailable LePine, M Bonnie NAIL WELTER Unavailable Unavailable LePine, M Bonnie NAIL WELTER Unavailable Unavailable LePine, M Bonnie NAIL WELTER Unavailable Unavailable LePine, M Bonnie NAIL WELTER Unavailable Unavailable LePine, M Bonnie NAIL WELTER Unavailable Unavailable LePine, M Bonnie NAIL WELTER Unavailable Unavailable LePine, M Bonnie NAIL WELTER Unavailable Unavailable LePine, M Bonnie NAIL WELTER Unavailable Unavailable LePine, M Bonnie NAIL WELTER Unavailable Unavailable LePine, M Bonnie NAIL WELTER Unavailable Unavailable LePine, M Bonnie NAIL WELTER Unavailable Unavailable LePine, M Bonnie NAIL WELTER Unavailable Unavailable LePine, M Bonnie NAIL WELTER Unavailable Unavailable LePine, M Bonnie NAIL WELTER Unavailable Unavailable LePine, M Bonnie NAIL WELTER Unavailable Unavailable LePine, M Bonnie NAIL WELTER Unavailable Unavailable LePine, M Bonnie NAIL WELTER Unavailable Unavailable LePine, M Bonnie NAIL WELTER Unavailable Unavailable LePine, M Bonnie NAIL WELTER Unavailable Unavailable LePine, M Bonnie NAIL WELTER Unavailable Unavailable LePine, M Bonnie NAIL WELTER Unavailable Unavailable LePine, M Bonnie NAIL WELTER Unavailable Unavailable LePine, M Bonnie NAIL WELTER Unavailable Unavailable LePine, M Bonnie NAIL WELTER Unavailable Unavailable LePine, M Bonnie NAIL WELTER Unavailable Unavailable LePine, M Bnonie NAIL WELTER Unavailable Unavailable LePine, M Bonnie NAIL WELTER Unavailable Unavailable LePine, M Bonnie NAIL WELTER Unavailable Unavailable LePine, M Bonnie NAIL WELTER Unavailable Unavailable LePine, M Bonnie NAIL WELTER Unavailable Unavailable Marielena, L Jaleesa NYLON MACHINE OPERATOR Unavailable Unavailable Marielena, L Jaleesa NYLON MACHINE OPERATOR Unavailable Unavailable Marielena, L Jaleesa NYLON MACHINE OPERATOR Unavailable Unavailable Marielena, L Jaleesa NYLON MACHINE OPERATOR Unavailable Unavailable Marielena, L Jaleesa NYLON MACHINE OPERATOR Unavailable Unavailable Marielena, L Jaleesa NYLON MACHINE OPERATOR Unavailable Unavailable Marielena, L Jaleesa NYLON MACHINE OPERATOR Unavailable Unavailable Marielena, L Jaleesa NYLON MACHINE OPERATOR Unavailable Unavailable Marielena, L Jaleesa NYLON MACHINE OPERATOR Unavailable Unavailable Marielena, L Jaleesa NYLON MACHINE OPERATOR Unavailable Unavailable Marielena, L Jaleesa NYLON MACHINE OPERATOR Unavailable Unavailable Marielena, L Jaleesa NYLON MACHINE OPERATOR Unavailable Unavailable Marielena, L Jaleesa NYLON MACHINE OPERATOR Unavailable Unavailable Marielena, L Jaleesa NYLON MACHINE OPERATOR Unavailable Unavailable Marielena, L Jaleesa NYLON MACHINE OPERATOR Unavailable Unavailable Marielena, L Jaleesa NYLON MACHINE OPERATOR Unavailable Unavailable Marielena, L Jaleesa NYLON MACHINE OPERATOR Unavailable Unavailable Marielena, L Jaleesa NYLON MACHINE OPERATOR Unavailable Unavailable Marielena, L Jaleesa NYLON MACHINE OPERATOR Unavailable Unavailable Marielena, L Jaleesa NYLON MACHINE OPERATOR Unavailable Unavailable Marielena, L Jaleesa NYLON MACHINE OPERATOR Unavailable Unavailable Marielena, L Jaleesa NYLON MACHINE OPERATOR Unavailable Unavailable Marielena, L Jaleesa NYLON MACHINE OPERATOR Unavailable Unavailable Marielena, L Jaleesa NYLON MACHINE OPERATOR Unavailable Unavailable Marielena, L Jaleesa NYLON MACHINE OPERATOR Unavailable Unavailable Gabriel CORRAL PA Unavailable Unavailable Gabriel CORRAL PA Unavailable Unavailable Gabriel CORRAL PA Unavailable Unavailable LETTIERE, A JAMES PA Unavailable Unavailable LETTIERE, A JAMES PA Unavailable Unavailable LETTIERE, A JAMES PA Unavailable Unavailable LETTIERE, A JAMES PA Unavailable Unavailable LETTIERE, A JAMES PA Unavailable Unavailable LETTIERE, A JAMES PA Unavailable Unavailable LETTIERE, A JAMES PA Unavailable Unavailable LETTIERE, A JAMES PA Unavailable Unavailable LETTIERE, A JAMES PA Unavailable Unavailable LETTIERE, A JAMES PA Unavailable Unavailable LETTIERE, A JAMES PA Unavailable Unavailable LETTIERE, A JAMES PA Unavailable Unavailable LETTIERE, A JAMES PA Unavailable Unavailable LETTIERE, A JAMES PA Unavailable Unavailable LETTIERE, A JAMES PA Unavailable Unavailable LETTIERE, A JAMES PA Unavailable Unavailable LETTIERE, A JAMES PA Unavailable Unavailable LETTIERE, A JAMES PA Unavailable Unavailable LETTIERE, A JAMES PA Unavailable Unavailable LETTIERE, A JAMES PA Unavailable Unavailable LETTIERE, A JAMES PA Unavailable Unavailable LETTIERE, A JAMES PA Unavailable Unavailable LETTIERE, A JAMES PA Unavailable Unavailable LETTIERE, A JAMES PA Unavailable Unavailable LETTIERE, A JAMES PA Unavailable Unavailable LETTIERE, A JAMES PA Unavailable Unavailable LETTIERE, A JAMES PA Unavailable Unavailable LETTIERE, A JAMES PA Unavailable Unavailable DRAZEK, I ANA CRISTINA PA Unavailable Unavailable DRAZEK, I ANA CRISTINA PA Unavailable Unavailable DRAZEK, I ANA CRISTINA PA Unavailable Unavailable DRAZEK, I ANA CRISTINA PA Unavailable Unavailable DRAZEK, I ANA CRISTINA PA Unavailable Unavailable DRAZEK, I ANA CRISTINA PA Unavailable Unavailable DRAZEK, I ANA CRISTINA PA Unavailable Unavailable DRAZEK, I ANA CRISTINA PA Unavailable Unavailable DRAZEK, I ANA CRISTINA PA Unavailable Unavailable DRAZEK, I ANA CRISTINA PA Unavailable Unavailable DRAZEK, I ANA CRISTINA PA Unavailable Unavailable DRAZEK, I ANA CRISTINA PA Unavailable Unavailable DRAZEK, I ANA CRISTINA PA Unavailable Unavailable DRAZEK, I ANA CRISTINA PA Unavailable Unavailable DRAZEK, I ANA CRISTINA PA Unavailable Unavailable DRAZEK, I ANA CRISTINA PA Unavailable Unavailable DRAZEK, I ANA CRISTINA PA Unavailable Unavailable DRAZEK, I ANA CRISTINA PA Unavailable Unavailable DRAZEK, I ANA CRISTINA PA Unavailable Unavailable DRAZEK, I ANA CRISTINA PA Unavailable Unavailable DRAZEK, I ANA CRISTINA PA Unavailable Unavailable DRAZEK, I ANA CRISTINA PA Unavailable Unavailable DRAZEK, I ANA CRISTINA PA Unavailable Unavailable DRAZEK, I ANA CRISTINA PA Unavailable Unavailable DRAZEK, I ANA CRISTINA PA Unavailable Unavailable DRAZEK, I ANA CRISTINA PA Unavailable Unavailable DRAZEK, I ANA CRISTINA PA Unavailable Unavailable DRAZEK, I ANA CRISTINA PA Unavailable Unavailable DRAZEK, I ANA CRISTINA PA Unavailable Unavailable DRAZEK, I ANA CRISTINA PA Unavailable Unavailable NONE Unavailable Unavailable VanmarieamAsha MD Unavailable Unavailable VaneenmandiamAsha MD Unavailable Unavailable VanAsha shaver MD Unavailable Unavailable VanAsha shaver MD Unavailable Unavailable VanAsha shaver MD Unavailable Unavailable VanmarieamAsha MD Unavailable Unavailable VaneenmandiamAsha MD Unavailable Unavailable VaneenenaamAsha MD Unavailable Unavailable VanAsha shaver MD Unavailable Unavailable VanAsha shaver MD Unavailable Unavailable VanAsha shaver MD Unavailable Unavailable VanmarieamAsha MD Unavailable Unavailable VanAsha shaver MD Unavailable Unavailable VanAsha shaver MD Unavailable Unavailable Asha Felder MD Unavailable Unavailable Asha Felder MD Unavailable Unavailable Asha Felder MD Unavailable Unavailable VanAsha shaver MD Unavailable Unavailable VanAsha shaver MD Unavailable Unavailable VanAsha shaver MD Unavailable Unavailable Asha Felder MD Unavailable Unavailable Asha Felder MD Unavailable Unavailable Asha Felder MD Unavailable Unavailable Asha Felder MD Unavailable Unavailable Asha Felder MD Unavailable Unavailable Asha Felder MD Unavailable Unavailable Asha Felder MD Unavailable Unavailable Asha Felder MD Unavailable Unavailable VanAsha shaver MD Unavailable Unavailable Asha Felder MD Unavailable Unavailable VanAsha shaver MD Unavailable Unavailable Asha Felder MD Unavailable Unavailable VanAsha shaver MD Unavailable Unavailable Asha Felder MD Unavailable Unavailable Asha Felder MD Unavailable Unavailable Asha Felder MD Unavailable Unavailable Asha Felder MD Unavailable Unavailable Asha Felder MD Unavailable Unavailable Asha Felder MD Unavailable Unavailable VanAsha shaver MD Unavailable Unavailable Asha Felder MD Unavailable Unavailable Asha Felder MD Unavailable Unavailable Asha Felder MD Unavailable Unavailable VanAsha shaver MD Unavailable Unavailable VanmarieamAsha MD Unavailable Unavailable Asha Felder MD Unavailable Unavailable PARI, J HAL DPM PC Unavailable Unavailable PARI, J [facility] Unavailable Unavailable PARI, J [facility] Unavailable Unavailable PARI, J [facility] Unavailable Unavailable PARI, [facility] Unavailable Unavailable PARI, [facility] Unavailable Unavailable PARI, [facility] Unavailable Unavailable PARI, [facility] Unavailable Unavailable [facility], [facility] Unavailable Unavailable PARI, [facility] Unavailable Unavailable PARI, [facility] Unavailable Unavailable PARI, J [facility] Unavailable Unavailable PARI, [facility] Unavailable Unavailable PARI, [facility] Unavailable Unavailable [facility]I, [facility] Unavailable Unavailable [facility], [facility] Unavailable Unavailable PARI, J [facility] Unavailable Unavailable PARI, [facility] Unavailable Unavailable PARI, [facility] Unavailable Unavailable PARI, [facility] Unavailable Unavailable [facility], [facility] Unavailable Unavailable [facility], [facility] Unavailable Unavailable [facility], [facility] Unavailable Unavailable [facility], [facility] Unavailable Unavailable [facility], [facility] Unavailable Unavailable [facility] Unavailable Unavailable [facility] Unavailable Unavailable [facility], [facility] Unavailable Unavailable Re-disclosure Warning The records that you are about to access may contain information from federally-assisted alcohol or drug abuse programs. If such information is present, then the following federally mandated warning applies: This information has been disclosed to you from records protected by federal confidentiality rules (42 CFR part 2). The federal rules prohibit you from making any further disclosure of this information unless further disclosure is expressly permitted by the written consent of the person to whom it pertains or as otherwise permitted by 42 CFR part 2. A general authorization for the release of medical or other information is NOT sufficient for this purpose. The Federal rules restrict any use of the information to criminally investigate or prosecute any alcohol or drug abuse patient.The records that you are about to access may contain highly sensitive health information, the redisclosure of which is protected by Article 27-F of the [facility] Public Health law. If you continue you may have access to information: Regarding HIV / AIDS; Provided by facilities licensed or operated by the [facility] Office of Mental Health; or Provided by the [facility] Office for People With Developmental Disabilities. If such information is present, then the following [facility] mandated warning applies: This information has been disclosed to you from confidential records which are protected by state law. State law prohibits you from making any further disclosure of this information without the specific written consent of the person to whom it pertains, or as otherwise permitted by law. Any unauthorized further disclosure in violation of state law may result in a fine or [place] [facility] sentence or both. A general authorization for the release of medical or other information is NOT sufficient authorization for further disc losure. Family History Family Member Name Family Member Gender Family Member Status Date o f Status Description Data Source(s) Unknown Male Problem [facility] ([facility] Unknown Unknown Problem [facility] Unknown Male Problem [facility] Unknown Female Problem [facility] ([facility]) Unknown Male Problem [facility] ([facility] ) Unknown Male Problem [facility] ([facility] ) Encounters Encounter Providers Location Date Indications Data Source(s ) Outpatient Attender: HAL YAÑEZ DPM PCConsultant: NONE 06/14/2021 10:32:00 AM EDT - 06/14/2021 10:32:00 AM EDT [facility] Office Visit Attender: ANA CRISTINA JOHNSON Physical Therapy 2020 11:00:00 AM EDT [facility] ([facility]) Outpatient Attender: Bonnie Villanueva 05/30 09:40:00 AM EDT [facility] ([facility] ) OFFICE OUTPATIENT VISIT 15 MINUTES Attender: ANA CRISTINA JOHNSON Phys ical Therapy 05/29/2021 09:30:00 AM EDT [facility] ([facility]) Outpatient Attender: Bonnie Villanueva 03/28 10:20:00 AM EDT [facility] ([facility] ) Outpatient Attender: HAL YAÑEZ DPM PCConsultant: NONE 03/14/2021 09:23:00 AM EDT - 03/14/2021 09:23:00 AM EDT [facility] Outpatient Attender: ANA CRISTINA JOHNSON Physical Therapy 03/12/2021 1 0:30:00 AM EDT [facility] ([facility]) OFFICE OUTPATIENT VISIT 15 MINUTES Attender: ANA CRISTINA JOHNSON Phys ical Therapy 01/26/2021 10:45:00 AM EDT [facility] ([facility]) Outpatient Attender: JAMES Avendano magali 01/13/2021 11:30:00 AM EDT [facility] ([facility] Outpatient Attender: Jaleesa Gann/Prisca/Bang/Reindl 01/11/2021 11:30:00 AM EDT [facility] ([facility] OFFICE OUTPATIENT VISIT 15 MINUTES Attender: Asha car MD Physical Therapy 12/21/2020 11:00:00 AM EDT [facility] ([facility]) Outpatient Attender: Bonnie Villanueva 12/20 11:00:00 AM EDT [facility] ([facility] ) Outpatient Attender: HAL YAÑEZ DPM PCConsultant: NONE 12/13/2020 09:01:00 AM EDT - 12/13/2020 09:01:00 AM EDT [facility] OFFICE OUTPATIENT VISIT 15 MINUTES Attender: Asha car MD Physical Therapy 11/08/2020 01:00:00 PM EDT [facility] ([facility]) Outpatient Attender: Bonnie Villanueva 09/19 10:20:00 AM EST [facility] ([facility] ) Outpatient Attender: HAL YAÑEZ DPM PCConsultant: NONE 09/14/2020 09:03:00 AM EST - 09/14/2020 09:03:00 AM EST [facility] Office Visit Attender: Asah Felder MD Physical Therap y 08/03/2020 07:45:00 AM EST [facility] ([facility]) Outpatient Attender: Bonnie Villanueva 07/11 09:00:00 AM EST [facility] ([facility] ) Outpatient Attender: [facility] 06/14/2020 08:51:00 AM EDT - 06/14/2020 08:51:00 AM EDT [facility] Immunizations Vaccine Date Status Description Data Source(s) pneumococcal polysaccharide PPV23 03/28/2021 11:04:00 AM EDT jim moura [facility] ([facility]) COVID-19 VACCINE Moderna 11/14/2020 12:00:00 AM EDT completed [facility] Vaccine Series Complete: YESThis Data wa s Submitted to [facility]. COVID-19 VACCINE Moderna 10/17/2020 12:00:00 AM EST completed [facility] Vaccine Series Complete: NOThis Data was Submitted to [facility] [employer]. Influenza, injectable, MDCK, preservative free, popeye valent 07/11/2020 09:44:00 AM EST completed [facility]) Medications Medication Brand Name Start Date Product Form Dose Route Admi nistrative Instructions Pharmacy Instructions Status Indications Reaction Description Data Source(s) 3 ML Sodium Hyaluronate 10 MG/ML Prefilled Syringe [Gel-One] Gel-One 06/06/2021 12:00:00 AM EDT active M EDENT ([facility]) Shingrix Shingrix 03/28/2021 12:00:00 AM EDT activ e MED[facility] ([facility]) Mirtazapine 7.5 MG Oral Tablet Mirtazapine 01/13/2021 12:00:00 AM EDT active [facility] ([facility]) Sertraline 100 MG Oral Tablet Sertraline HCL 01/13/2021 12:00:00 AM EDT active [facility] ([facility]) Rosuvastatin calcium 5 MG Oral Tablet Rosuvastatin Calcium 0 01/13/2021 12:00:00 AM EDT active [facility] ([facility]) Omeprazole 40 MG Delayed Release Oral Capsule Omeprazole 01/13/2021 12:00:00 AM EDT ORAL active [facility] ([facility]) Cephalexin 500 MG Oral Tablet Cephalexin 01/13/2021 12:00:00 AM EDT ORAL active [facility] ([facility]) Hydrocortisone 10 MG/ML / Neomycin 3.5 M G/ML / Polymyxin B 52828 UNT/ML Otic Solution Yksvvlji-Pqptkrvdi-MM 01/13/2021 12:00:00 AM EDT [facility] L[facility] active [facility] ([facility]) Cholecalciferol 5000 UNT Oral Capsule Vitamin D3 Maximum Str ength 12/20/2020 12:00:00 AM EDT active M EDENT ([facility]) Mirtazapine 7.5 MG Oral Tablet Mirtazapine 12/20/2020 12:00:00 AM EDT ORAL active [facility] ([facility]) 24 HR Bupropion Hydrochloride 300 MG Extended Release Oral Tablet Bupropion Hydrochloride ER (XL) 12/20/2020 12:00:00 AM EDT ORAL a ctive [facility] ([facility]) Amlodipine 10 MG Oral Tablet Amlodipine Besylate 12/20/2020 12:00:00 AM EDT ORAL active [facility] ([facility]) Covid-19 vaccine, Unspecified 11/14/2020 12:00:00 AM EDT completed [facility] Medication administered onsite Covid-19 vaccine, Unspecified 10/17/2020 12:00:00 AM EST completed [facility]) Medication administered onsite Acetaminophen 325 MG / Hydrocodone Bitartrate 5 MG Ora l Tablet Hydrocodone Bitartrate/Acetaminophen 07/24/2020 12:00:00 AM EST ORAL active [facility] ([facility] Administration Of Flu Vaccine 07/11/2020 12:00:00 AM EST completed [facility]) Medication administered onsite Insurance Providers Payer name Policy type / Coverage type Policy ID Covered alliance party ID Covered alliance party's relationship to [place]aneg[place] Policy [place] Plan Information MEDICARE [id number] SP [id number] A MEDICARE [id number] SP [id number] A [address] SHANE ROMERO [id number] JOHN KIM [facility] [id number] Self [id number] [place] Primary [id number] Self [id number] A MEDICARE [id number] SP [id number] A MEDICARE [id number] SP [id number] [address] [address] [place] UNAVAILABLE [id number] [place] [address] [address] [place] O UNAVAILABLE [id number] [place] MEDICARE BLUE [address]PO [address] [id number] SP [id number] [place]/307 [id number] SP [id number] [place] 306/806 [id number] SP [id number] [place] Med[place] Part B [id number] Self [id number] [place] Med[place] Part B [id number] Self [id number] [place] Med[place] Part [place] [id number] Self [id number] Medicare [place] Primary [id number] ..[id number] Self [id number] [place] Medigap Part [place] [id number] Self [id number] [place] Medicare Primary [id number] Self [id number] BS [place] Medigap Part B [id number] Self [id number] [place] Medicare Primary [id number] Self [id number] BS [place] Medigap Part B [id number] Self [id number] [place] Medicare Primary [id number] Self [id number] Medicare [place] Medicare Primary [id number] Self [id number] [place] Medigap Part B [id number] Self [id number] Medicare [place] Medicare Primary [id number] Self [id number] BS [place] Med[place]ap Part [place] [id number] Self [id number] BS [place] Med[place]ap Part B [id number] Self [id number] [place] Medicare Primary [id number] Self [id number] BS [place] Medigap Part B [id number] Self [id number] [place] Medicare Primary [id number] Self [id number] BS [place] [facility] Part B [id number] Self [id number] Medicare [place] Medicare Primary [id number] Self [id number] [facility] [place] [facility] [id number] [id number] Self [id number] Medicare [place] Medicare Primary [id number] [id number] Self [id number] [facility] [place] [facility] [id number] [id number] Self [id number] Medicare [place] Medicare Primary [id number] Self [id number] [facility] [place] [facility] [id number] [id number] Self [id number] Medicare [place] Medicare Primary [id number] [id number] Self [id number] [facility] [place] [facility] [id number] 2.0.1.387[id number] Self [id number] Medicare [place] Medicare Primary [id number] Self [id number] [facility] [id number] Self [id number] Medicare [place] Medicare Primary [id number] Self [id number] BS [place] [facility] Part B [id number]. [id number] Self Medicare [place] Medicare Primary [id number] Self [place] 302/307 [id number] SP [id number] Medicare [place]/NGS Medicare Primary [id number] Self [id number] [place] 306/806 [id number] SP [id number] MEDICARE [id number] SP [id number] A [place] 306/806 [id number] SP [id number] MEDICARE [id number] SP [id number] A MEDICARE C [id number] S [id number] MEDICARE PART A [facility] [id number] 18 [id number] [employer]UE [place] [employer] [place] [id number] BCBS [place] UNAVAILABLE UNAVAILABLE BCBS [place] [id number] SP [id number] MEDICARE PART A -O/P [id number] 18 [id number] MEDICARE C [id number] S [id number] A [facility] Part B [id number] Self [id number] [facility] Medigap Part B [id number] Self [place] Medicare Primary [id number] Self [facility] B [id number] S VYY [id number] [id number] [place] Medicare Primary [id number] Self Medicare - [place] Medicare Primary [id number] Self [id number] [facility] B [id number] S VYY [id number] [place] 306/806 [id number] SP [id number] Medicare - [place] Medicare Primary [id number] Self 0 [id number] [facility] [id number] Self [id number] [place] Medicare Primary [id number] Self [id number] MEDICARE C [id number] S [id number] A [place] PPO 302/307 [id number] SP [id number] Problems, Conditions, and Diagnoses Code Display Name Description Problem Type Effective Dates Data Source(s) 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 06/14/2021 10:32: 00 AM EDT [facility] L84 Corns and callosities Corns and callosities Diagnosis 06/14/2021 10:32:00 AM EDT [facility] M2040 Other hammer toe(s) (acquired), unspecif ied foot Other hammer toe(s) (acquired), unspecified foot Diagnosis 06/14/2021 10:32:00 AM EDT [facility] 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, bilateral legs Unspecified atherosclerosis of inaja ar teries of extremities, bilateral legs Diagnosis 06/14/2021 10:32:00 AM EDT [facility] [id number] Pain in left foot Pain in left foot Diagnosis 06/14/2020 08:51:00 AM EDT [facility] [id number] Pain in right foot Pain in right foot Diagnosis 08:51:00 AM EDT [facility] Surgeries/Procedures Procedure Description Date Indications Data Source(s) ARTHROCENTESIS ASPIR&/INJECTION MAJOR JT/BURSA 12:00:00 AM EDT [facility] ([facility] ) OFFICE OUTPATIENT VISIT 15 MINUTES 05/30/2021 12:00:00 AM EDT [facility] ([facility]) ARTHROCENTESIS ASPIR&/INJECTION MAJOR JT/BURSA 12:00:00 AM EDT [facility] ([facility] ) OFFICE OUTPATIENT VISIT 15 MINUTES 05/29/2021 12:00:00 AM EDT [facility] ([facility] ) Chronic Care Management Services Ea Addl 20 Min 2020 12:00:00 AM EDT [facility] ([facility]) Chronic Care MGMT 20 Mins Clinical Staff Time Per Calendar M ont 05/04/2021 12:00:00 AM EDT [facility] ([facility] ) Chronic Care MGMT 20 Mins Clinical Staff Time Per Calendar M [facility] 04/04/2021 12:00:00 AM EDT [facility] ([facility] ) OFFICE OUTPATIENT VISIT 25 MINUTES 03/28/2021 12:00:00 AM EDT [facility] ([facility]) Pare Hyperkeratotic Lesion, 2-4 03/14/2021 12:00:00 AM EDT [facility] ([facility]) ARTHROCENTESIS ASPIR&/INJECTION MAJOR JT/BURSA 12:00:00 AM EDT [facility] ([facility] ) RADIOLOGIC EXAM KNEE COMPLETE 4/MORE VIEWS 03/12/2021 12:00:00 AM EDT [facility] ([facility]) OFFICE OUTPATIENT VISIT 25 MINUTES 03/12/2021 12:00:00 AM EDT [facility] ([facility] ) RADIOLOGIC EXAM KNEE COMPLETE 4/MORE VIEWS 03/12/2021 12:00:00 AM EDT [facility] ([facility] ) Chronic Care MGMT 20 Mins Clinical Staff Time Per Calendar M [facility] 03/02/2021 12:00:00 AM EDT [facility] ([facility] ) OFFICE OUTPATIENT VISIT 15 MINUTES 01/26/2021 12:00:00 AM EDT [facility] ([facility] ) OFFICE OUTPATIENT VISIT 25 MINUTES 01/26/2021 12:00:00 AM EDT [facility] ([facility] ) Chronic Care Management Services Ea Addl 20 Min 2020 12:00:00 AM EDT [facility] ([facility]) Chronic Care MGMT 20 Mins Clinical Staff Time Per Calendar M [facility] 01/22/2021 12:00:00 AM EDT [facility] ([facility] ) MANUAL THERAPY TQS 1/> REGIONS EACH 15 MINUTES 12:00:00 AM EDT [facility] ([facility] ) MANUAL THERAPY TQS 1/> REGIONS EACH 15 MINUTES 12:00:00 AM EDT [facility] ([facility] ) THERAPEUTIC PX 1/> AREAS EACH 15 MIN EXERCISES 12:00:00 AM EDT [facility] ([facility] ) X-Ray Femur Minimum 2 Views 12/21/2020 12:00:00 AM EDT [facility] ([facility] ) Ultrasound, Each 15 Min, Constant Attendance 12:00:00 AM EDT [facility] ([facility] ) OFFICE OUTPATIENT VISIT 15 MINUTES 12/21/2020 12:00:00 AM EDT [facility] ([facility] ) OFFICE OUTPATIENT VISIT 25 MINUTES 12/20/2020 12:00:00 AM EDT [facility] ([facility]) Chronic Care Management Services Ea Addl 20 Min 2020 12:00:00 AM EDT [facility] ([facility]) Chronic Care MGMT 20 Mins Clinical Staff Time Per Calendar M [facility] 12/18/2020 12:00:00 AM EDT [facility] ([facility] ) THERAPEUTIC PX 1/> AREAS EACH 15 MIN EXERCISES 12:00:00 AM EDT [facility] ([facility] ) MANUAL THERAPY TQS 1/> REGIONS EACH 15 MINUTES 12:00:00 AM EDT [facility] ([facility] ) THERAPEUTIC PX 1/> AREAS EACH 15 MIN EXERCISES 12:00:00 AM EDT [facility] ([facility] ) MANUAL THERAPY TQS 1/> REGIONS EACH 15 MINUTES 12:00:00 AM EDT [facility] ([facility]) Pare Hyperkeratotic Lesion, 2-4 12/13/2020 12:00:00 AM EDT [facility] ([facility]) OFFICE OUTPATIENT VISIT 10 MINUTES 12/13/2020 12:00:00 AM EDT [facility] ([facility]) THERAPEUTIC PX 1/> AREAS EACH 15 MIN EXERCISES 12:00:00 AM EDT [facility] ([facility] ) MANUAL THERAPY TQS 1/> REGIONS EACH 15 MINUTES 021 12:00:00 AM EDT [facility] ([facility] ) THERAPEUTIC PX 1/> AREAS EACH 15 MIN EXERCISES 021 12:00:00 AM EDT [facility] ([facility] ) MANUAL THERAPY TQS 1/> REGIONS EACH 15 MINUTES 021 12:00:00 AM EDT [facility] ([facility] ) ARTHROCENTESIS ASPIR&/INJECTION MAJOR JT/BURSA 12:00:00 AM EDT [facility] ([facility] ) THERAPEUTIC PX 1/> AREAS EACH 15 MIN EXERCISES 021 12:00:00 AM EDT [facility] ([facility] ) MANUAL THERAPY TQS 1/> REGIONS EACH 15 MINUTES 021 12:00:00 AM EDT [facility] ([facility] ) ARTHROCENTESIS ASPIR&/INJECTION MAJOR JT/BURSA 021 12:00:00 AM EDT [facility] ([facility] ) Physical Therapy Eval - Low Complexity 11/21/2020 12:0 0:00 AM EDT [facility] ([facility] ) Chronic Care Management Services Ea Addl 20 Min 2020 12:00:00 AM EDT [facility] ([facility]) Chronic Care MGMT 20 Mins Clinical Staff Time Per Calendar M [facility] 11/15/2020 12:00:00 AM EDT [facility] ([facility] ) ARTHROCENTESIS ASPIR&/INJECTION MAJOR JT/BURSA 021 12:00:00 AM EDT [facility] ([facility] ) X-Ray Hip Unilateral With Pelvis 2-3 Views 11/08/2020 12:00:00 AM EDT [facility] ([facility] ) OFFICE OUTPATIENT VISIT 15 MINUTES 11/08/2020 12:00:00 AM EDT [facility] ([facility] ) X-Ray Hip Unilateral With Pelvis 2-3 Views 09/19/2020 12:00:00 AM EST [facility] ([facility] ) REMOVAL IMPLANT DEEP 07/24/2020 12:00:00 AM EST [facility] ([facility]) ECG ROUTINE ECG W/LEAST 12 LDS W/I&R 07/11/2020 12:00: 00 AM EST [facility] ([facility]) Pare Hyperkeratotic Lesion, 2-4 06/14/2020 12:00:00 AM EDT [facility] ([facility]) ARTHROCENTESIS ASPIR&/INJECTION MAJOR JT/BURSA 020 12:00:00 AM EDT [facility] ([facility] ) Results ID Date Data Source [id number] 03/28/2021 11:06:00 AM EDT [facility] ([facility]) Name Value Range Interpretation Code Description Data Alia rce(s) Supporting Document(s) Urate [Mass/volume] in Serum or Plasma 3.6 mg/dL 2.6-6.0 [facility] ([facility]) ID Date Data Source [id number] 03/28/2021 11:05:00 AM EDT [facility] ([facility]) Name Value Range Interpretation Code Description Data Alia rce(s) Supporting Document(s) Thyrotropin [Units/volume] in Serum or Plasma by Detec tion limit <= 0.05 mIU/L 1.38 uIU/mL 0.36-3.74 [facility] ([facility] ) ID Date Data Source [id number] 03/28/2021 11:05:00 AM EDT [facility] ([facility]) Name Value Range Interpretation Code Description Data Alia rce(s) Supporting Document(s) Cholesterol [Mass/volume] in Serum or Plasma 179 mg/dL 131-200 [facility] ([facility]) Cholesterol in HDL [Mass/volume] in Serum or Plasma 73 mg/dL 35-60 [facility] ([facility]) Triglyceride [Mass/volume] in Serum or Plasma 101 mg/dL 30-150 [facility] ([facility]) Cholesterol in LDL [Mass/volume] in Serum or Plasma by calcu lation 86 CALC 50-159 [facility] ([facility]) ID Date Data Source [id number] 03/28/2021 11:05:00 AM EDT [facility] ([facility]) Name Value Range Interpretation Code Description Data Alia rce(s) Supporting Document(s) Glucose [Mass/volume] in Serum or Plasma 84 mg/dL 74-99 [facility] ([facility]) 100-125 mg/dL PRE-DIABETES/FASTING >126 mg/dL DIABETES/FASTING Urea nitrogen [Mass/volume] in Serum or Plasma 26 mg/dL 7-18 [facility] ([facility]) Creatinine 1.1 mg/dL 0.6-1.3 [facility] Sodium [Moles/volume] in Serum or Plasma 139 meq/L 136-145 [facility] ([facility]) Potassium [Moles/volume] in Serum or Plasma 4.7 meq/L 3.5-5.1 [facility] ([facility]) Carbon dioxide, total [Moles/volume] in Serum or Plasma 32 meq/L 21 -32 [facility] ([facility]) Chloride [Moles/volume] in Serum or Plasma 100 meq/L 98-107 [facility] ([facility]) Glomerular filtration rate/1.73 sq M pre dicted among non-blacks [Volume Rate/Area] in Serum or Plasma by Creatinine-based formula (MDRD) 47 mL/min [facility] ([facility]) Calcium [Mass/volume] in Serum or Plasma 9.9 mg/dL 8.5-10.1 [facility] ([facility]) Glomerular filtration rate/1.73 sq M pre dicted among blacks [Volume Rate/Area] in Serum or Plasma by Creatinine-based formula (MDRD) 57 mL/min [facility] ([facility]) <content>CHRONIC KIDNEY DISEASE STAGING PER NKF</content>
<content></content>
<content>STAGE I & II GFR >= 60 NORMAL TO MILDLY DECREASED</content>
<content>STAGE III GFR 30-59 MODERATELY DECREASED</content>
<content>STAGE IV GFR 15-29 SEVERELY DECREASED</content>
<content>STAGE V GFR <15 VERY LITTLE GFR LEFT</content>
<content>ESRD GFR <15 ON SOAKER SODA WORKER</content>
<content></content> ID Date Data Source [id number] 03/28/2021 11:05:00 AM EDT [facility] Name Value Range Interpretation Code Description Data Alia rce(s) Supporting Document(s) Erythrocytes [#/volume] in Blood by Automated count 3.83 x10*6/UL 4.2 0-6.30 [facility] ([facility]) Leukocytes [#/volume] in Blood by Automated count 6.9 x10*3/UL 4.1-10 .9 [facility] ([facility]) NOTE: CBC VERIFIED Hematocrit [Volume Fraction] of Blood by Automated count 34.9 % 3 7.0-51.0 [facility] ([facility]) Hemoglobin [Mass/volume] in Blood 11.8 g/dL 12.0-18.0 [facility] ([facility]) MCV 91.1 fL 80.0-97.0 [facility]) MCHC 33.8 g/dL 31.0-38.0 [facility]) Erythrocyte distribution width [Ratio] by Automated count 13.0 % 11.6-13.7 [facility] ([facility]) MCH 30.8 pg 26.0-32.0 [facility]) Platelets [#/volume] in Blood by Automated count 245 x10*3/UL 140-440 [facility] ([facility]) MPV 6.9 FL 7.8-11.0 [facility] Neut % 82.5 % 37.0-92.0 [facility] Lymph % 13.0 % 10.0-58.5 [facility] Mid % 4.5 % 1.7-9.3 [facility] Lymph # 0.9 x10*3/UL 0.6-4.1 [facility] ([facility]) Neut # 5.7 x10*3/UL 2.0-7.8 [facility] ([facility]) Mid # 0.3 x10*3/UL 0.1-0.6 [facility] ([facility]) ID Date Data Source [id number] 12/20/2020 12:25:00 PM EDT [facility] ([facility]) Name Value Range Interpretation Code Description Data Alia rce(s) Supporting Document(s) Glucose [Mass/volume] in Serum or Plasma 98 mg/dL 74-99 [facility] ([facility]) 100-125 mg/dL PRE-DIABETES/FASTING >126 mg/dL DIABETES/FASTING Urea nitrogen [Mass/volume] in Serum or Plasma 18 mg/dL 7-18 [facility] ([facility]) Potassium [Moles/volume] in Serum or Plasma 4.5 meq/L 3.5-5.1 [facility] ([facility]) Creatinine 0.9 mg/dL 0.6-1.3 [facility] ([facility]) Sodium [Moles/volume] in Serum or Plasma 138 meq/L 136-145 [facility] ([facility]) Chloride [Moles/volume] in Serum or Plasma 98 meq/L 98-107 [facility] ([facility]) Carbon dioxide, total [Moles/volume] in Serum or Plasma 31 meq/L 21 -32 [facility] ([facility]) Calcium [Mass/volume] in Serum or Plasma 9.7 mg/dL 8.5-10.1 [facility] ([facility]) Total Bilirubin 0.4 mg/dL 0.2-1.0 [facility] ([facility]) Alkaline phosphatase isoenzyme [Units/volume] in Serum or Pl asma 61 mg/dL 46-116 [facility] ([facility]) Aspartate aminotransferase [Enzymatic activity/volume] in Serum or Plasma 23 U/L 15-37 [facility] ([facility] ) Alanine aminotransferase [Enzymatic activity/volume] in Seru m or Plasma 24 U/L 12-78 [facility] ([facility]) Albumin [Mass/volume] in Serum or Plasma 4.9 g/dL 3.4-5.0 [facility] ([facility]) Proteinase 3 Ab [Units/volume] in Serum 7.5 g/dL 6.4-8.2 [facility] ([facility]) Glomerular filtration rate/1.73 sq M pre dicted among non-blacks [Volume Rate/Area] in Serum or Plasma by Creatinine-based formula (MDRD) 59 mL/min [facility] A/G Ratio 1.88 CALC 1.00-1.90 [facility] Glomerular filtration rate/1.73 sq M pre dicted among blacks [Volume Rate/Area] in Serum or Plasma by Creatinine-based formula (MDRD) Laboratory test result [facility] <content>CHRONIC KIDNEY DISEASE STAGING PER NKF</content>
<content></content>
<content>STAGE I & II GFR >= 60 NORMAL TO MILDLY DECREASED</content>
<content>STAGE III GFR 30-59 MODERATELY DECREASED</content>
<content>STAGE IV GFR 15-29 SEVERELY DECREASED</content>
<content>STAGE V GFR <15 VERY LITTLE GFR LEFT</content>
<content>ESRD GFR <15 ON SOAKER SODA WORKER</content>
<content></content> ID Date Data Source [id number] 09/19/2020 12:19:00 PM EST [facility] ([facility]) Name Value Range Interpretation Code Description Data Alia rce(s) Supporting Document(s) Cobalamin (Vitamin B12) [Mass/volume] in Serum or Plasma 579 pg/mL 2 47-911 [facility] ([facility]) VITAMIN B12 NORMAL RANGE NORMAL 247 - 911 PG/ML INDETERMINATE 211 - 246 PG/ML DEFICIENT LESS THAN 211 PG/ML ID Date Data Source [id number] 09/19/2020 12:18:00 PM EST [facility] ([facility]) Name Value Range Interpretation Code Description Data Alia rce(s) Supporting Document(s) Thyrotropin [Units/volume] in Serum or Plasma by Detec tion limit <= 0.05 mIU/L 2.17 uIU/mL 0.36-3.74 [facility] ([facility] ) ID Date Data Source [id number] 09/19/2020 12:18:00 PM EST [facility] ([facility]) Name Value Range Interpretation Code Description Data Alia rce(s) Supporting Document(s) Urea nitrogen [Mass/volume] in Serum or Plasma 20 mg/dL 7-18 [facility] ([facility]) Glucose [Mass/volume] in Serum or Plasma 115 mg/dL 74-99 [facility] ([facility]) 100-125 mg/dL PRE-DIABETES/FASTING >126 mg/dL DIABETES/FASTING Creatinine 1.1 mg/dL 0.6-1.3 [facility] Potassium [Moles/volume] in Serum or Plasma 4.2 meq/L 3.5-5.1 [facility] ([facility]) Sodium [Moles/volume] in Serum or Plasma 142 meq/L 136-145 [facility] ([facility]) Chloride [Moles/volume] in Serum or Plasma 102 meq/L 98-107 [facility] ([facility]) Calcium [Mass/volume] in Serum or Plasma 9.7 mg/dL 8.5-10.1 [facility] ([facility]) Carbon dioxide, total [Moles/volume] in Serum or Plasma 29 meq/L 21 -32 [facility] ([facility]) Glomerular filtration rate/1.73 sq M pre dicted among non-blacks [Volume Rate/Area] in Serum or Plasma by Creatinine-based formula (MDRD) 47 mL/min [facility] ([facility]) Glomerular filtration rate/1.73 sq M pre dicted among blacks [Volume Rate/Area] in Serum or Plasma by Creatinine-based formula (MDRD) 57 mL/min [facility] ([facility]) <content>CHRONIC KIDNEY DISEASE STAGING PER NKF</content>
<content></content>
<content>STAGE I & II GFR >= 60 NORMAL TO MILDLY DECREASED</content>
<content>STAGE III GFR 30-59 MODERATELY DECREASED</content>
<content>STAGE IV GFR 15-29 SEVERELY DECREASED</content>
<content>STAGE V GFR <15 VERY LITTLE GFR LEFT</content>
<content>ESRD GFR <15 ON SOAKER SODA WORKER</content>
<content></content> ID Date Data Source [id number] 09/19/2020 12:18:00 PM EST [facility] ([facility]) Name Value Range Interpretation Code Description Data Alia rce(s) Supporting Document(s) Leukocytes [#/volume] in Blood by Automated count 5.1 x10*3/UL 4.1-10 .9 [facility] ([facility]) Erythrocytes [#/volume] in Blood by Automated count 3.96 x10*6/UL 4.2 0-6.30 [facility] Hemoglobin [Mass/volume] in Blood 12.3 g/dL 12.0-18.0 [facility] MCV 90.8 fL 80.0-97.0 [facility]) Hematocrit [Volume Fraction] of Blood by Automated count 36.0 % 3 7.0-51.0 [facility] ([facility]) MCH 31.1 pg 26.0-32.0 [facility] ([facility]) Erythrocyte distribution width [Ratio] by Automated count 13.0 % 11.6-13.7 [facility] ([facility]) MCHC 34.2 g/dL 31.0-38.0 [facility]) Platelets [#/volume] in Blood by Automated count 227 x10*3/UL 140-440 [facility] ([facility]) MPV 6.9 FL 7.8-11.0 [facility]) Neut % 77.5 % 37.0-92.0 [facility]) Lymph % 17.4 % 10.0-58.5 [facility] ([facility]) Mid % 5.1 % 1.7-9.3 [facility] ([facility]) Neut # 3.9 x10*3/UL 2.0-7.8 [facility] ([facility]) Lymph # 0.8 x10*3/UL 0.6-4.1 [facility] ([facility]) Mid # 0.4 x10*3/UL 0.1-0.6 [facility] ([facility]) ID Date Data Source [id number] 07/19/2020 11:15:00 AM EST [facility] Name Value Range Interpretation Code Description Data Alia rce(s) Supporting Document(s) SARS coronavirus 2 RNA [facility] This lab was ordered by [facility] and reported by [facility]. ID Date Data Source [id number] 07/11/2020 11:13:00 AM EST [facility] ([facility] Name Value Range Interpretation Code Description Data Alia rce(s) Supporting Document(s) Urine Color Laboratory test result [facility] Urine Appearance Laboratory test result Abnormal (applies to non-numeric results) [facility] Specific gravity of Urine 1.010 1.005-1.030 [facility] Urine PH 6.5 units 5.0-9.0 [facility]) Urine Leukocytes Laboratory test result Abnormal (applies to non-numeric results) [facility] ([facility]) Urine Blood Laboratory test result [facility] ([facility]) Urine Protein Laboratory test result 0-0 [facility] Urine Nitrite Laboratory test result [facility] ([facility]) Glucose [Presence] in Urine Laboratory test result [facility] ([facility]) Urine Ketone Laboratory test result [facility] ([facility]) Bilirubin.total [Mass/volume] in Serum or Plasma Laboratory test resu lt [facility] ([facility]) Urine Urobilinogen 0.2 mg/dL 0.2-1.0 [facility] ([facility]) ID Date Data Source [id number] 07/11/2020 11:13:00 AM EST [facility] ([facility]) Name Value Range Interpretation Code Description Data Alia rce(s) Supporting Document(s) Urea nitrogen [Mass/volume] in Serum or Plasma 23 mg/dL 7-18 [facility] ([facility]) Glucose [Mass/volume] in Serum or Plasma 78 mg/dL 74-99 [facility] ([facility]) 100-125 mg/dL PRE-DIABETES/FASTING >126 mg/dL DIABETES/FASTING Potassium [Moles/volume] in Serum or Plasma 4.3 meq/L 3.5-5.1 [facility] ([facility]) Sodium [Moles/volume] in Serum or Plasma 141 meq/L 136-145 [facility] ([facility]) Creatinine 1.0 mg/dL 0.6-1.3 [facility] Calcium [Mass/volume] in Serum or Plasma 9.8 mg/dL 8.5-10.1 [facility] ([facility]) Carbon dioxide, total [Moles/volume] in Serum or Plasma 32 meq/L 21 -32 [facility] ([facility]) Chloride [Moles/volume] in Serum or Plasma 103 meq/L 98-107 [facility] ([facility]) Aspartate aminotransferase [Enzymatic activity/volume] in Serum or Plasma 17 U/L 15-37 [facility] ([facility] ) Alkaline phosphatase isoenzyme [Units/volume] in Serum or Pl asma 51 mg/dL 46-116 [facility] ([facility]) Total Bilirubin 0.5 mg/dL 0.2-1.0 [facility] ([facility]) Alanine aminotransferase [Enzymatic activity/volume] in Seru m or Plasma 18 U/L 12-78 [facility] ([facility]) Proteinase 3 Ab [Units/volume] in Serum 6.9 g/dL 6.4-8.2 [facility] ([facility]) Albumin [Mass/volume] in Serum or Plasma 4.4 g/dL 3.4-5.0 [facility] ([facility]) A/G Ratio 1.76 CALC 1.00-1.90 [facility] ([facility]) Glomerular filtration rate/1.73 sq M pre dicted among non-blacks [Volume Rate/Area] in Serum or Plasma by Creatinine-based formula (MDRD) 53 mL/min [facility] Glomerular filtration rate/1.73 sq M pre dicted among blacks [Volume Rate/Area] in Serum or Plasma by Creatinine-based formula (MDRD) Laboratory test result [facility] <content>CHRONIC KIDNEY DISEASE STAGING PER NKF</content>
<content></content>
<content>STAGE I & II GFR >= 60 NORMAL TO MILDLY DECREASED</content>
<content>STAGE III GFR 30-59 MODERATELY DECREASED</content>
<content>STAGE IV GFR 15-29 SEVERELY DECREASED</content>
<content>STAGE V GFR <15 VERY LITTLE GFR LEFT</content>
<content>ESRD GFR <15 ON SOAKER SODA WORKER</content>
<content></content> ID Date Data Source [id number] 07/11/2020 11:13:00 AM EST [facility] ([facility]) Name Value Range Interpretation Code Description Data Alia rce(s) Supporting Document(s) Leukocytes [#/volume] in Blood by Automated count 5.9 x10*3/UL 4.1-10 .9 [facility] ([facility]) Hemoglobin [Mass/volume] in Blood 11.8 g/dL 12.0-18.0 [facility] ([facility]) Erythrocytes [#/volume] in Blood by Automated count 3.76 x10*6/UL 4.2 0-6.30 [facility] ([facility]) MCV 90.2 fL 80.0-97.0 [facility] MCH 31.4 pg 26.0-32.0 [facility] Hematocrit [Volume Fraction] of Blood by Automated count 33.9 % 3 7.0-51.0 [facility] ([facility]) MCHC 34.8 g/dL 31.0-38.0 [facility] Platelets [#/volume] in Blood by Automated count 223 x10*3/UL 140-440 [facility] ([facility]) Erythrocyte distribution width [Ratio] by Automated count 12.5 % 11.6-13.7 [facility] ([facility]) MPV 6.6 FL 7.8-11.0 [facility] ([place] [facility] Lymph % 19.5 % 10.0-58.5 [facility] ([place] [facility] Mid % 5.9 % 1.7-9.3 [facility] ([place] [facility] Neut % 74.6 % 37.0-92.0 [facility] ([place] [facility]) Mid # 0.4 x10*3/UL 0.1-0.6 [facility] ([facility]) Lymph # 1.1 x10*3/UL 0.6-4.1 [facility] ([facility]) Neut # 4.4 x10*3/UL 2.0-7.8 [facility] ([facility]) Procedure Social History Code Duration Value Status Description Data Source(s ) Smoking 03/14/2021 12:00:00 AM EDT Never Smoked A Pipe complet ed Never Smoked A Pipe [facility] ([facility]) Smoking 01/13/2021 12:00:00 AM EDT Patient has never smoked co mpleted Patient has never smoked [facility] ([place] [facility]) Smoking 01/11/2021 12:00:00 AM EDT Patient has never smoked co mpleted Patient has never smoked [facility] ([facility], ) Vital Signs ID Date Data Source UNK Name Value Range Interpretation Code Description Data Source(s) Systolic blood pressure 134 mm[Hg] 134 mm[Hg] M EDENT ([facility]) Diastolic blood pressure 70 mm[Hg] 70 mm[Hg] [facility] ([facility]) Heart rate 74 /min 74 /min [facility] ([facility]) Body mass index (BMI) [Ratio] 22.3 kg/m2 22.3 k g/m2 [facility] ([facility]) Body height 61 [in_i] 61 [in_i] [facility] ([facility]) 5'1" Body weight 118.00 [lb_av] 118.00 [lb_av] MEDEN T ([facility]) Oxygen saturation in Arterial blood by Pulse oximetry 95 % 95 % [facility] Systolic blood pressure 130 mm[Hg] 130 mm[Hg] [facility] Diastolic blood pressure 70 mm[Hg] 70 mm[Hg] [facility]) Heart rate 66 /min 66 /min [facility] ([facility]) Body height 61 [in_i] 61 [in_i] [facility] ([facility]) 5'1" Body weight 118.12 [lb_av] 118.12 [lb_av] MEDEN T ([facility]) Oxygen saturation in Arterial blood by Pulse oximetry 98 % 98 % [facility]) Air Body mass index (BMI) [Ratio] 22.3 kg/m2 22.3 k g/m2 [facility] ([facility]) Body height 63 [in_i] 63 [in_i] [facility] ([facility]) 5'3" Oxygen saturation in Arterial blood by Pulse oximetry 98 % 98 % [facility] ([facility], [facility]) Systolic blood pressure 160 mm[Hg] 160 mm[Hg] [facility]) Diastolic blood pressure 74 mm[Hg] 74 mm[Hg] [facility] ([facility], [facility]) Heart rate 64 /min 64 /min [facility] ([facility], [facility]) Respiratory rate 16 /min 16 /min [facility] ( [facility], [facility]) Body temperature 97.8 [degF] 97.8 [degF] [facility] ([place] [facility]) Body weight 130.00 [lb_av] 130.00 [lb_av] MEDEN T ([facility]) Body mass index (BMI) [Ratio] 23.0 kg/m2 23.0 k g/m2 [facility] ([facility]) Body height 63 [in_i] 63 [in_i] [facility] ([facility]) 5'3" Heart rate 76 /min 76 /min [facility] ([facility]) Systolic blood pressure 124 mm[Hg] 124 mm[Hg] [facility] Diastolic blood pressure 78 mm[Hg] 78 mm[Hg] [facility] ([facility]) Oxygen saturation in Arterial blood by Pulse oximetry 96 % 96 % [facility] ([facility]) Body temperature 96.8 [degF] 96.8 [degF] [facility] ([facility]) ( freind) Body weight 124.00 [lb_av] 124.00 [lb_av] [facility] ([facility]) Body mass index (BMI) [Ratio] 22.0 kg/m2 22.0 k g/m2 [facility] ([facility]) [place] body weight 115 [lb_av] 115 [lb_av] [facility] ([facility]) Body weight 56.246 kg 56.246 kg [facility] ([facility]) Body surface area Derived from formula 1.58 m2 1.58 m2 [facility] ([facility]) Heart rate 82 /min 82 /min [facility] ([facility]) Systolic blood pressure 144 mm[Hg] 144 mm[Hg] [facility] Diastolic blood pressure 80 mm[Hg] 80 mm[Hg] [facility] ([facility]) Oxygen saturation in Arterial blood by Pulse oximetry 96 % 96 % [facility] ([facility]) Body mass index (BMI) [Ratio] 23.0 kg/m2 23.0 k g/m2 [facility] ([facility]) Body height 61 [in_i] 61 [in_i] [facility] ([facility]) 5'1" Body weight 122.00 [lb_av] 122.00 [lb_av] [facility] ([facility]) Body height 61.5 [in_i] 61.5 [in_i] [facility] ([facility] ) 5'1.50" Body mass index (BMI) [Ratio] 23.0 kg/m2 23.0 k g/m2 [facility] ([facility] ) Body temperature 96.8 [degF] 96.8 [degF] [facility] ([facility] ) Body weight 123.50 [lb_av] 123.50 [lb_av] [facility] T ([facility] ) Body temperature 97.1 [degF] 97.1 [degF] [facility] ([facility] ) Heart rate 72 /min 72 /min [facility] ([facility]) Systolic blood pressure 156 mm[Hg] 156 mm[facility] Diastolic blood pressure 80 mm[Hg] 80 mm[Hg] [facility] ([facility]) Body height 61 [in_i] 61 [in_i] [facility] ([facility]) 5'1" Body weight 134.00 [lb_av] 134.00 [lb_av] [facility] T ([facility]) Oxygen saturation in Arterial blood by Pulse oximetry 98 % 98 % [facility] ([facility]) Body mass index (BMI) [Ratio] 25.3 kg/m2 25.3 k g/m2 [facility] ([facility]) Body temperature 95.3 [degF] 95.3 [degF] [facility] ([facility] ) Body mass index (BMI) [Ratio] 24.7 kg/m2 24.7 k g/m2 [facility] ([facility]) Body height 61 [in_i] 61 [in_i] [facility] ([facility]) 5'1" Heart rate 77 /min 77 /min [facility] ([facility]) Body weight 131.00 [lb_av] 131.00 [lb_av] MED[facility] T ([facility]) Oxygen saturation in Arterial blood by Pulse oximetry 97 % 97 % [facility] ([facility]) Systolic blood pressure 190 mm[Hg] 190 mm[Hg] [facility] Diastolic blood pressure 84 mm[Hg] 84 mm[Hg] [facility]UL[facility] ([facility]) Body temperature 97.1 [degF] 97.1 [degF] [facility] ([facility] )
[2021-07-10 05:29] LABS: BASO % 0.3 % (0.0-1.0); EOS % 0.1 % (0.0-3.0); HEMATOCRIT 32.6 % (36.0-47.0); HEMOGLOBIN 10.5 g/dl (12.0-15.5); LYMPH # 0.5 10^3/uL (1.5-5.0); LYMPH % 5.8 % (24.0-44.0); MEAN CORPUSCULAR HEMOGLOBIN 29.7 pg (27.0-33.0); MEAN CORPUSCULAR HGB CONC 32.2 g/dl (32.0-36.5); MEAN CORPUSCULAR VOLUME 92.4 fl (80.0-96.0); MONO # 0.4 10^3/uL (0.0-0.8); NEUTROPHILS # 7.8 10^3/uL (1.5-8.5); NEUTROPHILS % 89.3 % (36.0-66.0); PLATELET COUNT, AUTOMATED 195 10^3/uL (150-450); RED BLOOD COUNT 3.53 10^6/uL (4.00-5.40); WHITE BLOOD COUNT 8.7 10^3/uL (4.0-10.0)
[2021-07-10 05:59] LABS: ALBUMIN 3.8 GM/DL (3.2-5.2); BILIRUBIN,TOTAL 0.4 MG/DL (0.2-1.0); CREATININE FOR GFR 1.27 MG/DL (0.55-1.30); GLOMERULAR FILTRATION RATE 42.4 (>32); MAGNESIUM LEVEL 2.2 MG/DL (1.8-2.4); POTASSIUM SERUM 4.4 MEQ/L (3.5-5.1); THYROID STIMULATING HORMONE 0.951 uIU/ML (0.358-3.740); TOTAL PROTEIN 6.4 GM/DL (6.4-8.2)
[2021-07-10] MEDS ORDERED: NS 1,000 ML IV ONE (06:55)
--- NOTE | 2021-07-10 08:20 | REP ---
INDICATION: AMS COMPARISON: 10/16/2019 TECHNIQUE: Portable AP view of the chest FINDINGS: The mediastinum and cardiac silhouette are stable and within normal limits for portable technique. The lung caballero are clear without acute consolidation, effusion, or pneumothorax. Skeletal structures are intact. IMPRESSION: No acute cardiopulmonary process appreciated. <Electronically signed by Rigoberto Wilson > 07/10/21 0815
[2021-07-10 08:31] VITALS: BP 139/61
--- NOTE | 2021-07-11 16:43 | ECGEPIP ---
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
== END 2021-07-10 09:21 | disposition home or self-care (01) ==
LOC: M ED 23:06
DX: R53.1 Weakness (principal); R25.2 Cramp and spasm; I10 Essential (primary) hypertension; E78.5 Hyperlipidemia, unspecified; F41.9 Anxiety disorder, unspecified; E03.9 Hypothyroidism, unspecified; Z79.899 Other long term (current) drug therapy; Z88.0 Allergy status to penicillin; Z88.2 Allergy status to sulfonamides; Z88.5 Allergy status to narcotic agent; Z88.1 Allergy status to other antibiotic agents; Z88.8 Allergy status to other drugs, medicaments and biological substances

== ENCOUNTER → 2021-08-14 | Outpatient (REF) | payer MEDICARE, BC ==
[2021-08-14 18:27] LABS: SOURCE, BODY FLUID GLUCOSE RT KNEE
[2021-08-14 18:35] LABS: CRYSTALS, BODY FLUID NONE SEEN (NONE SEEN); SOURCE, BODY FLUID CRYSTALS RT KNEE
[2021-08-14 18:38] LABS: SOURCE, BODY FLUID RT KNEE; SYNOVIAL FLUID COLOR AMBER (COLORLESS)
[2021-08-15 07:53] LABS: BODY FLUID RHEUMATOID SCREEN NEGATIVE (NEGATIVE)
[2021-08-15 07:54] LABS: MUCIN CLOT TEST 3+ (4+)
== END ==
LOC: M LAB REF 17:49
PROVIDERS: ATTEND Physician Assistant
DX: M25.461 Effusion, right knee (principal)

== ENCOUNTER → 2021-09-05 | Outpatient (REF) | payer MEDICARE, BC ==
[2021-09-05 17:08] LABS: FERRITIN 564 NG/ML (8-252); IRON (FE) 73 UG/DL (50-170); PERCENT SATURATION 23.5 % (13.2-45.0); TOTAL IRON BINDING CAPACITY 310 UG/DL (250-450)
[2021-09-05 17:15] LABS: FOLATE > 24.0 NG/ML (>5.4)
== END ==
LOC: M LAB REF 16:20
PROVIDERS: ATTEND Nurse Practitioner Adult Health
DX: D64.9 Anemia, unspecified (principal); F02.81 Dementia in other diseases classified elsewhere, unspecified severity, with behavioral disturbance

== ENCOUNTER 2022-02-07 11:17 | Emergency (ER) | payer MEDICARE, BC ==
[~2022-02-07] VITALS: Ht 160 cm; Wt 50.9 kg
[~2022-02-07 11:17] MED LIST changes: -GLUCTAB6 PO; +GLUCTAB7 PO
[2022-02-07] MEDS ORDERED: BUPR10TASR PO (12:07)
[2022-02-07] MEDS ORDERED: ASPI81CH33 PO (12:07)
[2022-02-07] MEDS ORDERED: AMLO1TAB25 PO (12:07)
[2022-02-07] MEDS ORDERED: IBUPROFEN 100 MG/5 ML SUSP UDC DYE FREE PO ONE (16:45)
[2022-02-07 17:32] LABS: BASO % 0.5 % (0.0-1.0); EOS % 0.5 % (0.0-3.0); HEMATOCRIT 41.6 % (36.0-47.0); HEMOGLOBIN 13.9 g/dl (12.0-15.5); LYMPH # 1.4 10^3/uL (1.5-5.0); LYMPH % 16.5 % (24.0-44.0); MEAN CORPUSCULAR HEMOGLOBIN 30.8 pg (27.0-33.0); MEAN CORPUSCULAR HGB CONC 33.4 g/dl (32.0-36.5); MONO # 0.5 10^3/uL (0.0-0.8); MONO % 6.3 % (2.0-8.0); NEUTROPHILS # 6.3 10^3/uL (1.5-8.5); PLATELET COUNT, AUTOMATED 271 10^3/uL (150-450); RED BLOOD COUNT 4.52 10^6/uL (4.00-5.40); WHITE BLOOD COUNT 8.3 10^3/uL (4.0-10.0)
[2022-02-07 17:50] LABS: CREATININE FOR GFR 1.23 MG/DL (0.55-1.30); POTASSIUM SERUM 4.6 MEQ/L (3.5-5.1)
[2022-02-07] MEDS ORDERED: MORPHINE 4 MG/ML 1ML VIAL/SYRINGE IV ONE (18:00)
[2022-02-07] MEDS ORDERED: PERC5TAB12 PO (20:06)
[2022-02-07 20:10] VITALS: BP 172/86
== END 2022-02-07 20:22 | disposition home or self-care (01) ==
LOC: M ED 11:17
DX: M25.551 Pain in right hip (principal); M25.751 Osteophyte, right hip; M16.10 Unilateral primary osteoarthritis, unspecified hip; I10 Essential (primary) hypertension; E78.5 Hyperlipidemia, unspecified; Z79.1 Long term (current) use of non-steroidal anti-inflammatories (NSAID); Z79.890 Hormone replacement therapy; Z79.899 Other long term (current) drug therapy
CPT/HCPCS: 72190; 73502; 73700; 80048; 85025; 96374; 99284; J2270